=== PATIENT | female | born 1930 | race Caucasian/White ===

== ENCOUNTER → 2017-03-15 | Outpatient (CLI) | payer OTHER ==
[~2017-03-15] MED LIST: ACET-1311 PO; AMX500 PO; CHOL200010 PO; DOCU-94 PO; EFF75 PO; HYDR-5688 PO; NAPR375T3 PO; RANI150T3 PO; SENN-61 PO; TRAZ50TA35 PO
[2017-03-15 13:46] LABS: AST/SGOT 12 U/L (15-37); BLOOD UREA NITROGEN 17 mg/dl (7-18); CARBON DIOXIDE 28 mmol/L (21-32); CHLORIDE 108 mmol/L (98-107); GLUCOSE 125 mg/dl (70-99); POTASSIUM 3.6 mmol/L (3.5-5.1); SODIUM 143 mmol/L (136-145)
[2017-03-15 13:48] LABS: ALKALINE PHOSPHATASE 34 U/L (45-117); ALT/SGPT 11 U/L (12-78)
== END | disposition home or self-care (01) ==
LOC: C.LABBFT 10:22
PROVIDERS: ATTEND Family Medicine
DX: I10 Essential (primary) hypertension (principal); R26.9 Unspecified abnormalities of gait and mobility; F41.9 Anxiety disorder, unspecified

== ENCOUNTER 2017-04-23 09:23 | Emergency (ER) | payer OTHER ==
[~2017-04-23] VITALS: Ht 165.1 cm; Wt 63.0 kg
[~2017-04-23 09:23] MED LIST changes: +NAPR-1221 PO; -NAPR375T3 PO
[2017-04-23 09:45] VITALS: TEMP 36.6; Ht 165.1 cm; Wt 63.0 kg
[2017-04-23 10:01] LABS: BASO % 0.6 %; BASO ABS # 0.04 K/uL (0-0.2); COMPLETE YES; EOS % 4.2 %; HEMATOCRIT 37.6 % (37-47); IG% 0.1 %; LYMPH % 15.7 %; LYMPH ABS # 1.05 K/uL (1.2-3.4); MEAN CORPUSCULAR HEMOGLOBIN 28.9 pg (25-34); MEAN CORPUSCULAR HGB CONC 32.2 g/dl (32-36); MEAN PLATELET VOLUME 9.3 fL (7.4-10.4); MONO % 13.8 %; NEUT % 65.6 %; PLATELET COUNT 294 K/uL (130-400); RED BLOOD COUNT 4.18 M/uL (4.2-5.4); WHITE BLOOD COUNT 6.67 K/uL (4.8-10.8)
--- NOTE | 2017-04-23 10:20 | DIAGNOSTIC IMAGING REPORT ---
CHEST ONE VIEW PORTABLE CLINICAL HISTORY: 87 years-old Female presenting with AMS. TECHNIQUE: Portable upright AP view of the chest was obtained. COMPARISON: 06/02/2016. FINDINGS: Partially visualized ventriculoperitoneal shunt, which appears loosely looped in the right upper quadrant of the abdomen. Prominent aortic contour with atherosclerosis. Cardiac silhouette top normal in size. Prominent reticular lung markings unchanged from prior exam. No new focal infiltrate. No large effusion or pneumothorax. Osteopenia suggested. Partially visualized cervical fusion hardware. Upper abdomen normal. IMPRESSION: 1. Expected appearance of the ventriculoperitoneal shunt along the visualized course. 2. Chronic reticular lung markings could indicate underlying chronic lung disease. No new focal infiltrate. Electronically signed by: Antonio Winston M.D. 04/23/2017 10:17 AM Dictated Date/Time: 04/23/2017 10:15 AM
[2017-04-23] MEDS ORDERED: ZOLP6.2529 PO (10:24)
[2017-04-23] MEDS ORDERED: MULT60CA PO (10:24)
--- NOTE | 2017-04-23 10:27 | DIAGNOSTIC IMAGING REPORT ---
CT HEAD WITHOUT CONTRAST (CT) CLINICAL HISTORY: R mental status. Confusion. COMPARISON STUDY: 04/26/2014 TECHNIQUE: Axial CT of the brain is performed from the vertex to the skull base. IV contrast was not administered for this examination. A dose lowering technique was utilized adhering to the principles of ALARA. CT DOSE: 614.27 mGy.cm FINDINGS: No intra or extra-axial mass lesions are visualized. There is no CT evidence of acute cortical infarction. There is no evidence of midline shift. There is no acute hemorrhage. No calvarial fractures are visualized. There are patchy white matter hypodensities likely on a small vessel basis. There is mild ventricular dilatation, slightly less pronounced than on the preceding study. There has been interval placement of a right frontal shunt catheter. Tip terminates within the anterior horn the right lateral ventricle. There is minor mucosal thickening within the left posterior sphenoid. IMPRESSION: 1. Interval placement of a right frontal ventriculostomy catheter 2. No acute intracranial findings. Electronically signed by: Emir Barrios M.D. 04/23/2017 10:26 AM Dictated Date/Time: 04/23/2017 10:23 AM
[2017-04-23] MEDS ORDERED: ZOLP5TAB6 PO (10:28)
[2017-04-23 10:36] LABS: ALT/SGPT 17 U/L (12-78); AST/SGOT 12 U/L (15-37); BLOOD UREA NITROGEN 18 mg/dl (7-18); BUN/CREATININE RATIO 32.9 (10-20); CALCIUM 8.4 mg/dl (8.5-10.1); CARBON DIOXIDE 27 mmol/L (21-32); CHLORIDE 105 mmol/L (98-107); CREATININE 0.56 mg/dl (0.60-1.20); GLUCOSE 91 mg/dl (70-99); POTASSIUM 4.4 mmol/L (3.5-5.1); SODIUM 143 mmol/L (136-145)
[2017-04-23 10:39] LABS: ALKALINE PHOSPHATASE 31 U/L (45-117)
[2017-04-23 11:03] LABS: URINE APPEARANCE TURBID (CLEAR); URINE BILIRUBIN NEG (NEG); URINE COLOR YELLOW; URINE NITRITE POS (NEG); URINE SPECIFIC GRAVITY 1.025 (1.000-1.030); UROBILINOGEN NEG (NEG); ZZURINE CULT IF INDIC CATH YES
[2017-04-23 11:07] LABS: MANUAL MICROSCOPIC REQUIRED? NO; REVIEW REQ? YES
[2017-04-23] MEDS ORDERED: CEFTRIAXONE SOD INJ 1 GM ADDVIAL IV STA (11:18)
[2017-04-23] MEDS ORDERED: CEPH500C PO (11:22)
--- NOTE | 2017-04-23 11:22 | EMERGENCY ROOM VISIT NOTE ---
History Report prepared by Shahida: Glen Quiñones Under the Supervision of: Dr. Qamar Sadler M.D. First contact with patient: 09:42 Stated Complaint: CONFUSION History of Present Illness The patient is a 87 year old female who presents to the Emergency Room by EMS with complaints of a constant altered mental status beginning shortly prior to arrival. She believes her caregiver called EMS. Nursing staff states that the patient was reported to have been slightly confused upon waking up today. They state that the patient was reported to have been complaining of "not feeling well". They note that the patient has been taking Ambien to sleep recently. The patient denies taking an increased dose of Ambien. She also complains of mild burning with urination. The patient denies any SOB, neck pain, abdominal pain, chest pain, or headache. Source of History: patient, nursing staff Onset: Shortly prior to arrival Quality: other (altered mental status) Timing: constant Associated Symptoms: + urinary symptoms (mild burning ), No headache, No neck pain, No chest pain, No SOB, No abdominal pain, No back pain Review of Systems See HPI for pertinent positives & negatives. A total of 10 systems reviewed and were otherwise negative. Past Medical & Surgical Medical Problems: (1) Displaced fracture of right femoral neck (2) Infection of prosthetic hip joint Surgical Problems: (1) Spinal stenosis Family History No significant family history Social History Smoking Status: Never Smoker Alcohol Use: none Drug Use: none Marital Status: Housing Status: lives with significant other Occupation Status: retired Current/Historical Medications Scheduled Amoxicillin (Amoxicillin), 2,000 MG PO UD Cephalexin Monohydrate (Keflex), 500 MG PO TID Cholecalciferol (Vitamin D), 4,000 UNIT PO DAILY Multiple Vitamins W/ Minerals (Preservision Areds 2), 1 TAB PO BID Ranitidine Hcl (Zantac), 150 MG PO BID Venlafaxine Hcl (Effexor), 75 MG PO QPM Zolpidem Tartrate (Zolpidem Tartrate Er), 6.25 MG PO HS Scheduled PRN Acetaminophen (Tylenol), 650 MG PO Q4 PRN for Pain Hydrocodone/Acetaminophen 5MG/325MG (Onward 5MG/325MG), 1-2 TABLET PO Q4 PRN for Pain Zolpidem Tartrate (Zolpidem Tartrate), 5 MG PO HS PRN for Sleep Allergies Coded Allergies: No Known Allergies (Unverified , 04/23/17) Physical Exam Vital Signs Date Time Temp Pulse Resp B/P (MAP) Pulse Ox O2 Delivery O2 Flow Rate FiO2 04/23/17 12:26 69 18 177/79 99 Room Air 04/23/17 11:06 67 16 181/86 93 Room Air 04/23/17 09:46 65 04/23/17 09:45 36.6 63 18 168/87 91 Room Air Physical Exam GENERAL: Patient is elderly appearing and in no acute distress. HEENT: No acute trauma, normocephalic atraumatic, mucous membranes moist, no nasal congestion, no scleral icterus. NECK: No stridor, no adenopathy, no meningismus, trachea is midline. LUNGS: No dyspnea. Clear to auscultation and equal bilaterally. No wheeze, no rhonchi. HEART: Regular rate and rhythm. No murmurs, rubs, gallops appreciated. ABDOMEN: Soft, nontender, bowel sounds positive, no masses appreciated, no peritonitis. BACK: No midline tenderness, no CVA tenderness EXTREMITIES: Normal motion all extremities, no cyanosis, no edema. NEUROLOGIC: Alert and oriented, no acute motor or sensory deficits, no focal weakness, cranial nerves grossly intact. SKIN: No rash, no jaundice, no diaphoresis. Medical Decision & Procedures ER Provider Diagnostic Interpretation: Radiology results and stated below per my review and radiologist interpretation: CT HEAD WITHOUT CONTRAST (CT) FINDINGS: No intra or extra-axial mass lesions are visualized. There is no CT evidence of acute cortical infarction. There is no evidence of midline shift. There is no acute hemorrhage. No calvarial fractures are visualized. There are patchy white matter hypodensities likely on a small vessel basis. There is mild ventricular dilatation, slightly less pronounced than on the preceding study. There has been interval placement of a right frontal shunt catheter. Tip terminates within the anterior horn the right lateral ventricle. There is minor mucosal thickening within the left posterior sphenoid. IMPRESSION: 1. Interval placement of a right frontal ventriculostomy catheter 2. No acute intracranial findings. Electronically signed by: Emir Barrios M.D. 04/23/2017 10:26 AM CHEST ONE VIEW PORTABLE FINDINGS: Partially visualized ventriculoperitoneal shunt, which appears loosely looped in the right upper quadrant of the abdomen. Prominent aortic contour with atherosclerosis. Cardiac silhouette top normal in size. Prominent reticular lung markings unchanged from prior exam. No new focal infiltrate. No large effusion or pneumothorax. Osteopenia suggested. Partially visualized cervical fusion hardware. Upper abdomen normal. IMPRESSION: 1. Expected appearance of the ventriculoperitoneal shunt along the visualized course. 2. Chronic reticular lung markings could indicate underlying chronic lung disease. No new focal infiltrate. Electronically signed by: Antonio Winston M.D. 04/23/2017 10:17 AM RIGHT THUMB 3 VIEWS DISCUSSION: The bones are osteopenic. There is a comminuted intra-articular fracture of the distal phalanx. 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 IMPRESSION: Comminuted intra-articular fracture of the distal phalanx Electronically signed by: Emir Barrios M.D. 04/23/2017 1:46 PM Laboratory Results 04/23/17 09:50 Red Blood Count 4.18, Mean Corpuscular Volume 90.0, Mean Corpuscular Hemoglobin 28.9, Mean Corpuscular Hemoglobin Concent 32.2, Mean Platelet Volume 9.3, Neutrophils (%) (Auto) 65.6, Lymphocytes (%) (Auto) 15.7, Monocytes (%) (Auto) 13.8, Eosinophils (%) (Auto) 4.2, Basophils (%) (Auto) 0.6, Neutrophils # (Auto ) 4.37, Lymphocytes # (Auto) 1.05, Monocytes # (Auto) 0.92, Eosinophils # (Auto ) 0.28, Basophils # (Auto) 0.04 04/23/17 09:50 Test 04/23/17 09:50 04/23/17 10:40 White Blood Count 6.67 K/uL (4.8-10.8) Red Blood Count 4.18 M/uL (4.2-5.4) Hemoglobin 12.1 g/dL (12.0-16.0) Hematocrit 37.6 % (37-47) Mean Corpuscular Volume 90.0 fL (80-100) Mean Corpuscular Hemoglobin 28.9 pg (25-34) Mean Corpuscular Hemoglobin Concent 32.2 g/dl (32-36) Platelet Count 294 K/uL (130-400) Mean Platelet Volume 9.3 fL (7.4-10.4) Neutrophils (%) (Auto) 65.6 % Lymphocytes (%) (Auto) 15.7 % Monocytes (%) (Auto) 13.8 % Eosinophils (%) (Auto) 4.2 % Basophils (%) (Auto) 0.6 % Neutrophils # (Auto) 4.37 K/uL (1.4-6.5) Lymphocytes # (Auto) 1.05 K/uL (1.2-3.4) Monocytes # (Auto) 0.92 K/uL (0.11-0.59) Eosinophils # (Auto) 0.28 K/uL (0-0.5) Basophils # (Auto) 0.04 K/uL (0-0.2) RDW Standard Deviation 48.5 fL (36.4-46.3) RDW Coefficient of Variation 14.8 % (11.5-14.5) Immature Granulocyte % (Auto) 0.1 % Immature Granulocyte # (Auto) 0.01 K/uL (0.00-0.02) Anion Gap 11.0 mmol/L (3-11) Est Creatinine Clear Calc Drug Dose 63.7 ml/min Estimated GFR () 97.2 Estimated GFR (Non- 83.8 BUN/Creatinine Ratio 32.9 (10-20) Calcium Level 8.4 mg/dl (8.5-10.1) Total Bilirubin 0.3 mg/dl (0.2-1) Direct Bilirubin 0.1 mg/dl (0-0.2) Aspartate Amino Transf (AST/SGOT) 12 U/L (15-37) Alanine Aminotransferase (ALT/SGPT) 17 U/L (12-78) Alkaline Phosphatase 31 U/L (45-117) Troponin I < 0.015 ng/ml (0-0.045) Total Protein 6.6 gm/dl (6.4-8.2) Albumin 3.6 gm/dl (3.4-5.0) Urine Color YELLOW Urine Appearance TURBID (CLEAR) Urine pH 6.0 (4.5-7.5) Urine Specific [place] 1.025 (1.000-1.030) Urine Protein 2+ (NEG) Urine Glucose (UA) NEG (NEG) Urine Ketones TRACE (NEG) Urine Occult Blood 2+ (NEG) Urine Nitrite POS (NEG) Urine Bilirubin NEG (NEG) Urine Urobilinogen NEG (NEG) Urine Leukocyte Esterase LARGE (NEG) Urine WBC (Auto) >30 /hpf (0-5) Urine RBC (Auto) 10-30 /hpf (0-4) Urine Hyaline Casts (Auto) 1-5 /lpf (0-5) Urine Epithelial Cells (Auto) 10-20 /lpf (0-5) Urine Bacteria (Auto) 4+ (NEG) Urine Yeast (Auto) (NONE PRSENT) Laboratory results as reviewed by me. Medications Administered Medications (Trade) Dose Ordered Sig/Kaitlin Route Start Time Stop Time Status Last Admin Dose Admin Ceftriaxone Sodium (Rocephin Inj) 1 gm NOW STAT IV 04/23/17 11:18 04/23/17 11:19 DC 04/23/17 11:39 1 GM ECG Indication: altered mental status Rate (beats per minute): 58 Rhythm: sinus bradycardia Findings: no acute ischemic change, no ectopy ED Course 0944: The patient was evaluated in room A11B. A complete history and physical exam was performed. 1118: Ordered Rocephin Inj 1 gm IV. 1120: Reevaluated the patient. She was sleeping during her time here. She is now awake, answering all questions and feels fine. She notes that she injured her finger recently. 1340: Reevaluated the patient. Her caregiver is at bedside. She requests an ambulatory trial. Discussed results and discharge instructions: she verbalized understanding and agreement. The patient is ready for discharge. Medical Decision Differential: Toxicological, Infectious, Stroke, SAH, Trauma, Electrolyte Abnormality, Hypoglycemia, Alcohol Intoxication, Drug Intoxication, Cardiac Abnormality, Sepsis, Meningitis/Encephalitis, Trauma, Excited Delirium, Serotonin Syndrome, Psychiatric, amongst other pathologies entertained. 87 yr female arrives for evaluation following altered mental status. Confused on arrival without acute findings on exam. CT head, cxr, labs unremarkable and patient is found to have UTI. We gave her IV Rocephin and she slept for 2 hours. We woke her up and she is feeling much better and interactive. Notes right thumb pain s/p hitting it this morning which revealed distal thumb fracture on xray and placed in splint. Ambulated and feeling well thus discharged to home with plan to do PO Keflex x 1 week. Reviewed symptoms requiring RTED. Medication Reconcilliation Current Medication List: was personally reviewed by me Blood Pressure Screening Patient's blood pressure: Elevated blood pressure Blood pressure disposition: Referred to PCP Impression Primary Impression: UTI (urinary tract infection) Additional Impressions: Confusion Thumb fracture Scribe Attestation The scribe's documentation has been prepared under my direction and personally reviewed by me in its entirety. I confirm that the note above accurately reflects all work, treatment, procedures, and medical decision making performed by me. Departure Information Dispostion Home / Self-Care Prescriptions Cephalexin Monohydrate (Keflex) 500 Mg Cap 500 MG PO TID for 7 Days, #21 CAP Prov: Qamar Sadler M.D. 04/23/17 Referrals Antonio Barrera M.D. (PCP) Patient Instructions My [facility], UTI Additional Instructions Return if fever, vomiting, worsening confusion, falls, or other concerns. Wear splint on finger for next 2 weeks. Have thumb rechecked by primary provider. Return if worsening pain, swelling or other concerns. Problem Qualifiers
[2017-04-23 12:26] VITALS: BP 177/79; PULSE 69; O2SAT 99
--- NOTE | 2017-04-23 13:47 | DIAGNOSTIC IMAGING REPORT ---
RIGHT THUMB 3 VIEWS CLINICAL HISTORY: right thumb injury, bruising PAIN COMPARISON: None. DISCUSSION: The bones are osteopenic. There is a comminuted intra-articular fracture of the distal phalanx. 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 IMPRESSION: Comminuted intra-articular fracture of the distal phalanx Electronically signed by: Emir Barrios M.D. 04/23/2017 1:46 PM Dictated Date/Time: 04/23/2017 1:38 PM
== END 2017-04-23 12:47 | disposition home or self-care (01) ==
LOC: EDBD 09:23 → C.EDA 09:24
DX: N39.0 Urinary tract infection, site not specified (principal); S62.521A Displaced fracture of distal phalanx of right thumb, initial encounter for closed fracture; W22.8XXA Striking against or struck by other objects, initial encounter

== ENCOUNTER 2017-04-23 21:29 | Emergency (ER) | payer OTHER ==
[~2017-04-23] VITALS: Ht 162.6 cm; Wt 61.4 kg
[~2017-04-23 21:29] MED LIST changes: +CEPH500C PO; +MULT60CA PO; +ZOLP5TAB6 PO; +ZOLP6.2529 PO
[2017-04-23] MEDS ORDERED: SODIUM CHLORIDE 0.9% 1000ML 1,000 ML IV SCH (21:30)
--- NOTE | 2017-04-23 21:47 | DIAGNOSTIC IMAGING REPORT ---
CT OF THE HEAD WITHOUT CONTRAST CLINICAL HISTORY: Stroke. COMPARISON STUDY: Head CT April 26, 2014 and April 23, 2017 at 10:[address] DOSE: 655.73 mGy.cm TECHNIQUE: Helical axial images of the head were obtained without IV contrast. Automated exposure control was utilized for the study. A dose lowering technique was utilized adhering to the principles of ALARA. FINDINGS: There has been interval development of a 3.6 x 2.2 intraparenchymal hematoma within the posterior right frontal lobe since head CT performed earlier today. There is mild associated vasogenic edema. Ventricular system is stable. A right frontal ventriculostomy catheter is unchanged in position. Basilar cisterns are patent. There are no extra-axial collections. White matter hypodensities suggest moderate disease. No calvarial fracture is identified. Mild secretions are noted within the left sphenoid sinus. IMPRESSION: Interval development of a 3.6 x 2.2 cm intraparenchymal hematoma within the posterior right frontal lobe since head CT performed earlier today. Mild associated vasogenic edema. Findings discussed with Dr. Tucker at time of dictation. Otherwise, unchanged appearance of the head. Electronically signed by: Rl Lee M.D. 04/23/2017 9:46 PM Dictated Date/Time: 04/23/2017 9:40 PM
[2017-04-23 21:49] VITALS: TEMP 36.7; Ht 162.6 cm; Wt 61.4 kg
[2017-04-23] MEDS ORDERED: ACETAMINOPHEN IV 100 ML IV STA (21:51)
[2017-04-23] MEDS ORDERED: METOPROLOL TARTRATE 1 MG/ML VIAL IV STA (21:56)
[2017-04-23 21:57] LABS: BASO % 0.5 %; BASO ABS # 0.04 K/uL (0-0.2); COMPLETE YES; EOS % 2.3 %; HEMATOCRIT 40.9 % (37-47); IG% 0.2 %; LYMPH ABS # 1.33 K/uL (1.2-3.4); MEAN CELL VOLUME 89.3 fL (80-100); MEAN CORPUSCULAR HEMOGLOBIN 29.7 pg (25-34); MEAN CORPUSCULAR HGB CONC 33.3 g/dl (32-36); MEAN PLATELET VOLUME 9.6 fL (7.4-10.4); MONO % 12.9 %; NEUT % 68.1 %; PLATELET COUNT 340 K/uL (130-400); RED BLOOD COUNT 4.58 M/uL (4.2-5.4)
[2017-04-23] MEDS ORDERED: LEVETIRACETAM IV 1,000 MG in DEXTROSE 5% 100ML 100 ML IV STA (21:57)
[2017-04-23 22:06] LABS: INR 1.1 (0.9-1.1); PARTIAL THROMBOPLASTIN RATIO 1.2; PROTHROMBIN TIME (PATIENT) 11.5 SECONDS (9.0-12.0)
[2017-04-23 22:06] LABS: ISTAT CREATININE 0.6 mg/dl (0.6-1.3); ISTAT HEMOGLOBIN 14.3 g/dl (12.0-16.0); ISTAT IONIZED CALCIUM 1.2 mmol/l (1.12-1.32)
--- NOTE | 2017-04-23 22:13 | EMERGENCY ROOM VISIT NOTE ---
History Report prepared by Shahida: Josue Manuel Under the Supervision of: Dr. Bogdan Reyes M.D. First contact with patient: 21:35 Chief Complaint: STROKE SYMPTOMS Stated Complaint: STROKE ALERT Nursing Triage Summary: Pt presents als for evaluation of sudden onset headache and left arm weakness starting at 2044 tonight. Pt was seen in ER earlier today for fall. Pt unable to lift arm off bed. History of Present Illness The patient is an 87 year old female who presents to the Emergency Room with complaints of sudden onset headache and left sided weakness occurring around 1999 tonight. The patient currently rates her discomfort as a 10/10 in severity , and this is the worst headache of her life. The patient is not currently on any blood thinners. She also had a fall this morning, and she was complaining of left thumb pain, and she was not complaining of these symptoms this morning. The patient has a history of a [employer] shunt on the right side which was placed in April of 2016. Source of History: patient, family, EMS Onset: 1999 Position: head, other (left side) Symptom Intensity: 10/10 Quality: other (weakness) Timing: other (sudden onset) Associated Symptoms: + headache, + weakness Review of Systems See HPI for pertinent positives & negatives. A total of 10 systems reviewed and were otherwise negative. Past Medical & Surgical Medical Problems: (1) Displaced fracture of right femoral neck (2) Infection of prosthetic hip joint Surgical Problems: (1) Spinal stenosis Family History No significant family history Social History Smoking Status: Never Smoker Alcohol Use: none Drug Use: none Marital Status: Housing Status: lives with significant other Occupation Status: retired Current/Historical Medications Scheduled Amoxicillin (Amoxicillin), 2,000 MG PO UD Cephalexin Monohydrate (Keflex), 500 MG PO TID Cholecalciferol (Vitamin D), 4,000 UNIT PO DAILY Multiple Vitamins W/ Minerals (Preservision Areds 2), 1 TAB PO BID Ranitidine Hcl (Zantac), 150 MG PO BID Venlafaxine Hcl (Effexor), 75 MG PO QPM Zolpidem Tartrate (Zolpidem Tartrate Er), 6.25 MG PO HS Scheduled PRN Acetaminophen (Tylenol), 650 MG PO Q4 PRN for Pain Hydrocodone/Acetaminophen 5MG/325MG ([place] 5MG/325MG), 1-2 TABLET PO Q4 PRN for Pain Zolpidem Tartrate (Zolpidem Tartrate), 5 MG PO HS PRN for Sleep Allergies Coded Allergies: No Known Allergies (Unverified , 04/23/17) Physical Exam Vital Signs Date Time Temp Pulse Resp B/P (MAP) Pulse Ox O2 Delivery O2 Flow Rate FiO2 04/23/17 23:41 70 122/69 95 04/23/17 23:36 71 21 111/59 95 04/23/17 23:31 70 24 128/67 94 04/23/17 23:26 72 21 119/58 95 04/23/17 23:21 70 19 129/65 95 04/23/17 23:16 73 17 124/64 96 04/23/17 23:11 72 19 126/63 96 04/23/17 23:07 126/68 04/23/17 23:06 74 18 95 04/23/17 23:01 132/63 04/23/17 22:59 73 21 95 04/23/17 22:57 136/68 04/23/17 22:51 139/65 04/23/17 22:49 72 17 95 04/23/17 22:46 130/66 04/23/17 22:41 128/70 04/23/17 22:39 68 20 94 04/23/17 22:36 145/73 04/23/17 22:31 152/74 04/23/17 22:29 61 19 94 04/23/17 22:26 170/75 04/23/17 22:21 157/76 04/23/17 22:19 61 18 94 04/23/17 22:14 65 17 93 04/23/17 22:13 165/81 04/23/17 22:09 63 15 176/79 92 04/23/17 22:05 172/86 04/23/17 22:04 78 17 95 04/23/17 21:59 85 21 94 04/23/17 21:56 Room Air 04/23/17 21:56 72 175/91 04/23/17 21:54 78 26 94 04/23/17 21:49 81 30 94 04/23/17 21:49 36.7 78 18 168/91 94 Room Air 04/23/17 21:46 82 04/23/17 21:44 82 21 95 04/23/17 21:43 168/91 Physical Exam GENERAL: Patient is a healthy-appearing well-nourished female HEAD: Normocephalic atraumatic EYES: Ocular movements intact pupils equal and react to light OROPHARYNX mucous membranes are moist no exudates present no erythema or edema present NECK: Supple no nuchal rigidity CHEST: Good equal expansion LUNGS: Clear and equal to auscultation CARDIAC: Normal S1 and S2 ABDOMEN: Soft nontender no guarding BACK: No CVA tenderness EXTREMITIES: 3/5 strength in the left arm and left leg. No pain upon palpation no clubbing cyanosis or edema NEURO: Patient is following commands and answering questions appropriately. Alert and oriented x3 Cranial Nerves 2-12 grossly intact Medical Decision & Procedures ER Provider Diagnostic Interpretation: Radiology results as stated below per my review and radiologist interpretation: CT OF THE HEAD WITHOUT CONTRAST CLINICAL HISTORY: Stroke. COMPARISON STUDY: Head CT April 26, 2014 and April 23, 2017 at 10:[address] DOSE: 655.73 mGy.cm TECHNIQUE: Helical axial images of the head were obtained without IV contrast. Automated exposure control was utilized for the study. A dose lowering technique was utilized adhering to the principles of ALARA. FINDINGS: There has been interval development of a 3.6 x 2.2 intraparenchymal hematoma within the posterior right frontal lobe since head CT performed earlier today. There is mild associated vasogenic edema. Ventricular system is stable. A right frontal ventriculostomy catheter is unchanged in position. Basilar cisterns are patent. There are no extra-axial collections. White matter hypodensities suggest moderate disease. No calvarial fracture is identified. Mild secretions are noted within the left sphenoid sinus. IMPRESSION: Interval development of a 3.6 x 2.2 cm intraparenchymal hematoma within the posterior right frontal lobe since head CT performed earlier today. Mild associated vasogenic edema. Findings discussed with Dr. Tucker at time of dictation. Otherwise, unchanged appearance of the head. Electronically signed by: Rl Lee M.D. 04/23/2017 9:46 PM Dictated Date/Time: 04/23/2017 9:40 PM CHEST ONE VIEW PORTABLE CLINICAL HISTORY: Stroke. COMPARISON STUDY: Chest radiograph performed earlier today. FINDINGS: Patient is rotated. Ventriculoperitoneal shunt catheter is partially imaged. A 1 level vertebral augmentation within the upper lumbar spine is incidentally noted. Patient is rotated. Interstitial thickening is likely chronic. There is no evidence of pulmonary edema. There is no lobar consolidation. Apparent right suprahilar opacity is unchanged and likely due to summation artifact. Cardiomediastinal silhouette is stable. Cervical spine fusion is incidentally noted. IMPRESSION: No acute cardiopulmonary findings. No change in appearance of the chest. Chronic interstitial thickening consistent with interstitial lung disease. Rotated study. Electronically signed by: Rl Lee M.D. 04/23/2017 10:09 PM Dictated Date/Time: 04/23/2017 10:07 PM Laboratory Results 04/23/17 21:47 Red Blood Count 4.58, Mean Corpuscular Volume 89.3, Mean Corpuscular Hemoglobin 29.7, Mean Corpuscular Hemoglobin Concent 33.3, Mean Platelet Volume 9.6, Neutrophils (%) (Auto) 68.1, Lymphocytes (%) (Auto) 16.0, Monocytes (%) (Auto) 12.9, Eosinophils (%) (Auto) 2.3, Basophils (%) (Auto) 0.5, Neutrophils # (Auto ) 5.65, Lymphocytes # (Auto) 1.33, Monocytes # (Auto) 1.07, Eosinophils # (Auto ) 0.19, Basophils # (Auto) 0.04 04/23/17 21:47 Test 04/23/17 21:47 04/23/17 21:52 04/23/17 21:54 White Blood Count 8.30 K/uL (4.8-10.8) Red Blood Count 4.58 M/uL (4.2-5.4) Hemoglobin 13.6 g/dL (12.0-16.0) Hematocrit 40.9 % (37-47) Mean Corpuscular Volume 89.3 fL (80-100) Mean Corpuscular Hemoglobin 29.7 pg (25-34) Mean Corpuscular Hemoglobin Concent 33.3 g/dl (32-36) Platelet Count 340 K/uL (130-400) Mean Platelet Volume 9.6 fL (7.4-10.4) Neutrophils (%) (Auto) 68.1 % Lymphocytes (%) (Auto) 16.0 % Monocytes (%) (Auto) 12.9 % Eosinophils (%) (Auto) 2.3 % Basophils (%) (Auto) 0.5 % Neutrophils # (Auto) 5.65 K/uL (1.4-6.5) Lymphocytes # (Auto) 1.33 K/uL (1.2-3.4) Monocytes # (Auto) 1.07 K/uL (0.11-0.59) Eosinophils # (Auto) 0.19 K/uL (0-0.5) Basophils # (Auto) 0.04 K/uL (0-0.2) RDW Standard Deviation 47.7 fL (36.4-46.3) RDW Coefficient of Variation 14.6 % (11.5-14.5) Immature Granulocyte % (Auto) 0.2 % Immature Granulocyte # (Auto) 0.02 K/uL (0.00-0.02) Prothrombin Time 11.5 SECONDS (9.0-12.0) Prothromb Time International Ratio 1.1 (0.9-1.1) Activated Partial Thromboplast Time 30.2 SECONDS (21.0-31.0) Partial Thromboplastin Ratio 1.2 Est Creatinine Clear Calc Drug Dose 55.2 ml/min Estimated GFR () 94.0 Estimated GFR (Non- 81.1 BUN/Creatinine Ratio 28.2 (10-20) Calcium Level 9.7 mg/dl (8.5-10.1) Magnesium Level 2.1 mg/dl (1.8-2.4) Total Creatine Kinase 39 U/L (26-192) Creatine Kinase MB 1.3 ng/ml (0.5-3.6) Creatine Kinase MB Ratio 3.3 (0-3.0) Troponin I < 0.015 ng/ml (0-0.045) Bedside Glucose 88 mg/dl (70-90) Bedside Hemoglobin 14.3 g/dl (12.0-16.0) Bedside Hematocrit 42 % (37-47) Bedside Sodium 139 mEq/L (135-144) Bedside Potassium 4.4 mEq/L (3.3-5.0) Bedside Chloride 104 mEq/L (101-112) Bedside Total CO2 29 mEq/l (24-31) Anion Gap 12.0 mmol/L (16-25) Bedside Blood Urea Nitrogen 19 mg/dl (7-18) Bedside Creatinine 0.6 mg/dl (0.6-1.3) Bedside Glucose (other) 89 mg/dl (70-99) Bedside Ionized Calcium (Jhonatan) 1.20 mmol/l (1.12-1.32) Labs reviewed by ED physician. Medications Administered Medications (Trade) Dose Ordered Sig/Kaitlin Route Start Time Stop Time Status Last Admin Dose Admin Sodium Chloride 1,000 ml @ 50 mls/hr Q20H IV 04/23/17 21:30 04/24/17 00:55 DC 04/23/17 21:30 50 MLS/HR Acetaminophen 100 ml @ 400 mls/hr NOW STAT IV 04/23/17 21:51 04/23/17 22:05 DC 04/23/17 21:51 400 MLS/HR Metoprolol Tartrate (Lopressor Iv) 10 mg NOW STAT IV 04/23/17 21:56 04/23/17 21:57 DC 04/23/17 21:56 10 MG Hydralazine HCl (HydrALAZINE INJ) 10 mg NOW STAT IV. 04/23/17 22:27 04/23/17 22:29 DC 04/23/17 22:27 10 MG ECG Indication: weakness Rate (beats per minute): 82 Rhythm: normal sinus Findings: no acute ischemic change, no ectopy, other (Old inferior infarct) ED Course 0: Sodium Chloride 1000 ml @ 50 mls/hr IV 2134: Past medical records reviewed. The patient was evaluated in room B1. A complete history and physical examination was performed. 2150: Acetaminophen 100ml @ 400mls/hr IV 2151: I discussed the patient's case with Dr. Bowles, [facility], and he wants the patient's blood pressure to come down before transfer. 2155: Lopressor IV 10mg IV 2156: Levetiracetam 1000mg/ Dextrose 110ml @ 400mls/hr IV 2214: I discussed the patient's case with Dr. Nam, [facility] ICU, and he will accept the patient as a transfer. 2227: Hydralazine HCl 10mg IV Medical Decision Differential diagnosis: Etiologies such as metabolic, infection, hypo/hyperglycemia, electrolyte abnormalities, cardiac sources, intracerebral event, toxicologic, neurologic, as well as others were entertained. This is an 87-year-old female who presents emergency department with sudden onset of being unable to lift her left arm or left leg. Based on the patient's complaint she was immediately sent for CAT scan of the head which was concerning for intracranial hemorrhage. Upon return from CAT scan to a , I discussed the patient's prognosis with both patient and son. Due to the fact that we do not have a neurosurgeon here at [facility] I asked where they would like to be transferred to. They would both like to go to [facility]. I did discuss the case with the neurosurgeon educational sign language interpreter at [facility] who asked that the patient's blood pressure be controlled area for this reason the patient was given labetalol as well as hydralazine in the emergency department. Repeat examination revealed improvement patient's symptoms. Patient was given Tylenol for her pain. She was transferred via [facility]. Patient and son were in agreement with the treatment plan. Medication Reconcilliation Current Medication List: was personally reviewed by me Blood Pressure Screening Patient's blood pressure: Elevated blood pressure Will be managed by the skilled nursing facilities professional and surgeon Consults Time Called: 2142 [facility] Returned Call: [phone] I discussed the patient's case with Dr. Bowles, [facility], and he wants the patient's blood pressure to come down before transfer. Additional Consults: Time Called: 2142 Consulted Physician: [facility] ICU Returned Call: [phone] Additional Comments: I discussed the patient's case with Dr. Nam, [facility], and he will accept the patient as a transfer. Impression Primary Impression: Intracranial hemorrhage Critical Care I have personally spent greater than 90 minutes of critical care time in the direct management of this patient. This includes bedside care, interpretation of diagnostic studies, and testing, discussion with consultants, patient, and family members, and other required patient management activities. This 90 minutes is in excess of all separately billable procedures. Scribe Attestation The scribe's documentation has been prepared under my direction and personally reviewed by me in its entirety. I confirm that the note above accurately reflects all work, treatment, procedures, and medical decision making performed by me. Departure Information Dispostion Transfer Acute Care Facility Referrals Antonio Barrera M.D. (PCP)
[2017-04-23 22:21] LABS: BLOOD UREA NITROGEN 17 mg/dl (7-18); BUN/CREATININE RATIO 28.2 (10-20); CALCIUM 9.7 mg/dl (8.5-10.1); CARBON DIOXIDE 27 mmol/L (21-32); CHLORIDE 103 mmol/L (98-107); CKMB/CK RATIO 3.3 (0-3.0); CREATININE 0.62 mg/dl (0.60-1.20); GLUCOSE 89 mg/dl (70-99); MAGNESIUM 2.1 mg/dl (1.8-2.4); POTASSIUM 4.3 mmol/L (3.5-5.1); SODIUM 139 mmol/L (136-145)
[2017-04-23] MEDS ORDERED: HydrALAZINE HCL 20 MG/ML VIAL IV. STA (22:27)
[2017-04-23 23:41] VITALS: BP 122/69; PULSE 70; O2SAT 95
== END 2017-04-24 00:04 | disposition short-term general hospital (02) ==
LOC: EDBD 21:29 → C.EDB 21:31
DX: S06.309A Unspecified focal traumatic brain injury with loss of consciousness of unspecified duration, initial encounter (principal); W19.XXXA Unspecified fall, initial encounter; R51 Headache; Z87.81 Personal history of (healed) traumatic fracture; Z79.899 Other long term (current) drug therapy

== ENCOUNTER → 2017-06-20 | Outpatient (CLI) | payer OTHER ==
[~2017-06-20] MED LIST changes: -CEPH500C PO; -DOCU-94 PO; -NAPR-1221 PO; -SENN-61 PO; -TRAZ50TA35 PO
[2017-06-20 17:54] LABS: BLOOD UREA NITROGEN 25 mg/dl (7-18); CREATININE 0.69 mg/dl (0.60-1.20)
== END | disposition home or self-care (01) ==
LOC: C.LABBFT 14:58
PROVIDERS: ATTEND Physician Assistant
DX: Z00.00 Encounter for general adult medical examination without abnormal findings (principal)

== ENCOUNTER → 2017-06-28 | Outpatient (CLI) | payer OTHER ==
[~2017-06-28] MED LIST changes: +CEPH500C2 PO; +CYM30 PO; +LEVE500T PO; +OMEP40CA41 PO; +VENL75CA73 PO
--- NOTE | 2017-06-28 17:08 | EEG Procedure Note ---
EEG Procedure Note Date of Service Jun 28, 2017. Start / End Times Start Time: 2:36 PM End Time: 2:56 PM Referring Physician PETR Marina History This is a 87-year-old female who presents with episodes of twitching. EEG for further evaluation of possible seizure etiology. Home Medication List Scheduled Amoxicillin (Amoxicillin), 2,000 MG PO UD Cholecalciferol (Vitamin D), 4,000 UNIT PO DAILY Multiple Vitamins W/ Minerals (Preservision Areds 2), 1 TAB PO BID Ranitidine Hcl (Zantac), 150 MG PO BID Venlafaxine Hcl (Effexor), 75 MG PO QPM Zolpidem Tartrate (Zolpidem Tartrate Er), 6.25 MG PO HS Scheduled PRN Acetaminophen (Tylenol), 650 MG PO Q4 PRN for Pain Hydrocodone/Acetaminophen 5MG/325MG ([place] 5MG/325MG), 1-2 TABLET PO Q4 PRN for Pain Zolpidem Tartrate (Zolpidem Tartrate), 5 MG PO HS PRN for Sleep Description This is a 21 electrode EEG with a single channel dedicated to limited EKG. The electrodes were placed in accordance with the International 10-20 system. Intermittent movement and electrode artifact noted. Mild head movements noted by fiberglass technician At the start of the recording the patient was in an awake state. Background was well organized and composed of symmetric mixed alpha and beta frequencies. There was a symmetric well-formed moderate amplitude 8-9 Hz posterior dominant rhythm that was reactive to eye opening and closure. Hyperventilation and Intermittent photic stimulation at various frequencies produced no abnormalities. There was no state changes or sleep transients Interpretation This is a normal awake only routine EEG. There was no electrographic seizures or epileptiform discharges. Clinical Correlation A normal EEG does not rule out epilepsy if there is a strong clinical suspicion.
== END | disposition home or self-care (01) ==
LOC: C.NEUR 14:20
PROVIDERS: ATTEND Physician Assistant
DX: R25.3 Fasciculation (principal)

== ENCOUNTER → 2017-06-28 | Outpatient (CLI) | payer OTHER ==
[~2017-06-28] MED LIST changes: +GADAVIST IV PRN
--- NOTE | 2017-06-28 14:54 | DIAGNOSTIC IMAGING REPORT ---
Brain MRI WITH AND WITHOUT CONTRAST HISTORY: INTRAPARENCHYMAL HEMATOMA OF BRAIN TECHNIQUE: Multiplanar multisequence MRI of the brain was performed both before and after the intravenous administration of contrast. COMPARISON STUDY: Head CT 04/23/2017. Outside hospital brain MRI 04/25/2017. FINDINGS: There is a punctate focus of restricted diffusion seen within the left high convexity consistent with an acute infarct. There is again noted a right frontal approach ventriculostomy catheter was terminates in the frontal horn of the right lateral ventricle. This remains unchanged. The ventricles are stable in size. There is diffuse dural/pachymeningeal enhancement and thickening which has progressed. Decrease in size in the 2.0 x 1.2 cm T1 and T2 hyperintense ill-defined focus within the right posterior frontal lobe. There is mild surrounding vasogenic edema. This favors a resolving hematoma. The major vascular flow-voids at the skull base are well-maintained. Multiple scattered foci of T2 hyperintensity seen within the periventricular and subcortical white matter. These are nonspecific but suggestive of advanced microvascular ischemic change. Interval development of left-sided intra-axial fluid collections. These measure up to 1.3 cm in thickness within the left frontal region and up to 1 cm in thickness at the left parietal region. These result in mass effect along the adjacent brain parenchyma. There is approximately 2 mm of right midline shift. These fluid collections or T1 hypointense and T2 hyper to intermediate intensity. Therefore, these favor old subdural hematomas. Empyema is considered less likely. There is no associated restricted diffusion with these fluid collections. IMPRESSION: 1. Decrease in size in the 2.0 x 1.2 cm suspected intracranial hematoma within the right posterior frontal lobe. Mild surrounding vasogenic edema persists. 2. Interval development of left extra-axial fluid collection as described above which favors an old subdural hematoma. However, this was not present on the prior studies. Follow-up head CT in 12 to 24 hours recommended to ensure stability. This results in 2 mm of right midline shift. 3. Progressive diffuse dural/pachymeningeal enhancement and thickening. This may be due to chronic subdural hematomas or postoperative change. An infectious or neoplastic process could also have a similar appearance but is considered less likely. 4. Acute punctate infarct within the left high convexity. 5. Additional findings as described above Electronically signed by: Hill Last M.D. 06/28/2017 2:53 PM Dictated Date/Time: 06/28/2017 2:33 PM
== END | disposition home or self-care (01) ==
LOC: C.MRIBC 12:30
PROVIDERS: ATTEND Physician Assistant
DX: S06.360A Traumatic hemorrhage of cerebrum, unspecified, without loss of consciousness, initial encounter (principal); X58.XXXA Exposure to other specified factors, initial encounter; G93.9 Disorder of brain, unspecified

== ENCOUNTER → 2017-06-29 | Outpatient (CLI) | payer OTHER ==
[~2017-06-29] MED LIST changes: -GADAVIST IV PRN
--- NOTE | 2017-06-29 11:56 | DIAGNOSTIC IMAGING REPORT ---
CT HEAD WITHOUT CONTRAST (CT) CLINICAL HISTORY: S06.360A intraparenchymal hematoma. Follow-up study. COMPARISON STUDY: Head CT dated 04/23/2017, MRI the brain dated 06/28/2017 TECHNIQUE: Axial CT of the brain is performed from the vertex to the skull base. IV contrast was not administered for this examination. A dose lowering technique was utilized adhering to the principles of ALARA. CT DOSE: 687.98 mGy.cm FINDINGS: There is a right frontal ventriculostomy catheter, unchanged in appearance and position. There is a mixed attenuation 11 mm left convexity subdural hematoma which was not present on the April 23, 2017 CT scan. This extra-axial collection remains unchanged in size from the MRI performed 06/28/2017. There is no CT evidence of acute cortical infarction. The previously identified right parietal convexity hemorrhage has resorbed. There is an area of encephalomalacia at this location. There is very minor [id number] midline shift, similar to the prior MRI study. There are patchy white matter hypodensities likely on a small vessel basis. There is no evidence of hydrocephalus. The ventricular system appears slightly smaller than on the prior April 2017 study There is no evidence of acute sinusitis IMPRESSION: 1. Interval resorption of the right parietal convexity intraparenchymal hemorrhage 2. Mixed attenuation 11 mm left convexity extra-axial fluid collection, likely representing a subdural hematoma. This remains unchanged in size from the MRI study performed 06/28/2017 Electronically signed by: Emir Barrios M.D. 06/29/2017 11:55 AM Dictated Date/Time: 06/29/2017 11:50 AM
== END | disposition home or self-care (01) ==
LOC: C.CTS 11:38
PROVIDERS: ATTEND Physician Assistant
DX: S06.360A Traumatic hemorrhage of cerebrum, unspecified, without loss of consciousness, initial encounter (principal); X58.XXXA Exposure to other specified factors, initial encounter

== ENCOUNTER 2017-06-30 11:52 | Emergency (ER) | payer OTHER ==
[~2017-06-30] VITALS: Ht 162.6 cm; Wt 59.0 kg
[~2017-06-30 11:52] MED LIST changes: -CEPH500C2 PO; -CYM30 PO; -LEVE500T PO; -OMEP40CA41 PO; -VENL75CA73 PO
[2017-06-30] MEDS ORDERED: CEPH500C2 PO (11:58)
[2017-06-30] MEDS ORDERED: VENL75CA73 PO (11:58)
[2017-06-30] MEDS ORDERED: CYM30 PO (11:58)
[2017-06-30] MEDS ORDERED: OMEP40CA41 PO (11:58)
[2017-06-30] MEDS ORDERED: LEVE500T PO (11:58)
[2017-06-30] MEDS ORDERED: ONDANSETRON INJ 2 MG/ML 2 ML VIAL ONE (12:05)
--- NOTE | 2017-06-30 12:09 | EMERGENCY ROOM VISIT NOTE ---
History Report prepared by Shahida: Camille Kolb Under the Supervision of: Dr. Von Abernathy M.D. First contact with patient: 11:58 Stated Complaint: STROKE SYMPTOMS History of Present Illness The patient is a 87 year old female who presents to the Emergency Room with complaints of possible stroke symptoms that started this morning. She was brought to the ED via EMS and is accompanied her son. Her son reports this morning she got up to use the bathroom at home with the assistance of her caregiver, but was weak when trying to stand up. She complained of feeling dizzy , so she laid back down. A little while later, she tried to use the bathroom again, and again became very dizzy, so EMS was called. The patient complains of nausea in the ED and has been vomiting.She also states "my stomach hurts". The patient has a history of a shunt for NPH and in April 2017 was transferred to [facility] for an ICH. Yesterday, on June 29, she was seen here in the ED and had a CT scan of the head that showed an 11 mm mixed subdural hematoma, which remains unchanged from an MRI performed on June 28. She denies any difficulty speaking or swallowing, headache, vision changes, recent fevers, chest pain, shortness of breath, diarrhea or urinary symptoms. She also complains of bilateral weakness in her legs, which is unchanged from her history of ICH in April. Source of History: patient, family (son) Onset: this morning Position: other (global) Timing: constant Associated Symptoms: + nausea, + vomiting, + abdominal pain, + weakness ( bilateral legs), No fevers, No headache, No chest pain, No SOB, No diarrhea, No urinary symptoms Review of Systems See HPI for pertinent positives & negatives. A total of 10 systems reviewed and were otherwise negative. Past Medical & Surgical Medical Problems: (1) Displaced fracture of right femoral neck (2) Infection of prosthetic hip joint Surgical Problems: (1) Spinal stenosis Old medical records were reviewed. Nurse's notes were reviewed and I agree with. Family History No significant family history Social History Smoking Status: Never Smoker Alcohol Use: none Drug Use: none Marital Status: Housing Status: lives with significant other Occupation Status: retired Current/Historical Medications Scheduled Amoxicillin (Amoxicillin), 2,000 MG PO UD Cephalexin Monohydrate (Keflex), 500 MG PO BID Cholecalciferol (Vitamin D), 4,000 UNIT PO DAILY Levetiractam (Levetiracetam), 500 MG PO BID Multiple Vitamins W/ Minerals (Preservision Areds 2), 1 TAB PO BID Omeprazole (Prilosec), 40 MG PO DAILY Zolpidem Tartrate (Zolpidem Tartrate Er), 6.25 MG PO HS Scheduled PRN Acetaminophen (Tylenol), 650 MG PO Q4 PRN for Pain Hydrocodone/Acetaminophen 5MG/325MG ([place] 5MG/325MG), 1-2 TABLET PO Q4 PRN for Pain Zolpidem Tartrate (Zolpidem Tartrate), 5 MG PO HS PRN for Sleep Allergies Coded Allergies: No Known Allergies (Unverified , 06/30/17) Physical Exam Vital Signs Date Time Temp Pulse Resp B/P (MAP) Pulse Ox O2 Delivery O2 Flow Rate FiO2 06/30/17 12:43 63 20 150/85 93 Room Air 06/30/17 12:23 65 06/30/17 12:14 36.7 70 20 162/79 93 Room Air Physical Exam General: Well developed, well nourished older female who is holding an emesis bag, but otherwise in no acute distress, breathing comfortably on room air. Normal speech HEENT: Normal cephalic atraumatic. Pupils are equal round and reactive to light. Extraocular movements are intact. Oropharynx is pink with moist mucous membranes. No swelling of the mouth lips or tongue. Neck: Supple with a midline trachea. No meningeal signs or stiffness, no JVD or bruits. No Stridor. Chest: Clear to auscultation bilaterally. No wheezes or rhonchi. No increased work of breathing. Heart: regular rate and rhythm. Abdomen: Soft nontender, nondistended without rebound guarding or rigidity. Extremities: No cyanosis clubbing or edema. No calf tenderness or assymetry Spine/Back. Non tender to palpation. No CVA tenderness Skin: Good turgor without rashes. Neurologic exam: Patient is awake, alert and oriented x 3. Mild bilateral weakness of legs. Cranial nerves two through 12 are intact. Motor and sensation are intact and symmetrical throughout. Medical Decision & Procedures ER Provider Diagnostic Interpretation: Radiology results as stated below per my review and radiologist interpretation: CT SCAN OF THE BRAIN WITHOUT IV CONTRAST CLINICAL HISTORY: Dizziness. COMPARISON STUDY: CT of the brain dated 06/29/2017. TECHNIQUE: Unenhanced axial CT scan of the brain is performed from the vertex to the skull base. A dose lowering technique was utilized adhering to the principles of ALARA. The patient was scanned twice due to motion artifact. CT DOSE: 1228.53 mGy.cm FINDINGS: Brain parenchyma: A right frontal approach ventriculostomy catheter is unchanged in position. The tip terminates in the frontal horn of the right lateral ventricle. There are age-related involutional changes noting moderate to advanced subcortical and periventricular microangiopathic change. 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 There is no parenchymal hemorrhage, mass effect, or evidence of acute territorial ischemia by CT criteria. Talavera-white matter is preserved. A mixed attenuation but predominantly low density subdural hematoma along the left convexity is unchanged from yesterday and measures up to 13 mm in maximum diameter. There is no significant associated mass effect. Ventricles, sulci, cisterns: Prominent secondary to involutional change. Intracranial vasculature: There is atherosclerotic calcification of the cavernous carotid and vertebral arteries. Calvarium: There is a right frontal june hole. Calvarium is otherwise normal as imaged. Sinuses and mastoids: The visualized paranasal sinuses are clear. The mastoid air cells are well pneumatized. Orbits: The bony orbits are grossly intact. There are bilateral ocular lens implants. IMPRESSION: 1. There is unchanged appearance of a mixed attenuation subdural hematoma along the left convexity as compared to yesterday. There is no significant associated mass effect. 2. There is no parenchymal hematoma, midline shift, or evidence of acute territorial ischemia by CT criteria noting a motion compromised examination. 3. A right frontal approach ventriculostomy catheter is unchanged in position. Ventricular caliber is stable. Electronically signed by: Mao Radford M.D. 06/30/2017 12:10 PM SINGLE VIEW CHEST CLINICAL HISTORY: Atypical chest pain. FINDINGS: An AP, portable, upright chest radiograph is compared to study dated 04/23/2017 and correlated with chest CT dated 11/05/2014. The examination is significantly degraded by portable technique and patient rotation. The heart is enlarged and there is atherosclerotic calcification with uncoiling of the thoracic aorta. Changes of chronic interstitial lung disease are similar to previous extensive subpleural reticulation as well as interstitial thickening and nodularity. There is no evidence of superimposed airspace consolidation. No large pleural effusion or pneumothorax is seen. The skeletal structures are osteopenic. The bony thorax is grossly intact. A ventriculostomy catheter traverses the right chest wall. IMPRESSION: Cardiomegaly with changes of chronic lung disease as above. No acute cardiopulmonary abnormality is seen. Electronically signed by: Mao Radford M.D. 06/30/2017 12:27 PM Laboratory Results 06/30/17 11:32 Red Blood Count 4.28, Mean Corpuscular Volume 90.7, Mean Corpuscular Hemoglobin 29.2, Mean Corpuscular Hemoglobin Concent 32.2, Mean Platelet Volume 9.7, Neutrophils (%) (Auto) 77.3, Lymphocytes (%) (Auto) 11.4, Monocytes (%) (Auto) 8.5, Eosinophils (%) (Auto) 2.4, Basophils (%) (Auto) 0.3, Neutrophils # (Auto) 6.71, Lymphocytes # (Auto) 0.99, Monocytes # (Auto) 0.74, Eosinophils # (Auto) 0.21, Basophils # (Auto) 0.03 06/30/17 11:32 Test 06/30/17 11:32 White Blood Count 8.69 K/uL (4.8-10.8) Red Blood Count 4.28 M/uL (4.2-5.4) Hemoglobin 12.5 g/dL (12.0-16.0) Hematocrit 38.8 % (37-47) Mean Corpuscular Volume 90.7 fL (80-100) Mean Corpuscular Hemoglobin 29.2 pg (25-34) Mean Corpuscular Hemoglobin Concent 32.2 g/dl (32-36) Platelet Count 357 K/uL (130-400) Mean Platelet Volume 9.7 fL (7.4-10.4) Neutrophils (%) (Auto) 77.3 % Lymphocytes (%) (Auto) 11.4 % Monocytes (%) (Auto) 8.5 % Eosinophils (%) (Auto) 2.4 % Basophils (%) (Auto) 0.3 % Neutrophils # (Auto) 6.71 K/uL (1.4-6.5) Lymphocytes # (Auto) 0.99 K/uL (1.2-3.4) Monocytes # (Auto) 0.74 K/uL (0.11-0.59) Eosinophils # (Auto) 0.21 K/uL (0-0.5) Basophils # (Auto) 0.03 K/uL (0-0.2) RDW Standard Deviation 49.3 fL (36.4-46.3) RDW Coefficient of Variation 14.9 % (11.5-14.5) Immature Granulocyte % (Auto) 0.1 % Immature Granulocyte # (Auto) 0.01 K/uL (0.00-0.02) Prothrombin Time 11.6 SECONDS (9.0-12.0) Prothromb Time International Ratio 1.1 (0.9-1.1) Activated Partial Thromboplast Time 27.3 SECONDS (21.0-31.0) Partial Thromboplastin Ratio 1.1 Anion Gap 8.0 mmol/L (3-11) Est Creatinine Clear Calc Drug Dose 60.1 ml/min Estimated GFR () 96.6 Estimated GFR (Non- 83.4 BUN/Creatinine Ratio 35.1 (10-20) Calcium Level 9.4 mg/dl (8.5-10.1) Total Bilirubin 0.4 mg/dl (0.2-1) Direct Bilirubin < 0.1 mg/dl (0-0.2) Aspartate Amino Transf (AST/SGOT) 15 U/L (15-37) Alanine Aminotransferase (ALT/SGPT) 17 U/L (12-78) Alkaline Phosphatase 29 U/L (45-117) Total Protein 7.1 gm/dl (6.4-8.2) Albumin 3.5 gm/dl (3.4-5.0) Lipase 81 U/L (73-393) Laboratory studies as stated above per my review. Medications Administered Medications (Trade) Dose Ordered Sig/Kaitlin Route Start Time Stop Time Status Last Admin Dose Admin Ondansetron HCl (Zofran Inj) 4 mg STK-MED ONCE .ROUTE 06/30/17 12:05 06/30/17 12:06 DC 06/30/17 12:27 4 MG Sodium Chloride 250 ml @ 999 mls/hr Q16M STAT IV 06/30/17 12:11 06/30/17 12:26 DC 06/30/17 12:27 999 MLS/HR ECG Indication: weakness Rate (beats per minute): 68 Rhythm: normal sinus Findings: no acute ischemic change, other (old inferior infarct) Change: no significant change (No change from EKG on 04/23/2017) Change: EKG was interpreted by me. ED Course 1204: Past medical records reviewed. The patient was evaluated in room B1, and a complete history and physical examination were performed. 1205: Zofran 4 mg IV. 1211: NSS 250 ml @ 999 mls/hr IV. 1216: I spoke with the patients family and updated them on her results so far. I discussed my recommendation she be further evaluated at an acute care facility and they are agreeable with transferring the patient to [facility] in [place]. 1231: I discussed the patients case with Dr. Schwartz, [facility] Neurosurgery. He has accepted the patient as a transfer to the ED of [facility]. 1240: I discussed the patients case with Dr. Morse, [facility] Emergency Department. The patient has been accepted as a transfer to the [facility] ED. 1243: I reevaluated the patient. She is resting comfortably. I discussed my conversations with Dr. Schwartz and Dr. Morse at [facility] and the patient and her family verbalized complete understanding and agreement. Both the son and the patient informed me the patient is a DNR. 1301: I reevaluated the patient. She is resting comfortably. Her is now in the room and I updated him on the patients condition. Our charge nurse states they are waiting on an ambulance for transfer. Medical Decision The differential diagnoses considered include subdural hematoma, ICH, CVA, vertigo, infection, electrolyte or metabolic abnormality. This patient comes in as described above. She was placed in room B1. She wants rates a CAT scan after having strokelike symptoms from the ambulance. I have reviewed her records. She has a subdural with mixed components. She's been dizzy today. She has a history of injury or ankle hemorrhage. she is not on any blood thinners. Her main symptoms or dizziness. she has some chronic weakness in her legs. She's had no recent fall. She is not a TPA candidate and I do not think is likely acute thrombotic event. Her CAT scan is unchanged compared to yesterday however given the mixed components of likely acute and chronic blood, I do think she needs neurosurgical evaluation. The rest of her workup was unremarkable she was nauseated and dizzy initially was given gentle IV hydration as well as Zofran 4 mg IV and felt better. I talked to the patient as well as her and son at length they agree. I have called and talked to the [facility] and talked to Dr. Benitez, the neurosurgeon there, and he has recommended we send her to the ER in [place]. I talked to the ER physician as well. She'll be sent by [facility] ambulance for neurosurgical evaluation and [place]. At this point there is no midline shift. She will be transported by ambulance. Medication Reconcilliation Current Medication List: was personally reviewed by me Blood Pressure Screening Patient's blood pressure: Elevated blood pressure Blood pressure disposition: Elevated BP felt to be situational Consults Time Called: 1225 Consulting Physician: Dr. Schwartz, [facility] Neurosurgery Returned Call: 1231 I discussed the patients case with Dr. Schwartz, [facility] Neurosurgery. He has accepted the patient as a transfer to the ED of [facility]. Additional Consults: Time Called: 1235 Consulted Physician: Dr. Morse, [facility] ED Returned Call: 1240 Additional Comments: I discussed the patients case with Dr. Morse, [facility] Emergency Department. The patient has been accepted as a transfer to the [facility] ED. Impression Primary Impression: Subdural hematoma Scribe Attestation The scribe's documentation has been prepared under my direction and personally reviewed by me in its entirety. I confirm that the note above accurately reflects all work, treatment, procedures, and medical decision making performed by me. Departure Information Dispostion Transfer Acute Care Facility (The patient has been accepted as a transfer to [facility] in [place]) Referrals Sera Figueredo C.R.N.P. (PCP)
[2017-06-30] MEDS ORDERED: SODIUM CHLORIDE 0.9% 1000ML 250 ML IV STA (12:11)
--- NOTE | 2017-06-30 12:12 | DIAGNOSTIC IMAGING REPORT ---
CT SCAN OF THE BRAIN WITHOUT IV CONTRAST CLINICAL HISTORY: Dizziness. COMPARISON STUDY: CT of the brain dated 06/29/2017. TECHNIQUE: Unenhanced axial CT scan of the brain is performed from the vertex to the skull base. A dose lowering technique was utilized adhering to the principles of ALARA. The patient was scanned twice due to motion artifact. CT DOSE: 1228.53 mGy.cm FINDINGS: Brain parenchyma: A right frontal approach ventriculostomy catheter is unchanged in position. The tip terminates in the frontal horn of the right lateral ventricle. There are age-related involutional changes noting moderate to advanced subcortical and periventricular microangiopathic change. 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 There is no parenchymal hemorrhage, mass effect, or evidence of acute territorial ischemia by CT criteria. Talavera-white matter is preserved. A mixed attenuation but predominantly low density subdural hematoma along the left convexity is unchanged from yesterday and measures up to 13 mm in maximum diameter. There is no significant associated mass effect. Ventricles, sulci, cisterns: Prominent secondary to involutional change. Intracranial vasculature: There is atherosclerotic calcification of the cavernous carotid and vertebral arteries. Calvarium: There is a right frontal ujne hole. Calvarium is otherwise normal as imaged. Sinuses and mastoids: The visualized paranasal sinuses are clear. The mastoid air cells are well pneumatized. Orbits: The bony orbits are grossly intact. There are bilateral ocular lens implants. IMPRESSION: 1. There is unchanged appearance of a mixed attenuation subdural hematoma along the left convexity as compared to yesterday. There is no significant associated mass effect. 2. There is no parenchymal hematoma, midline shift, or evidence of acute territorial ischemia by CT criteria noting a motion compromised examination. 3. A right frontal approach ventriculostomy catheter is unchanged in position. Ventricular caliber is stable. Electronically signed by: Mao Radford M.D. 06/30/2017 12:10 PM Dictated Date/Time: 06/30/2017 12:05 PM
[2017-06-30 12:14] VITALS: TEMP 36.7; Ht 162.6 cm; Wt 59.0 kg
--- NOTE | 2017-06-30 12:28 | DIAGNOSTIC IMAGING REPORT ---
SINGLE VIEW CHEST CLINICAL HISTORY: Atypical chest pain. FINDINGS: An AP, portable, upright chest radiograph is compared to study dated 04/23/2017 and correlated with chest CT dated 11/05/2014. The examination is significantly degraded by portable technique and patient rotation. The heart is enlarged and there is atherosclerotic calcification with uncoiling of the thoracic aorta. Changes of chronic interstitial lung disease are similar to previous extensive subpleural reticulation as well as interstitial thickening and nodularity. There is no evidence of superimposed airspace consolidation. No large pleural effusion or pneumothorax is seen. The skeletal structures are osteopenic. The bony thorax is grossly intact. A ventriculostomy catheter traverses the right chest wall. IMPRESSION: Cardiomegaly with changes of chronic lung disease as above. No acute cardiopulmonary abnormality is seen. Electronically signed by: Mao Radford M.D. 06/30/2017 12:27 PM Dictated Date/Time: 06/30/2017 12:25 PM
[2017-06-30 12:48] LABS: BASO % 0.3 %; BASO ABS # 0.03 K/uL (0-0.2); EOS % 2.4 %; EOS ABS # 0.21 K/uL (0-0.5); HEMATOCRIT 38.8 % (37-47); HEMOGLOBIN 12.5 g/dL (12.0-16.0); IG# 0.01 K/uL (0.00-0.02); LYMPH % 11.4 %; LYMPH ABS # 0.99 K/uL (1.2-3.4); MEAN CELL VOLUME 90.7 fL (80-100); MEAN CORPUSCULAR HEMOGLOBIN 29.2 pg (25-34); MEAN CORPUSCULAR HGB CONC 32.2 g/dl (32-36); MEAN PLATELET VOLUME 9.7 fL (7.4-10.4); MONO % 8.5 %; MONO ABS # 0.74 K/uL (0.11-0.59); NEUT % 77.3 %; NEUT ABS # 6.71 K/uL (1.4-6.5); PLATELET COUNT 357 K/uL (130-400); RED CELL DISTRIBUTION WIDTH CV 14.9 % (11.5-14.5); RED CELL DISTRIBUTION WIDTH SD 49.3 fL (36.4-46.3); WHITE BLOOD COUNT 8.69 K/uL (4.8-10.8)
[2017-06-30 13:01] LABS: INR 1.1 (0.9-1.1); PTT PATIENT 27.3 SECONDS (21.0-31.0)
[2017-06-30 13:07] LABS: ALBUMIN 3.5 gm/dl (3.4-5.0); ALT/SGPT 17 U/L (12-78); BLOOD UREA NITROGEN 20 mg/dl (7-18); CALCIUM 9.4 mg/dl (8.5-10.1); CARBON DIOXIDE 29 mmol/L (21-32); CREATININE 0.57 mg/dl (0.60-1.20); GLUCOSE 92 mg/dl (70-99); LIPASE 81 U/L (73-393); POTASSIUM 4.4 mmol/L (3.5-5.1); SODIUM 140 mmol/L (136-145)
[2017-06-30 13:10] LABS: ALKALINE PHOSPHATASE 29 U/L (45-117); AST/SGOT 15 U/L (15-37); TOTAL PROTEIN 7.1 gm/dl (6.4-8.2)
[2017-06-30 13:55] VITALS: BP 139/75; PULSE 66; O2SAT 95
== END 2017-06-30 13:57 | disposition short-term general hospital (02) ==
LOC: EDBD 11:52 → C.EDB 11:55
DX: S06.5X0A Traumatic subdural hemorrhage without loss of consciousness, initial encounter (principal); X58.XXXA Exposure to other specified factors, initial encounter

== ENCOUNTER 2017-09-15 10:45 | Emergency (ER) | payer OTHER ==
[~2017-09-15] VITALS: Ht 172.7 cm; Wt 56.8 kg
[~2017-09-15 10:45] MED LIST changes: +CEPH500C2 PO; -EFF75 PO; +LEVE500T PO; +OMEP40CA41 PO; -RANI150T3 PO
[2017-09-15 10:51] VITALS: TEMP 36.4; Ht 172.7 cm; Wt 56.8 kg
[2017-09-15] MEDS ORDERED: SODIUM CHLORIDE 0.9% 1000ML 1,000 ML IV STA (10:57)
[2017-09-15] MEDS ORDERED: SODIUM CHLORIDE 0.9% 500ML 500 ML IV STA (11:13)
[2017-09-15 11:16] LABS: BASO % 0.2 %; BASO ABS # 0.01 K/uL (0-0.2); EOS % 1.4 %; EOS ABS # 0.09 K/uL (0-0.5); HEMOGLOBIN 13.4 g/dL (12.0-16.0); IG# 0.01 K/uL (0.00-0.02); LYMPH % 20.4 %; LYMPH ABS # 1.27 K/uL (1.2-3.4); MEAN CELL VOLUME 88.7 fL (80-100); MEAN CORPUSCULAR HGB CONC 32.7 g/dl (32-36); MEAN PLATELET VOLUME 9.7 fL (7.4-10.4); NEUT % 69.8 %; NEUT ABS # 4.34 K/uL (1.4-6.5); PLATELET COUNT 348 K/uL (130-400); RED CELL DISTRIBUTION WIDTH CV 13.5 % (11.5-14.5); RED CELL DISTRIBUTION WIDTH SD 43.9 fL (36.4-46.3); WHITE BLOOD COUNT 6.22 K/uL (4.8-10.8)
[2017-09-15 11:32] LABS: ALBUMIN 3.4 gm/dl (3.4-5.0); ALT/SGPT 14 U/L (12-78); BLOOD UREA NITROGEN 11 mg/dl (7-18); CALCIUM 8.9 mg/dl (8.5-10.1); CARBON DIOXIDE 29 mmol/L (21-32); CREATININE 0.55 mg/dl (0.60-1.20); GLUCOSE 86 mg/dl (70-99); LIPASE 60 U/L (73-393); POTASSIUM 3.6 mmol/L (3.5-5.1); SODIUM 140 mmol/L (136-145)
[2017-09-15 11:35] LABS: ALKALINE PHOSPHATASE 35 U/L (45-117); AST/SGOT 13 U/L (15-37); TOTAL PROTEIN 7.2 gm/dl (6.4-8.2)
[2017-09-15] MEDS ORDERED: CYM30 PO (11:36)
--- NOTE | 2017-09-15 12:02 | DIAGNOSTIC IMAGING REPORT ---
ABD/PELVIS NO IV OR ORAL CONT CLINICAL HISTORY: 87 years-old Female presenting with diarrhea, abdominal pain. TECHNIQUE: Multidetector CT of the abdomen and pelvis was performed without the use of intravenous contrast. IV contrast: None. A dose lowering technique was used consistent with the principles of ALARA (as low as reasonably achievable). COMPARISON: CT pelvis from 11/23/2015. CT DOSE (mGy.cm): The estimated cumulative dose is 522.06 mGy.cm. FINDINGS: It Analyst topogram: Kyphoplasty changes. Total hip prothesis. Lung bases: Extensive peripheral reticulation and nodularity in both lungs affecting both dependent and nondependent portions of the lung. Bronchiectasis and subsegmental bronchial debris also evident. Interlobular septal thickening, which may be nodular (series 3 image 40). Minimal aortic valve and mitral annular calcification. Normal heart size. The heart is deformed secondary to the pectus excavatum deformity. No pericardial or pleural effusion. Liver: Normal morphology. Normal density. Biliary: No gross biliary ductal dilatation allowing for noncontrast technique. Normal gallbladder. Pancreas: Mild parenchymal atrophy. Spleen: Normal noncontrast appearance. Adrenal glands: Normal noncontrast appearance. Kidneys and ureters: Normal noncontrast appearance. No nephrolithiasis. Bilateral extrarenal pelvises. Mild prominence of the proximal ureters. No convincing evidence of hydronephrosis. Ureters poorly visualized. Bladder: Poorly evaluated secondary to extensive streak artifact. Pelvic organs: Poorly evaluated secondary to extensive streak artifact. Bowel: Fluid in the colon suggests a diarrheal state. Pelvic bowel is poorly evaluated secondary to extensive streak artifact. No bowel obstruction. Peritoneal cavity: No free fluid or intraperitoneal gas. 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 Lymph nodes: No gross lymphadenopathy allowing for noncontrast technique. Vasculature: Atherosclerosis of the normal caliber abdominal aorta. Abdominal wall: Normal. Musculoskeletal: Degenerative changes of the spine. Postprocedural changes of kyphoplasty. Osteopenia. Compression deformities of L1, L2, and L4. Total right hip prosthesis with resulting extensive streak artifact in the pelvis. IMPRESSION: 1. Limited evaluation secondary to noncontrast technique and extensive streak artifact in the pelvis arising from the total right hip arthroplasty. 2. Fluid in the colon suggests a diarrheal state. No bowel obstruction. No free air. 3. 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 The pattern is nonspecific. 4. Osteopenia with old multilevel compression deformities. Electronically signed by: Antonio Winston M.D. 09/15/2017 12:01 PM Dictated Date/Time: 09/15/2017 11:49 AM
[2017-09-15] MEDS ORDERED: DIPH-416 PO (13:04)
[2017-09-15 14:08] VITALS: BP 164/85; PULSE 69; O2SAT 95
--- NOTE | 2017-09-15 15:39 | EMERGENCY ROOM VISIT NOTE ---
History Report prepared by Shahida: Camille Kolb Under the Supervision of: Dr. John Carmona M.D. First contact with patient: 10:57 Chief Complaint: DIARRHEA Stated Complaint: DIARRHEA Nursing Triage Summary: pt arrived bls from home reports diarehea for three weeks has been drinking gatoraid denies antibiotic use or pain at this time History of Present Illness The patient is a 87 year old female who presents to the Emergency Room with complaints of persistent diarrhea for the past 3 weeks. She is accompanied by her son. She was brought to the ED via EMS. She thinks she has been going 2 to 3 times a day. She states she has been drinking Gatorade and taking Pepto Bismol and Imodium with little relief. She experiences intermittent abdominal cramping during the bowel movements. There has been no blood in her stool. Her is currently experiencing similar symptoms as well. She admits she did take an antibiotic for UTI symptoms last month. The patient states she called her nurse practitioner, Leena Figueredo, who recommended she come to the ED for evaluation. She has previously had stool studies done which have shown no parasites and no sign of C-Diff. Pt denies LOC, headache, fevers, chills, diaphoresis, visual changes, neck pain, chest pain, breathing difficulties, nausea, vomiting, back pain, melena, hematochezia, urinary symptoms, numbness, weakness, lymphadenopathy, rash, or other complaints. 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 A total of ten systems were reviewed and were otherwise negative. Past Medical & Surgical Medical Problems: (1) Displaced fracture of right femoral neck (2) Infection of prosthetic hip joint Surgical Problems: (1) Spinal stenosis Family History No significant family history Social History Smoking Status: Never Smoker Alcohol Use: none Drug Use: none Marital Status: Housing Status: lives with significant other Occupation Status: retired Current/Historical Medications Scheduled Amoxicillin (Amoxicillin), 2,000 MG PO UD Duloxetine HCl (Duloxetine HCl), 30 MG PO HS Multiple Vitamins W/ Minerals (Preservision Areds 2), 1 TAB PO BID Omeprazole (Prilosec), 40 MG PO QAM Scheduled PRN Diphenoxylate/Atropine (Lomotil), 1 TAB PO QID PRN for Diarrhea Hydrocodone/Acetaminophen 5MG/325MG ([place] 5MG/325MG), 1-2 TABLET PO Q4 PRN for Pain Zolpidem Tartrate (Zolpidem Tartrate), 5 MG PO HS PRN for Sleep Allergies Coded Allergies: No Known Allergies (Unverified , 09/15/17) Physical Exam Vital Signs Date Time Temp Pulse Resp B/P (MAP) Pulse Ox O2 Delivery O2 Flow Rate FiO2 09/15/17 14:08 69 18 164/85 95 09/15/17 13:25 64 20 198/87 97 Room Air 09/15/17 10:51 36.4 64 16 167/88 96 Room Air Physical Exam GENERAL: Awake, alert, well-appearing, in no distress HENT: Normocephalic, atraumatic. Oropharynx unremarkable. EYES: Normal conjunctiva. Sclera non-icteric. NECK: Supple. No nuchal rigidity. FROM. No masses. RESPIRATORY: Clear to auscultation. No wheezes. No rales. Normal respiratory effort. CARDIAC: Normal rate. Normal rhythm. No murmurs. No rubs. Extremities warm and well perfused. Pulses equal. No JVD. GI: Soft, non-distended. No tenderness to palpation. No rebound or guarding. No masses. RECTAL: Deferred. MUSCULOSKELETAL: Atraumatic. Chest examination reveals no tenderness. The back is symmetrical on inspection without obvious abnormality. There is no CVA tenderness to palpation. No joint edema. LOWER EXTREMITIES: Calves are equal size bilaterally and non-tender. No edema. No discoloration. NEURO: Normal sensorium. No sensory or motor deficits noted. SKIN: No rash or jaundice noted. Medical Decision & Procedures ER Provider Diagnostic Interpretation: Radiology results as stated below per my review and radiologist interpretation: ABD/PELVIS NO IV OR ORAL CONT CLINICAL HISTORY: 87 years-old Female presenting with diarrhea, abdominal pain. TECHNIQUE: Multidetector CT of the abdomen and pelvis was performed without the use of intravenous contrast. IV contrast: None. A dose lowering technique was used consistent with the principles of ALARA (as low as reasonably achievable). COMPARISON: CT pelvis from 11/23/2015. CT DOSE (mGy.cm): The estimated cumulative dose is 522.06 mGy.cm. FINDINGS: Senior Systems Analyst topogram: Kyphoplasty changes. Total hip prothesis. Lung bases: Extensive peripheral reticulation and nodularity in both lungs affecting both dependent and nondependent portions of the lung. Bronchiectasis and subsegmental bronchial debris also evident. Interlobular septal thickening, which may be nodular (series 3 image 40). Minimal aortic valve and mitral annular calcification. Normal heart size. The heart is deformed secondary to the pectus excavatum deformity. No pericardial or pleural effusion. Liver: Normal morphology. Normal density. Biliary: No gross biliary ductal dilatation allowing for noncontrast technique. Normal gallbladder. Pancreas: Mild parenchymal atrophy. Spleen: Normal noncontrast appearance. Adrenal glands: Normal noncontrast appearance. Kidneys and ureters: Normal noncontrast appearance. No nephrolithiasis. Bilateral extrarenal pelvises. Mild prominence of the proximal ureters. No convincing evidence of hydronephrosis. Ureters poorly visualized. Bladder: Poorly evaluated secondary to extensive streak artifact. Pelvic organs: Poorly evaluated secondary to extensive streak artifact. Bowel: Fluid in the colon suggests a diarrheal state. Pelvic bowel is poorly evaluated secondary to extensive streak artifact. No bowel obstruction. Peritoneal cavity: No free fluid or intraperitoneal gas. 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 Lymph nodes: No gross lymphadenopathy allowing for noncontrast technique. Vasculature: Atherosclerosis of the normal caliber abdominal aorta. Abdominal wall: Normal. Musculoskeletal: Degenerative changes of the spine. Postprocedural changes of kyphoplasty. Osteopenia. Compression deformities of L1, L2, and L4. Total right hip prosthesis with resulting extensive streak artifact in the pelvis. IMPRESSION: 1. Limited evaluation secondary to noncontrast technique and extensive streak artifact in the pelvis arising from the total right hip arthroplasty. 2. Fluid in the colon suggests a diarrheal state. No bowel obstruction. No free air. 3. 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 The pattern is nonspecific. 4. Osteopenia with old multilevel compression deformities. Electronically signed by: Antonio Winston M.D. 09/15/2017 12:01 PM Laboratory Results 09/15/17 11:03 Red Blood Count 4.62, Mean Corpuscular Volume 88.7, Mean Corpuscular Hemoglobin 29.0, Mean Corpuscular Hemoglobin Concent 32.7, Mean Platelet Volume 9.7, Neutrophils (%) (Auto) 69.8, Lymphocytes (%) (Auto) 20.4, Monocytes (%) (Auto) 8.0, Eosinophils (%) (Auto) 1.4, Basophils (%) (Auto) 0.2, Neutrophils # (Auto) 4.34, Lymphocytes # (Auto) 1.27, Monocytes # (Auto) 0.50, Eosinophils # (Auto) 0.09, Basophils # (Auto) 0.01 09/15/17 11:03 Test 09/15/17 11:03 09/15/17 13:20 White Blood Count 6.22 K/uL (4.8-10.8) Red Blood Count 4.62 M/uL (4.2-5.4) Hemoglobin 13.4 g/dL (12.0-16.0) Hematocrit 41.0 % (37-47) Mean Corpuscular Volume 88.7 fL (80-100) Mean Corpuscular Hemoglobin 29.0 pg (25-34) Mean Corpuscular Hemoglobin Concent 32.7 g/dl (32-36) Platelet Count 348 K/uL (130-400) Mean Platelet Volume 9.7 fL (7.4-10.4) Neutrophils (%) (Auto) 69.8 % Lymphocytes (%) (Auto) 20.4 % Monocytes (%) (Auto) 8.0 % Eosinophils (%) (Auto) 1.4 % Basophils (%) (Auto) 0.2 % Neutrophils # (Auto) 4.34 K/uL (1.4-6.5) Lymphocytes # (Auto) 1.27 K/uL (1.2-3.4) Monocytes # (Auto) 0.50 K/uL (0.11-0.59) Eosinophils # (Auto) 0.09 K/uL (0-0.5) Basophils # (Auto) 0.01 K/uL (0-0.2) RDW Standard Deviation 43.9 fL (36.4-46.3) RDW Coefficient of Variation 13.5 % (11.5-14.5) Immature Granulocyte % (Auto) 0.2 % Immature Granulocyte # (Auto) 0.01 K/uL (0.00-0.02) Anion Gap 6.0 mmol/L (3-11) Est Creatinine Clear Calc Drug Dose 64.6 ml/min Estimated GFR () 97.7 Estimated GFR (Non- 84.3 BUN/Creatinine Ratio 19.7 (10-20) Calcium Level 8.9 mg/dl (8.5-10.1) Total Bilirubin 0.4 mg/dl (0.2-1) Direct Bilirubin < 0.1 mg/dl (0-0.2) Aspartate Amino Transf (AST/SGOT) 13 U/L (15-37) Alanine Aminotransferase (ALT/SGPT) 14 U/L (12-78) Alkaline Phosphatase 35 U/L (45-117) Total Protein 7.2 gm/dl (6.4-8.2) Albumin 3.4 gm/dl (3.4-5.0) Lipase 60 U/L (73-393) Urine Color YELLOW Urine Appearance CLOUDY (CLEAR) Urine pH 7.5 (4.5-7.5) Urine Specific Dickens 1.014 (1.000-1.030) Urine Protein NEG (NEG) Urine Glucose (UA) NEG (NEG) Urine Ketones NEG (NEG) Urine Occult Blood NEG (NEG) Urine Nitrite NEG (NEG) Urine Bilirubin NEG (NEG) Urine Urobilinogen NEG (NEG) Urine Leukocyte Esterase NEG (NEG) Urine WBC (Auto) 1-5 /hpf (0-5) Urine RBC (Auto) 0-4 /hpf (0-4) Urine Hyaline Casts (Auto) 1-5 /lpf (0-5) Urine Epithelial Cells (Auto) >30 /lpf (0-5) Urine Bacteria (Auto) NEG (NEG) Laboratory results reviewed by me Medications Administered Medications (Trade) Dose Ordered Sig/Kaitlin Route Start Time Stop Time Status Last Admin Dose Admin Sodium Chloride 1,000 ml @ 125 mls/hr Q8H STAT IV 09/15/17 10:57 09/15/17 14:33 DC 09/15/17 11:06 125 MLS/HR Sodium Chloride 500 ml @ 999 mls/hr Q31M STAT IV 09/15/17 11:13 09/15/17 11:43 DC 09/15/17 11:23 999 MLS/HR ED Course 1057: NSS 1000 ml @ 125 mls/hr IV. 1111: The patient was evaluated in room C8. A complete history and physical exam was performed. 1113: NSS 500 ml @ 999 mls/hr IV. 1245: I have asked case management to obtain outpatient records on the patient. 1300: Upon review, previous stool studies are negative for parasites and stool studies. 1305: I reevaluated the patient. She is feeling better and is ready to go home. I discussed her results and discharge instructions and she verbalized complete understanding and agreement. Medical Decision Prior records/ancillary studies reviewed. Outpatient stool studies were negative for bacterial infection. Family states that over and parasite screen was negative. This is not immediately available. C. difficile testing was negative. stool testing was also performed and was negative per family. Triage Nursing notes reviewed and agree them. Additional history obtained from the family. The patient's history was concerning for diarrhea. Differential diagnosis: Etiologies such as infectious, inflammatory, parasitic, gastroenteritis, food borne illness, infections, appendicitis, diverticulitis, inflammatory bowel disease, GI bleed, biliary pathology, as well as others were entertained. Physical examination findings: As above. Benign abdomen. Clinically looks well. ER treatment provided: IV hydration with normal saline On reassessment the patient felt well. Diagnostics interpretation by me: The labs revealed an unremarkable CBC and chemistry panel. Urinalysis negative. No signs of significant dehydration or electrolyte abnormality. Repeat stool studies not performed. Imaging studies: CT scan as above. The patient does not have any evidence of emergent pathology currently. She has had 3 weeks of diarrhea. I did discuss a trial of a small amount of Lomotil. GI referral may be necessary and this was discussed with patient and her caregiver. They will contact her primary provider on Sunday for assistance and further management. If she worsens in any way she will be back to the emergency department. By the evaluation outlined above emergent etiologies such as appendicitis, diverticulitis, mesenteric ischemia, aortic pathology, inflammatory bowel disease, renal colic, PUD, biliary pathology, UTI, as well as others were deemed relatively unlikely. The patient was informed about the findings as listed above. All questions were answered and she will pleased with the treatment. Return instructions were outlined and the patient was discharged in stable condition. Outpatient prescription management: Lomotil Referral: The patient was referred to her primary care physician for follow-up in 2 days for a recheck of the current condition. Medication Reconcilliation Current Medication List: was personally reviewed by me Blood Pressure Screening Patient's blood pressure: Elevated blood pressure Blood pressure disposition: Referred to PCP Impression Primary Impression: Diarrhea Scribe Attestation The scribe's documentation has been prepared under my direction and personally reviewed by me in its entirety. I confirm that the note above accurately reflects all work, treatment, procedures, and medical decision making performed by me. Departure Information Dispostion Home / Self-Care Prescriptions Diphenoxylate/Atropine (Lomotil) Tab 1 TAB PO QID Y for Diarrhea, #10 TAB Prov: John Carmona MD 09/15/17 Referrals Sera Figueredo, C.R.N.P. (PCP) Patient Instructions [facility] Additional Instructions Lomotil: 1 dose 4 times daily only as needed for diarrhea. Follow-up with your primary clinic Sunday. Rest and drink plenty of fluids. Avoid dairy products until diarrhea resolves. Return to the ER for worsening abdominal pain, vomiting, fevers, bloody stools, or as needed.
== END 2017-09-15 14:10 | disposition home or self-care (01) ==
LOC: EDBD 10:45 → C.EDC 10:45
DX: R19.7 Diarrhea, unspecified (principal); Z96.649 Presence of unspecified artificial hip joint

== ENCOUNTER 2017-09-25 12:51 | Emergency (ER) | payer OTHER ==
[~2017-09-25] VITALS: Ht 162.6 cm; Wt 66.2 kg
[~2017-09-25 12:51] MED LIST changes: -ACET-1311 PO; -CEPH500C2 PO; -CHOL200010 PO; +CYM30 PO; +DIPH-416 PO; -LEVE500T PO; -ZOLP6.2529 PO
[2017-09-25] MEDS ORDERED: SODIUM CHLORIDE 0.9% 1000ML 1,000 ML IV STA (13:00)
[2017-09-25] MEDS ORDERED: LORAZEPAM 2 MG/ML 1 ML VIAL IV STA ×2 (13:08→13:47)
--- NOTE | 2017-09-25 13:13 | DIAGNOSTIC IMAGING REPORT ---
HEAD WITHOUT CONTRAST (CT) CT DOSE: 1377.16 mGycm HISTORY: Mental status change. Seizure. AMS TECHNIQUE: Multiaxial CT images of the head were performed without the use of intravenous contrast. A dose lowering technique was utilized adhering to the principles of ALARA. Comparison: 06/30/2017 Findings: The paranasal sinuses and mastoid air cells are clear. Right frontal ventricular ventriculostomy catheter is again noted. It is unchanged in location with tip in the right lateral ventricle. There are findings of moderate chronic small vessel change throughout both cerebral hemispheres. The left-sided subdural hematoma prior study has resolved. There are findings of mild increase in ventricular prominence. Maximum transaxial dimension is 5.1 cm increased from 3.97 cm. The findings of mild cortical effacement as well as a component of atrophy appears similar. Impression: 1. Mild increase in ventricular distention with maximum transaxial ventricular dimensions currently 5.1 cm increased from the prior study of 3.97 cm 2. Stable findings of atrophy, chronic small vessel change, 3. Right ventriculostomy catheter unchanged in position. 4. Interval resolution of the left apical subdural hematoma on the prior exam. The above report was generated using voice recognition software. It may contain grammatical, syntax or spelling errors. Electronically signed by: Christian Bonilla M.D. 09/25/2017 1:11 PM Dictated Date/Time: 09/25/2017 1:06 PM
[2017-09-25] MEDS ORDERED: LEVETIRACETAM IV 1,000 MG in DEXTROSE 5% 100ML 100 ML IV ONE (13:15)
--- NOTE | 2017-09-25 13:19 | EMERGENCY ROOM VISIT NOTE ---
History Report prepared by Shahida: Ottoniel De Santiago Under the Supervision of: Dr. Svitlana Cardoso M.D. First contact with patient: 12:54 Stated Complaint: SEIZURE History of Present Illness The patient is an 87 year old female who presents to the Emergency Room via EMS for continuing stroke-like symptoms and seizure activity that began at 12:10 today, 48 minutes ago. The patient resides at home with the help of a Home Health Nurse who states that she was at her baseline just before 1210 when her symptoms began. The turret lathe machinist states that she started having spasms in her left arm which then went to her left eyelid. She then developed a left-sided facial droop. These symptoms are very similar to what she experienced before when she was found to have a subarachnoid hemorrhage. The patient received 1 mg of Ativan IV via EMS, which they state resolved the focal motor seizures. Upon arrival to the ED the patient is complaining of left shoulder and back pain, as well as shortness of breath. She denies any headache. The patient has a history of a CORRECTION OFFICER REFORMATORY shunt and normal pressure hydrocephalus. Source of History: patient, caregiver (home health nurse), EMS Onset: 48 minutes ago Position: other (Upper extremity focal motor seizure activity) Quality: other (Stroke-like symptoms, focal motor seizure activity) Timing: other (continuing) Associated Symptoms: + SOB, + back pain, No headache Review of Systems See HPI for pertinent positives & negatives. A total of 10 systems reviewed and were otherwise negative. Past Medical & Surgical Medical Problems: (1) Displaced fracture of right femoral neck (2) Infection of prosthetic hip joint Surgical Problems: (1) Spinal stenosis Family History No significant family history Social History Smoking Status: Never Smoker Alcohol Use: none Drug Use: none Marital Status: Housing Status: lives with significant other Occupation Status: retired Current/Historical Medications Scheduled Amoxicillin (Amoxicillin), 2,000 MG PO UD Duloxetine HCl (Duloxetine HCl), 30 MG PO HS Multiple Vitamins W/ Minerals (Preservision Areds 2), 1 TAB PO BID Omeprazole (Prilosec), 40 MG PO QAM Ropinirole HCl (Ropinirole HCl), 0.25 MG PO DAILY Scheduled PRN Diphenoxylate/Atropine (Lomotil), 1 TAB PO QID PRN for Diarrhea Hydrocodone/Acetaminophen 5MG/325MG ([place] 5MG/325MG), 1-2 TABLET PO Q4 PRN for Pain Zolpidem Tartrate (Zolpidem Tartrate), 5 MG PO HS PRN for Sleep Allergies Coded Allergies: No Known Allergies (Unverified , 09/15/17) Physical Exam Vital Signs Date Time Temp Pulse Resp B/P (MAP) Pulse Ox O2 Delivery O2 Flow Rate FiO2 09/25/17 17:13 59 18 132/54 100 Nasal Cannula 2.0 09/25/17 16:52 57 18 132/55 100 Nasal Cannula 2.0 09/25/17 16:24 75 18 127/57 100 Nasal Cannula 2.0 09/25/17 15:47 58 18 114/53 100 Nasal Cannula 2.0 09/25/17 15:23 61 18 122/59 100 Nasal Cannula 2.0 09/25/17 14:59 87 20 137/65 99 Nasal Cannula 2.0 09/25/17 14:06 69 31 99 Nasal Cannula 09/25/17 14:02 70 09/25/17 14:01 133/82 09/25/17 13:53 136/93 09/25/17 13:51 96 25 95 Nasal Cannula 09/25/17 13:46 119/85 09/25/17 13:40 152/73 09/25/17 13:38 93 Nasal Cannula 2.0 09/25/17 13:37 90 Room Air 09/25/17 13:36 109 42 89 09/25/17 13:31 118 39 152/73 97 Nasal Cannula 2.0 09/25/17 13:24 36.5 100 34 134/72 90 Room Air 09/25/17 13:21 153 36 93 Nasal Cannula 2.0 09/25/17 13:19 149/82 09/25/17 13:11 139 27 Nasal Cannula 2.0 09/25/17 13:09 134/73 90 Physical Exam Vital signs reviewed. General: Well-appearing older female, in no significant distress. HEENT: No scleral icterus, PERRLA, neck supple. Atraumatic. Cardiovascular: Regular rate and rhythm, no extra sounds. Pulmonary: Clear to auscultation bilaterally, normal work of breathing. Abdomen: Soft, nontender, nondistended, positive bowel sounds. Musculoskeletal: Atraumatic, no peripheral edema. There is twitching of the LUE and LLE. Neurologic: She is able to follow commands and speak clearly. She is aware of the year and the month. She is unable to squeeze the left hand or purposively move the LLE. Skin: Warm, dry, no rash Medical Decision & Procedures ER Provider Diagnostic Interpretation: Radiology results as stated below per my review and radiologist interpretation: HEAD WITHOUT CONTRAST (CT) CT DOSE: 1377.16 mGycm HISTORY: Mental status change. Seizure. AMS TECHNIQUE: Multiaxial CT images of the head were performed without the use of intravenous contrast. A dose lowering technique was utilized adhering to the principles of ALARA. Comparison: 06/30/2017 Findings: The paranasal sinuses and mastoid air cells are clear. Right frontal ventricular ventriculostomy catheter is again noted. It is unchanged in location with tip in the right lateral ventricle. There are findings of moderate chronic small vessel change throughout both cerebral hemispheres. The left-sided subdural hematoma prior study has resolved. There are findings of mild increase in ventricular prominence. Maximum transaxial dimension is 5.1 cm increased from 3.97 cm. The findings of mild cortical effacement as well as a component of atrophy appears similar. Impression: 1. Mild increase in ventricular distention with maximum transaxial ventricular dimensions currently 5.1 cm increased from the prior study of 3.97 cm 2. Stable findings of atrophy, chronic small vessel change, 3. Right ventriculostomy catheter unchanged in position. 4. Interval resolution of the left apical subdural hematoma on the prior exam. The above report was generated using voice recognition software. It may contain grammatical, syntax or spelling errors. CHEST ONE VIEW PORTABLE CLINICAL HISTORY: seizure, AMS dyspnea COMPARISON STUDY: 06/30/2017 FINDINGS: Findings of diffuse parenchymal fibrosis. Mild stable cardia megaly. No evidence for superimposed infiltrative process. Postoperative changes low cervical spine. IMPRESSION: Diffuse chronic parenchymal fibrosis. No acute or interval process. The above report was generated using voice recognition software. It may contain grammatical, syntax or spelling errors. Electronically signed by: Christian Bonilla M.D. 09/25/2017 2:12 PM Dictated Date/Time: 09/25/2017 2:08 PM Laboratory Results 09/25/17 13:15 Red Blood Count 4.40, Mean Corpuscular Volume 89.1, Mean Corpuscular Hemoglobin 29.5, Mean Corpuscular Hemoglobin Concent 33.2, Mean Platelet Volume 9.8, Neutrophils (%) (Auto) 69.3, Lymphocytes (%) (Auto) 20.9, Monocytes (%) (Auto) 8.2, Eosinophils (%) (Auto) 1.1, Basophils (%) (Auto) 0.3, Neutrophils # (Auto) 6.15, Lymphocytes # (Auto) 1.86, Monocytes # (Auto) 0.73, Eosinophils # (Auto) 0.10, Basophils # (Auto) 0.03 09/25/17 13:15 Test 09/25/17 13:15 09/25/17 13:28 White Blood Count 8.89 K/uL (4.8-10.8) Red Blood Count 4.40 M/uL (4.2-5.4) Hemoglobin 13.0 g/dL (12.0-16.0) Hematocrit 39.2 % (37-47) Mean Corpuscular Volume 89.1 fL (80-100) Mean Corpuscular Hemoglobin 29.5 pg (25-34) Mean Corpuscular Hemoglobin Concent 33.2 g/dl (32-36) Platelet Count 337 K/uL (130-400) Mean Platelet Volume 9.8 fL (7.4-10.4) Neutrophils (%) (Auto) 69.3 % Lymphocytes (%) (Auto) 20.9 % Monocytes (%) (Auto) 8.2 % Eosinophils (%) (Auto) 1.1 % Basophils (%) (Auto) 0.3 % Neutrophils # (Auto) 6.15 K/uL (1.4-6.5) Lymphocytes # (Auto) 1.86 K/uL (1.2-3.4) Monocytes # (Auto) 0.73 K/uL (0.11-0.59) Eosinophils # (Auto) 0.10 K/uL (0-0.5) Basophils # (Auto) 0.03 K/uL (0-0.2) RDW Standard Deviation 44.7 fL (36.4-46.3) RDW Coefficient of Variation 13.6 % (11.5-14.5) Immature Granulocyte % (Auto) 0.2 % Immature Granulocyte # (Auto) 0.02 K/uL (0.00-0.02) Prothrombin Time 11.4 SECONDS (9.0-12.0) Prothromb Time International Ratio 1.1 (0.9-1.1) Activated Partial Thromboplast Time 26.6 SECONDS (21.0-31.0) Partial Thromboplastin Ratio 1.0 Anion Gap 6.0 mmol/L (3-11) Est Creatinine Clear Calc Drug Dose 62.9 ml/min Estimated GFR () 95.5 Estimated GFR (Non- 82.4 BUN/Creatinine Ratio 30.7 (10-20) Calcium Level 9.1 mg/dl (8.5-10.1) Magnesium Level 2.1 mg/dl (1.8-2.4) Total Bilirubin 0.4 mg/dl (0.2-1) Direct Bilirubin < 0.1 mg/dl (0-0.2) Aspartate Amino Transf (AST/SGOT) 14 U/L (15-37) Alanine Aminotransferase (ALT/SGPT) 15 U/L (12-78) Alkaline Phosphatase 32 U/L (45-117) Troponin I < 0.015 ng/ml (0-0.045) Total Protein 7.1 gm/dl (6.4-8.2) Albumin 3.5 gm/dl (3.4-5.0) Urine Color YELLOW Urine Appearance CLEAR (CLEAR) Urine pH 5.5 (4.5-7.5) Urine Specific [place] 1.023 (1.000-1.030) Urine Protein NEG (NEG) Urine Glucose (UA) NEG (NEG) Urine Ketones NEG (NEG) Urine Occult Blood NEG (NEG) Urine Nitrite NEG (NEG) Urine Bilirubin NEG (NEG) Urine Urobilinogen NEG (NEG) Urine Leukocyte Esterase TRACE (NEG) Urine WBC (Auto) 5-10 /hpf (0-5) Urine RBC (Auto) 0-4 /hpf (0-4) Urine Hyaline Casts (Auto) 1-5 /lpf (0-5) Urine Epithelial Cells (Auto) 20-30 /lpf (0-5) Urine Bacteria (Auto) NEG (NEG) Laboratory results per my review. Medications Administered Medications (Trade) Dose Ordered Sig/Kaitlin Route Start Time Stop Time Status Last Admin Dose Admin Sodium Chloride 1,000 ml @ 125 mls/hr Q8H STAT IV 09/25/17 13:00 09/25/17 17:58 DC 09/25/17 13:20 125 MLS/HR Lorazepam (Ativan Inj) 1 mg NOW STAT IV 09/25/17 13:08 09/25/17 13:11 DC 09/25/17 13:19 1 MG Levetiracetam 1000 mg/Dextrose 110 ml @ 440 mls/hr ONE ONCE IV 09/25/17 13:15 09/25/17 13:29 DC 09/25/17 13:21 440 MLS/HR Lorazepam (Ativan Inj) 1 mg NOW STAT IV 09/25/17 13:47 09/25/17 13:48 DC 09/25/17 13:53 1 MG Phenytoin Sodium 1000 mg/Sodium Chloride 120 ml @ 360 mls/hr TODAY@1433 IV 09/25/17 14:33 09/25/17 16:00 DC 09/25/17 14:53 360 MLS/HR ECG Per My Interpretation Indication: weakness (stroke-like Sx) Rate (beats per minute): 77 Findings: other (EKG IS UNINTERPRETABLE SECONDARY TO POOR BASELINE) ED Course 1258: Past medical records reviewed. The patient was evaluated in room A1. A complete history and physical examination was performed. 1300: Ordered Sodium Chloride 1000 mL @ 125 mL/hr IV. 1308: Ordered Ativan 1 mg IV. 1315: Ordered Levetiracetam 110 mL @ 440 mL/hr IV. 1347: Ordered Lorazepam 1 mg IV. 1401: I discussed the case with Dr. Araujo's SOCIAL INSURANCE ANALYST. She states that she will call back after she discusses with Dr. Araujo. 1433: Ordered Phenytoin Sodium 1000 mg/Sodium Chloride 120 mL @ 360 mL/hr IV. 1437: I discussed the case with Dr. Araujo - Neurosurgeon [facility]. He wants to take the patient to the ED, but they said they have no medicine beds and the weather will be a huge constraint as no flights are flying currently. 1451: I discussed the case with Dr. Jorge - [facility]. The patient will be accepted for transfer to [facility]. Medical Decision Differential diagnosis: Etiologies such as intracranial hemorrhage, stroke, hydrocephalus, meningitis, intracranial mass, electrolyte abnormality, as well as others were entertained. This patient was evaluated and appeared to be in no significant distress. Patient is able to speak although continues to have seizure-like activity of the left upper and left lower extremity. She is not able to follow commands or purposefully use the left arm or left leg. CT scan of the head was performed and reveals the CORRECTION OFFICER REFORMATORY shunt in good position with slightly larger ventricles than previous. According to her son, her neurosurgeon at [facility] recently decreased the flow of her CORRECTION OFFICER REFORMATORY shunt for increased pressure, consistent with CT findings. The patient received IV Ativan, IV Keppra without significant improvement of the seizure activity. I did speak with Dr. Cheney of neurology who has recommended IV Dilantin. The patient was given a dose of 1 g of IV Dilantin with improvement in the seizure activity although the patient had significant depression of her mental status. She does have a DNR according to her son. Intubation was discussed however he would like to hold off as long as possible. I did discuss transfer with the patient's neurosurgeon, Dr. Araujo at [facility]. Due to inclement weather and travel difficulties, it was felt that it is safer for the patient to be transferred to a more local facility. [facility] had seen the patient with previous intracranial hemorrhages. Dr. Jorge of the ICU at [facility] has accepted the patient in transfer. As her mental status seems to be improving and her seizure activity has decreased/stopped, she will be sent by ground ALS. Case has been signed out to Dr. Tucker pending transport. Patient and son are aware of the plan and agree. Medication Reconcilliation Current Medication List: was personally reviewed by me Blood Pressure Screening Patient's blood pressure: Normal blood pressure Consults Time Called: 1356 Consulting Physician: Dr. Araujo's RUSS - Neurosurgeon Returned Call: 1401 I discussed the case with Dr. Araujo's RUSS. She states that she will call back after she discusses with Dr. Araujo. Additional Consults: Time Called: 1425 Consulted Physician: Dr. Katelyn Feliciano - Neurology Returned Call: 1428 Additional Comments: I discussed the case with Dr. Katelyn Feliciano - Neurology. She suggests transferring the patient to [place]. Time Called: 1435 Consulted Physician: Dr. Araujo - Neurosurgeon Returned Call: 1438 Additional Comments: I discussed the case with Dr. Araujo - Neurosurgeon [facility]. He wants to take the patient to the ED, but they said they have no medicine beds and the weather will be a huge constraint as no flights are flying currently. Impression Primary Impression: Status epilepticus Additional Impressions: Normal pressure hydrocephalus CORRECTION OFFICER REFORMATORY (ventriculoperitoneal) shunt status Critical Care I have personally spent greater than 90 minutes of critical care time in the direct management of this patient. This includes bedside care, interpretation of diagnostic studies, and testing, discussion with consultants, patient, and family members, and other required patient management activities. This 90 minutes is in excess of all separately billable procedures. Scribe Attestation The scribe's documentation has been prepared under my direction and personally reviewed by me in its entirety. I confirm that the note above accurately reflects all work, treatment, procedures, and medical decision making performed by me. Departure Information Dispostion Transfer Acute Care Facility ([facility]) Referrals Sera Figueredo C.R.NShadP. (PCP) Problem Qualifiers
[2017-09-25 13:24] VITALS: TEMP 36.5; Ht 162.6 cm; Wt 66.2 kg
[2017-09-25 13:25] LABS: BASO % 0.3 %; BASO ABS # 0.03 K/uL (0-0.2); EOS % 1.1 %; HEMATOCRIT 39.2 % (37-47); IG# 0.02 K/uL (0.00-0.02); LYMPH % 20.9 %; LYMPH ABS # 1.86 K/uL (1.2-3.4); MEAN CELL VOLUME 89.1 fL (80-100); MEAN CORPUSCULAR HEMOGLOBIN 29.5 pg (25-34); MEAN CORPUSCULAR HGB CONC 33.2 g/dl (32-36); MEAN PLATELET VOLUME 9.8 fL (7.4-10.4); MONO % 8.2 %; MONO ABS # 0.73 K/uL (0.11-0.59); NEUT % 69.3 %; NEUT ABS # 6.15 K/uL (1.4-6.5); PLATELET COUNT 337 K/uL (130-400); RED CELL DISTRIBUTION WIDTH CV 13.6 % (11.5-14.5); RED CELL DISTRIBUTION WIDTH SD 44.7 fL (36.4-46.3); WHITE BLOOD COUNT 8.89 K/uL (4.8-10.8)
[2017-09-25 13:37] LABS: INR 1.1 (0.9-1.1); PTT PATIENT 26.6 SECONDS (21.0-31.0)
[2017-09-25 13:38] VITALS: O2SAT 93
[2017-09-25 13:41] LABS: ALBUMIN 3.5 gm/dl (3.4-5.0); ALT/SGPT 15 U/L (12-78); BLOOD UREA NITROGEN 18 mg/dl (7-18); CALCIUM 9.1 mg/dl (8.5-10.1); CARBON DIOXIDE 28 mmol/L (21-32); CREATININE 0.59 mg/dl (0.60-1.20); GLUCOSE 91 mg/dl (70-99); POTASSIUM 4.4 mmol/L (3.5-5.1); SODIUM 140 mmol/L (136-145)
[2017-09-25] MEDS ORDERED: RQP25 PO (13:45)
[2017-09-25 13:46] LABS: ALKALINE PHOSPHATASE 32 U/L (45-117); AST/SGOT 14 U/L (15-37); TOTAL PROTEIN 7.1 gm/dl (6.4-8.2)
--- NOTE | 2017-09-25 14:13 | DIAGNOSTIC IMAGING REPORT ---
CHEST ONE VIEW PORTABLE CLINICAL HISTORY: seizure, AMS dyspnea COMPARISON STUDY: 06/30/2017 FINDINGS: Findings of diffuse parenchymal fibrosis. Mild stable cardia megaly. No evidence for superimposed infiltrative process. Postoperative changes low cervical spine. IMPRESSION: Diffuse chronic parenchymal fibrosis. No acute or interval process. The above report was generated using voice recognition software. It may contain grammatical, syntax or spelling errors. Electronically signed by: Christian Bonilla M.D. 09/25/2017 2:12 PM Dictated Date/Time: 09/25/2017 2:08 PM
[2017-09-25] MEDS ORDERED: PHENYTOIN IV INFUSION 1,000 MG in SODIUM CHLORIDE 0.9% 100ML 100 ML IV SCH (14:33)
--- NOTE | 2017-09-25 16:54 | EMERGENCY ROOM VISIT NOTE ---
ED Visit Note First contact with patient: 16:34 I received this patient at change of shift signout from Dr. Cardoso. Please see her note for complete history and physical. The patient is an 87-year-old female who presented to the emergency department with difficult to manage seizures however there is been no seizure activity for the last few hours. The patient was managed with IV Keppra, IV Ativan, and IV Dilantin. Currently the patient is seizure-free. She is currently scheduled to be transferred to [facility] as soon as possible. I received a phone call from the coal briquette machine operator with concerns that there was inclement weather so the transfer is to be delayed a few hours. I discussed this with the accepting team at [facility] and I also discussed this with the patient's family everybody is agreeable to this plan at this time as the patient remained stable.
[2017-09-25 17:13] VITALS: BP 132/54; PULSE 59; O2SAT 100
== END 2017-09-25 17:27 | disposition short-term general hospital (02) ==
LOC: EDBD 12:51 → C.EDA 12:52
DX: G40.901 Epilepsy, unspecified, not intractable, with status epilepticus (principal); G91.2 (Idiopathic) normal pressure hydrocephalus; Z98.2 Presence of cerebrospinal fluid drainage device

== ENCOUNTER → 2017-10-17 | Outpatient (CLI) | payer OTHER ==
[~2017-10-17] MED LIST changes: +RQP25 PO
--- NOTE | 2017-10-17 13:12 | DIAGNOSTIC IMAGING REPORT ---
R FINGER(S) MIN 2 VIEWS ROUTINE CLINICAL HISTORY: W19.XXXA pain COMPARISON: 04/23/2017 DISCUSSION: Small avulsion of a dorsal osteophyte projecting from the base of the distal phalanx. This is seen at the fourth finger level. Considerable degenerative changes noted throughout. Considerable degenerative change fifth finger. No well-defined acute abnormality of the fifth finger. Moderate generalized soft tissue edema IMPRESSION: 1. Generalized degenerative change of the fourth and fifth fingers. 2. Fracture of a dorsal osteophyte projecting from the dorsal base of the distal phalanx fourth finger. 3. Moderate soft tissue edematous change. The above report was generated using voice recognition software. It may contain grammatical, syntax or spelling errors. Electronically signed by: Christian Bonilla M.D. 10/17/2017 1:11 PM Dictated Date/Time: 10/17/2017 1:09 PM
--- NOTE | 2017-10-17 13:14 | DIAGNOSTIC IMAGING REPORT ---
R HAND MIN 3 VIEWS ROUTINE CLINICAL HISTORY: W19.XXXA pain. Trauma. COMPARISON: None. DISCUSSION: Fracture of a osteophyte of the base of the distal phalanx right fourth finger. Severe degenerative change of the interphalangeal joints throughout all remaining fingers. No well-defined additional acute abnormality. Chondrocalcinosis and calcification of the triangular fibrocartilage of the wrist. Bony mineralization throughout is diminished. IMPRESSION: Fracture of a dorsal posterior osteophyte base distal phalanx fourth finger. Severe degenerative change of all remaining osseous structures. The above report was generated using voice recognition software. It may contain grammatical, syntax or spelling errors. Electronically signed by: Christian Bonilla M.D. 10/17/2017 1:12 PM Dictated Date/Time: 10/17/2017 1:11 PM
== END | disposition home or self-care (01) ==
LOC: C.RAD 12:46
PROVIDERS: ATTEND Nurse Practitioner
DX: S69.91XA Unspecified injury of right wrist, hand and finger(s), initial encounter (principal); W19.XXXA Unspecified fall, initial encounter; M19.041 Primary osteoarthritis, right hand; M25.741 Osteophyte, right hand; M79.9 Soft tissue disorder, unspecified

== ENCOUNTER → 2017-10-25 | Outpatient (CLI) | payer OTHER | END | disposition home or self-care (01) | LOC: C.RDSM 10:10 | PROVIDERS: ATTEND Physical Medicine & Rehabilitation | DX: M79.651 Pain in right thigh (principal) ==

== ENCOUNTER 2017-11-03 10:06 | Emergency (ER) | payer OTHER ==
[2017-11-03 10:11] VITALS: TEMP 36.7
[2017-11-03] MEDS ORDERED: SODIUM CHLORIDE 0.9% 1000ML 1,000 ML IV STA (10:19)
--- NOTE | 2017-11-03 10:23 | EMERGENCY ROOM VISIT NOTE ---
History Report prepared by Shahida: Madina Ovalle Under the Supervision of: Dr. Franco Fields M.D. First contact with patient: 10:14 Chief Complaint: CONFUSION Stated Complaint: INCREASED CONFUSION, WEAKNESS, STRONG URINE SMELL History of Present Illness The patient is a 87 year old female who presents to the Emergency Room with complaints of confusion beginning 3 to 4 days ago. As per her caregiver, the patient has been very confused but it worsened last night. She reports the patient had a urine collected to be tested for a UTI but it was never sent for urinalysis. The patient denies any nausea, vomiting or hematochezia. When asked , the patient knows the year, president, and where she is. Her caregiver also states the patient had a stroke 5 weeks ago and takes Keppra. No fevers. 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 A total of ten systems were reviewed and were otherwise negative. Past Medical & Surgical Medical Problems: (1) Displaced fracture of right femoral neck (2) Infection of prosthetic hip joint Surgical Problems: (1) Spinal stenosis Family History No significant family history Social History Smoking Status: Never Smoker Alcohol Use: none Drug Use: none Marital Status: Housing Status: other (caregiver) Occupation Status: retired Current/Historical Medications Scheduled Ciprofloxacin Hcl (Cipro), 500 MG PO BID Duloxetine HCl (Duloxetine HCl), 30 MG PO HS Levetiracetam (Levetiracetam), 1,000 MG PO BID Multiple Vitamins W/ Minerals (Preservision Areds 2), 1 TAB PO BID Omeprazole (Prilosec), 20 MG PO DAILY Ropinirole HCl (Ropinirole HCl), 0.25 MG PO DAILY Scheduled PRN Hydrocodone/Acetaminophen 5MG/325MG ([place] 5MG/325MG), 1-2 TABLET PO Q4 PRN for Pain Polyethylene Glycol 3350 (Miralax), 17 GM PO DAILY PRN for Constipation Zolpidem Tartrate (Zolpidem Tartrate), 5 MG PO HS PRN for Sleep Allergies Coded Allergies: No Known Allergies (Unverified , 11/03/17) Physical Exam Vital Signs Date Time Temp Pulse Resp B/P (MAP) Pulse Ox O2 Delivery O2 Flow Rate FiO2 11/03/17 13:38 58 16 108/81 98 11/03/17 12:27 61 18 143/64 96 Room Air 11/03/17 11:02 77 18 115/55 98 Room Air 11/03/17 10:39 65 11/03/17 10:11 36.7 68 20 111/55 95 Room Air Physical Exam Physical Exam GENERAL: She is oriented to person, place, and time. She appears well- developed and well-nourished. She does not appear distressed. ____ HENT: Exam performed. Head: Normocephalic and atraumatic. Right Ear: External ear normal. No mastoid tenderness. Left Ear: External ear normal. No mastoid tenderness. Mouth/Throat: No trismus in the jaw. No dental abscesses or uvula swelling. No oropharyngeal exudate or tonsillar abscesses. Dry mucus membranes. EYES: Conjunctivae and EOM are normal. Pupils are equal, round, and reactive to light. Right eye exhibits no discharge. Left eye exhibits no discharge. No scleral icterus. ____ NECK: Normal range of motion. Neck supple. No JVD present. No spinous process tenderness present. No carotid bruit present. No rigidity. No tracheal deviation and normal range of motion present. No Brudzinski's sign and no Kernig 's sign noted. ____ CV: Normal rate, regular rhythm, normal heart sounds and intact distal pulses. There is no peripheral edema. Palpable radial pulses bue. ____ PULM/CHEST: Effort normal and breath sounds normal. No respiratory distress. No stridor. She has no wheezes. She has no rales. Chest Wall: She exhibits no tenderness. ____ ABD: The abdomen is soft. Bowel sounds are normal. She has no distension. No mass is present. There is no tenderness. There is no rebound, no guarding, no Bolivar's sign and no tenderness at McBurney's point. Rovsig negative MUSC/SKEL: Normal range of motion. There is no peripheral edema, tenderness or deformity. LYMPH: No cervical adenopathy. ____ NEURO: She is alert and oriented to person, place, and time. She has normal strength. No cranial nerve deficit or sensory deficit. Coordination and gait normal. GCS eye subscore is 4. GCS verbal subscore is 5. GCS motor subscore is 6. Cerebellar tests wnl. ____ SKIN: Skin is warm and dry. She is not diaphoretic. ____ PSYCH: She has a normal mood and affect. Her behavior is normal. Judgment and thought content normal. ____ Medical Decision & Procedures ER Provider Diagnostic Interpretation: Radiology results as stated below per my review and radiologist interpretation: HEAD CT NONCONTRAST CT DOSE: 872.26 mGy.cm HISTORY: Altered mental status. TECHNIQUE: Multiaxial CT images of the head were performed without the use of intravenous contrast. Automated exposure control was utilized for this study. A dose lowering technique was utilized adhering to the principles of ALARA. Comparison: Head CT 09/25/2017. Findings: Partial opacification of the left sphenoid sinus, unchanged. The mastoid air cells are clear. The calvarium and skull base are intact. There is again noted a right frontal approach ventriculostomy catheter was terminates in the frontal horn of the right lateral ventricle. This remains unchanged. No calvarial fractures. There is no mass, hematoma, midline shift, acute infarct. The ventricles remain stable in size demonstrating mild to moderate ventricular megaly. Encephalomalacia within the right high convexity is also unchanged. Impression: No significant change compared to the prior study. No acute intracranial abnormality. No change in the mild to moderate ventriculomegaly. The right ventriculostomy catheter is unchanged in position. Electronically signed by: Hill Last M.D. 11/03/2017 11:13 AM CHEST 2 VIEWS ROUTINE HISTORY: Altered mental status. COMPARISON: Chest 11/03/2017. FINDINGS: There are low lung volumes. Chronic interstitial thickening remains unchanged. No pleural effusions. No pneumothorax. Cervical spinal fusion hardware is again noted. The patient is rotated on this study. The heart is stable in size. IMPRESSION: Chronic interstitial thickening, unchanged. This is consistent with fibrosis. No new focal lung consolidations. Electronically signed by: Hill Last M.D. 11/03/2017 11:47 AM SKULL MIN 4 VIEWS, CERVICAL SPINE 2 OR 3 VIEWS, ABDOMEN 2 VIEWS CLINICAL HISTORY: shunt placement COMPARISON STUDY: Chest 11/03/2017. FINDINGS: There is a right frontal approach ventriculostomy catheter. This extends along the right side of the neck, chest, and abdomen. The tubing appears intact. The tip terminates in the left lower quadrant. There is a right hip hemiarthroplasty. L2 vertebroplasty. Cervical spinal fusion hardware. Moderate stool within the colon. IMPRESSION: Right-sided ventriculostomy catheter. The visualized tubing appears intact. Electronically signed by: Hill Last M.D. 11/03/2017 12:39 PM SKULL MIN 4 VIEWS, CERVICAL SPINE 2 OR 3 VIEWS, ABDOMEN 2 VIEWS CLINICAL HISTORY: shunt placement COMPARISON STUDY: Chest 11/03/2017. FINDINGS: There is a right frontal approach ventriculostomy catheter. This extends along the right side of the neck, chest, and abdomen. The tubing appears intact. The tip terminates in the left lower quadrant. There is a right hip hemiarthroplasty. L2 vertebroplasty. Cervical spinal fusion hardware. Moderate stool within the colon. IMPRESSION: Right-sided ventriculostomy catheter. The visualized tubing appears intact. Electronically signed by: Hill Last M.D. 11/03/2017 12:39 PM SKULL MIN 4 VIEWS, CERVICAL SPINE 2 OR 3 VIEWS, ABDOMEN 2 VIEWS CLINICAL HISTORY: shunt placement COMPARISON STUDY: Chest 11/03/2017. FINDINGS: There is a right frontal approach ventriculostomy catheter. This extends along the right side of the neck, chest, and abdomen. The tubing appears intact. The tip terminates in the left lower quadrant. There is a right hip hemiarthroplasty. L2 vertebroplasty. Cervical spinal fusion hardware. Moderate stool within the colon. IMPRESSION: Right-sided ventriculostomy catheter. The visualized tubing appears intact. Electronically signed by: Hill Last M.D. 11/03/2017 12:39 PM Laboratory Results 11/03/17 10:28 Red Blood Count 4.21, Mean Corpuscular Volume 87.6, Mean Corpuscular Hemoglobin 28.3, Mean Corpuscular Hemoglobin Concent 32.2, Mean Platelet Volume 9.4, Neutrophils (%) (Auto) 67.7, Lymphocytes (%) (Auto) 17.6, Monocytes (%) (Auto) 11.3, Eosinophils (%) (Auto) 2.9, Basophils (%) (Auto) 0.4, Neutrophils # (Auto ) 4.72, Lymphocytes # (Auto) 1.23, Monocytes # (Auto) 0.79, Eosinophils # (Auto ) 0.20, Basophils # (Auto) 0.03 11/03/17 10:28 Test 11/03/17 10:28 11/03/17 10:39 White Blood Count 6.98 K/uL (4.8-10.8) Red Blood Count 4.21 M/uL (4.2-5.4) Hemoglobin 11.9 g/dL (12.0-16.0) Hematocrit 36.9 % (37-47) Mean Corpuscular Volume 87.6 fL (80-100) Mean Corpuscular Hemoglobin 28.3 pg (25-34) Mean Corpuscular Hemoglobin Concent 32.2 g/dl (32-36) Platelet Count 309 K/uL (130-400) Mean Platelet Volume 9.4 fL (7.4-10.4) Neutrophils (%) (Auto) 67.7 % Lymphocytes (%) (Auto) 17.6 % Monocytes (%) (Auto) 11.3 % Eosinophils (%) (Auto) 2.9 % Basophils (%) (Auto) 0.4 % Neutrophils # (Auto) 4.72 K/uL (1.4-6.5) Lymphocytes # (Auto) 1.23 K/uL (1.2-3.4) Monocytes # (Auto) 0.79 K/uL (0.11-0.59) Eosinophils # (Auto) 0.20 K/uL (0-0.5) Basophils # (Auto) 0.03 K/uL (0-0.2) RDW Standard Deviation 46.7 fL (36.4-46.3) RDW Coefficient of Variation 14.5 % (11.5-14.5) Immature Granulocyte % (Auto) 0.1 % Immature Granulocyte # (Auto) 0.01 K/uL (0.00-0.02) Prothrombin Time 11.2 SECONDS (9.0-12.0) Prothromb Time International Ratio 1.1 (0.9-1.1) Activated Partial Thromboplast Time 28.9 SECONDS (21.0-31.0) Partial Thromboplastin Ratio 1.1 Anion Gap 5.0 mmol/L (3-11) Estimated GFR () 93.0 Estimated GFR (Non- 80.2 BUN/Creatinine Ratio 27.7 (10-20) Lactic Acid Level 2.1 mmol/L (0.4-2.0) Calcium Level 8.1 mg/dl (8.5-10.1) Total Bilirubin 0.3 mg/dl (0.2-1) Direct Bilirubin < 0.1 mg/dl (0-0.2) Aspartate Amino Transf (AST/SGOT) 15 U/L (15-37) Alanine Aminotransferase (ALT/SGPT) 19 U/L (12-78) Alkaline Phosphatase 40 U/L (45-117) Troponin I < 0.015 ng/ml (0-0.045) Total Protein 7.0 gm/dl (6.4-8.2) Albumin 2.9 gm/dl (3.4-5.0) Lipase 69 U/L (73-393) Urine Color YELLOW Urine Appearance TURBID (CLEAR) Urine pH 7.5 (4.5-7.5) Urine Specific [place] 1.020 (1.000-1.030) Urine Protein 2+ (NEG) Urine Glucose (UA) NEG (NEG) Urine Ketones NEG (NEG) Urine Occult Blood 2+ (NEG) Urine Nitrite NEG (NEG) Urine Bilirubin NEG (NEG) Urine Urobilinogen NEG (NEG) Urine Leukocyte Esterase LARGE (NEG) Urine WBC (Auto) >30 /hpf (0-5) Urine RBC (Auto) 10-30 /hpf (0-4) Urine Hyaline Casts (Auto) 0 /lpf (0-5) Urine Epithelial Cells (Auto) 0-5 /lpf (0-5) Urine Bacteria (Auto) 2+ (NEG) Urine Pathogenic Casts /lpf (0) Laboratory results reviewed by me Medications Administered Medications (Trade) Dose Ordered Sig/Kaitlin Route Start Time Stop Time Status Last Admin Dose Admin Sodium Chloride 1,000 ml @ 125 mls/hr Q8H STAT IV 11/03/17 10:19 11/03/17 14:09 DC 11/03/17 10:42 125 MLS/HR Ceftriaxone Sodium (Rocephin Inj) 1 gm NOW STAT IV 11/03/17 11:39 11/03/17 11:40 DC 11/03/17 11:53 1 GM ED Course 1015: The patient was evaluated in room B9. A complete history and physical exam was performed. 1019: Ordered Sodium Chloride 1000 ml @ 125 mls/hr IV 1139: Ordered Rocephin Inj 1 gm IV 1236: Vital are stable. She is alert. Her caregiver states she is more normal to her baseline .her labs show a UTI and Rocephin is being infused. If her x- ray is negative she will be discharged with prescription antibiotics. Family is at bedside. 1338: Vital signs stable. Imaging within normal limits. Labs within normal limits with the exception of UTI, mildly elevated lactic acid of 2.1, thought to be due to diabetic dehydration. Patient was hydrated in the ER. Patient will be discharged to follow-up with PCP. DISCHARGE - Plan of care discussed with family and questions answered. The family was given both verbal and printed discharge instructions. The family verbalized understanding and ability to comply. The family is to seek outpatient follow up as noted in the discharge instructions. The family verbalized understanding and ability to comply. The family is discharged in stable condition. The family was instructed to return for worsening symptoms. Medical Decision Vital signs stable. Imaging within normal limits. Labs within normal limits with the exception of UTI, mildly elevated lactic acid of 2.1, thought to be due to diabetic dehydration. Patient was hydrated in the ER. Patient will be discharged to follow-up with PCP. DISCHARGE - Plan of care discussed with family and questions answered. The family was given both verbal and printed discharge instructions. The family verbalized understanding and ability to comply. The family is to seek outpatient follow up as noted in the discharge instructions. The family verbalized understanding and ability to comply. The family is discharged in stable condition. The family was instructed to return for worsening symptoms. Medication Reconcilliation Current Medication List: was personally reviewed by me Blood Pressure Screening Patient's blood pressure: Normal blood pressure Blood pressure disposition: Did not require urgent referral Impression Primary Impression: UTI (urinary tract infection) Scribe Attestation The scribe's documentation has been prepared under my direction and personally reviewed by me in its entirety. I confirm that the note above accurately reflects all work, treatment, procedures, and medical decision making performed by me. The chart was completed utilizing [employer] voice recognition software. Grammatical errors, random word insertions, pronoun errors, and incomplete sentences are an occasional consequence of this system due to software limitations, ambient noise, and hardware issues. Any formal questions or concerns about the content, text, or information contained within the body of this dictation should be directly addressed to the physician for clarification. Departure Information Dispostion Home / Self-Care Prescriptions Ciprofloxacin Hcl (CIPRO) 500 Mg Tab 500 MG PO BID for 7 Days, #14 TAB Prov: Franco Fields M.D. 11/03/17 Referrals Antonio Barrera M.D. (PCP) Forms HOME CARE DOCUMENTATION FORM, IMPORTANT VISIT INFORMATION, WORK / SCHOOL INSTRUCTIONS Patient Instructions My [facility] Additional Instructions Follow-up with your primary care physician in 1-2 days. Return to the emergency department the patient develops fever greater than 100.4 , vomiting, increased confusion. Problem Qualifiers Primary Impression: UTI (urinary tract infection) Urinary tract infection type: site unspecified Hematuria presence: with hematuria Qualified Codes: N39.0 - Urinary tract infection, site not specified ; R31.9 - Hematuria, unspecified
[2017-11-03 10:41] LABS: BASO % 0.4 %; BASO ABS # 0.03 K/uL (0-0.2); EOS % 2.9 %; HEMATOCRIT 36.9 % (37-47); HEMOGLOBIN 11.9 g/dL (12.0-16.0); IG# 0.01 K/uL (0.00-0.02); LYMPH % 17.6 %; LYMPH ABS # 1.23 K/uL (1.2-3.4); MEAN CELL VOLUME 87.6 fL (80-100); MEAN CORPUSCULAR HEMOGLOBIN 28.3 pg (25-34); MEAN CORPUSCULAR HGB CONC 32.2 g/dl (32-36); MEAN PLATELET VOLUME 9.4 fL (7.4-10.4); MONO % 11.3 %; MONO ABS # 0.79 K/uL (0.11-0.59); NEUT % 67.7 %; NEUT ABS # 4.72 K/uL (1.4-6.5); PLATELET COUNT 309 K/uL (130-400); RED CELL DISTRIBUTION WIDTH CV 14.5 % (11.5-14.5); RED CELL DISTRIBUTION WIDTH SD 46.7 fL (36.4-46.3); WHITE BLOOD COUNT 6.98 K/uL (4.8-10.8)
[2017-11-03] MEDS ORDERED: OMEP20CA9 PO (10:57)
[2017-11-03] MEDS ORDERED: POLY335019 PO (10:57)
[2017-11-03] MEDS ORDERED: LEVE100021 PO (10:57)
[2017-11-03 10:58] LABS: INR 1.1 (0.9-1.1); PTT PATIENT 28.9 SECONDS (21.0-31.0)
[2017-11-03 11:01] LABS: ALBUMIN 2.9 gm/dl (3.4-5.0); ALKALINE PHOSPHATASE 40 U/L (45-117); ALT/SGPT 19 U/L (12-78); AST/SGOT 15 U/L (15-37); BLOOD UREA NITROGEN 18 mg/dl (7-18); CALCIUM 8.1 mg/dl (8.5-10.1); CARBON DIOXIDE 31 mmol/L (21-32); CREATININE 0.64 mg/dl (0.60-1.20); GLUCOSE 91 mg/dl (70-99); LIPASE 69 U/L (73-393); POTASSIUM 3.9 mmol/L (3.5-5.1); SODIUM 143 mmol/L (136-145)
--- NOTE | 2017-11-03 11:14 | DIAGNOSTIC IMAGING REPORT ---
HEAD CT NONCONTRAST CT DOSE: 872.26 mGy.cm HISTORY: Altered mental status. TECHNIQUE: Multiaxial CT images of the head were performed without the use of intravenous contrast. Automated exposure control was utilized for this study. A dose lowering technique was utilized adhering to the principles of ALARA. Comparison: Head CT 09/25/2017. Findings: Partial opacification of the left sphenoid sinus, unchanged. The mastoid air cells are clear. The calvarium and skull base are intact. There is again noted a right frontal approach ventriculostomy catheter was terminates in the frontal horn of the right lateral ventricle. This remains unchanged. No calvarial fractures. There is no mass, hematoma, midline shift, acute infarct. The ventricles remain stable in size demonstrating mild to moderate ventricular megaly. Encephalomalacia within the right high convexity is also unchanged. Impression: No significant change compared to the prior study. No acute intracranial abnormality. No change in the mild to moderate ventriculomegaly. The right ventriculostomy catheter is unchanged in position. Electronically signed by: Hill Last M.D. 11/03/2017 11:13 AM Dictated Date/Time: 11/03/2017 11:06 AM
[2017-11-03] MEDS ORDERED: CEFTRIAXONE SOD INJ 1 GM ADDVIAL IV STA (11:39)
--- NOTE | 2017-11-03 11:48 | DIAGNOSTIC IMAGING REPORT ---
CHEST 2 VIEWS ROUTINE HISTORY: Altered mental status. COMPARISON: Chest 11/03/2017. FINDINGS: There are low lung volumes. Chronic interstitial thickening remains unchanged. No pleural effusions. No pneumothorax. Cervical spinal fusion hardware is again noted. The patient is rotated on this study. The heart is stable in size. IMPRESSION: Chronic interstitial thickening, unchanged. This is consistent with fibrosis. No new focal lung consolidations. Electronically signed by: Hill Last M.D. 11/03/2017 11:47 AM Dictated Date/Time: 11/03/2017 11:45 AM
--- NOTE | 2017-11-03 12:40 | DIAGNOSTIC IMAGING REPORT ---
SKULL MIN 4 VIEWS, CERVICAL SPINE 2 OR 3 VIEWS, ABDOMEN 2 VIEWS CLINICAL HISTORY: shunt placement COMPARISON STUDY: Chest 11/03/2017. FINDINGS: There is a right frontal approach ventriculostomy catheter. This extends along the right side of the neck, chest, and abdomen. The tubing appears intact. The tip terminates in the left lower quadrant. There is a right hip hemiarthroplasty. L2 vertebroplasty. Cervical spinal fusion hardware. Moderate stool within the colon. IMPRESSION: Right-sided ventriculostomy catheter. The visualized tubing appears intact. Electronically signed by: Hill Last M.D. 11/03/2017 12:39 PM Dictated Date/Time: 11/03/2017 12:36 PM
[2017-11-03] MEDS ORDERED: CIPR-255 PO (13:30)
[2017-11-03 13:38] VITALS: BP 108/81; PULSE 58; O2SAT 98
== END 2017-11-03 13:38 | disposition home or self-care (01) ==
LOC: C.EDB 10:07
DX: N39.0 Urinary tract infection, site not specified (principal); R31.9 Hematuria, unspecified; Z86.73 Personal history of transient ischemic attack (TIA), and cerebral infarction without residual deficits; Z79.899 Other long term (current) drug therapy

== ENCOUNTER 2018-08-09 20:46 | Inpatient (IN) ==
[2018-08-09] MEDS ORDERED: LORazepam 2 MG/4 ML VIAL ONE (20:57)
[2018-08-09] MEDS ORDERED: LORazepam 1 MG/2 ML VIAL IV STA (21:05)
[2018-08-09 21:15] LABS: Basophils # (auto) 0.03 K/uL (0-0.2); Basophils % (auto) 0.3 %; Eosinophils # (auto) 0.84 K/uL (0-0.5); Eosinophils % (auto) 9.4 %; Hematocrit (blood only) 41.1 % (37-47); Hemoglobin 13.3 g/dL (12.0-16.0); Immature Granulocytes # (auto) 0.02 K/uL (0.00-0.02); Immature Granulocytes % (auto) 0.2 %; Lymphocytes % (auto) 30.2 %; Mean Corpuscular Hgb Conc 32.4 g/dL (32-36); Mean Corpuscular Volume 89.3 fL (80-100); Mean Platelet Volume 10.2 fL (7.4-10.4); Monocytes # (auto) 1.01 K/uL (0.11-0.59); Monocytes % (auto) 11.3 %; Neutrophils # (auto) 4.35 K/uL (1.4-6.5); Neutrophils % (auto) 48.6 %; Platelet Count 353 K/uL (130-400); RDW Coefficient of Variation 14.6 % (11.5-14.5); RDW Standard Deviation 47.9 fL (36.4-46.3); White Blood Count 8.95 K/uL (4.8-10.8)
--- NOTE | 2018-08-09 21:24 | Emergency Department Note ---
Entered by Francesca George acting as a scribe for Bogdan Zafar DO History of Present Illness General Chief complaint: Seizure Time Seen by Provider: 08/09/18 20:53 Source: patient and EMS Mode of arrival: EMS History of Present Illness Onset (ago): hour(s) 1 Location: head Severity: similar to prior episodes Pain Consistency: + constant Quality: + other (Seizure) Relieved By: not by medication (Keppra, Ativan) Associated symptoms: + other (Neck pain, left arm weakness) Treatments prior to arrival: other (1 mg Ativan) The patient is an 88 year old female who presents to the Emergency Room with complaints of constant seizure starting 1 hour ago. EMS reports that they were called at 1999 by [facility] staff where the patient resides with a report triston t the patient was having a focal seizure. They state that the patients last known baseline was at 1930. They note that they gave the patient 1 mg Ativan MANAGER ENROLLMENT that moderately helped her symptoms but did not completely resolve them. They add that the patient has been taking Keppra. EMS states that the staff at [facility] report that the patient has been taking her medications regularly and that she has not been ill recently. The patient reports that her neck hurts and that her left arm feels week. She states that she has had these symptoms happen before. Home Medications Home Medications Medication Instructions Recorded Confirmed Type acetaminophen [Tylenol] 325 - 650 mg PO Q4 PRN MDD 3 04/13/18 08/09/18 History GRAMS/24 HOURS amoxicillin 2,000 mg PO DIRECTED PRN 04/13/18 08/09/18 History bismuth subsalicylate [Kaopectate 30 ml PO UD PRN MDD 8x/day 04/13/18 08/09/18 History (bismuth subsalicy)] calcium carbonate-vitamin D3 1 tab PO BID 04/13/18 08/09/18 History [Calcium 600 + D(3)] cholecalciferol (vitamin D3) 2,000 unit PO DAILY 04/13/18 08/09/18 History [Vitamin D3] cyanocobalamin (vitamin B-12) 1,000 mcg IM MONTHLY 04/13/18 08/09/18 History duloxetine 30 mg PO DAILY 04/13/18 08/09/18 History hydrocodone-acetaminophen 0.5 tab PO Q6H PRN 04/13/18 08/09/18 History hydrocortisone 1 applic TOPICAL TID PRN 04/13/18 08/09/18 History loperamide 2 mg PO DIRECTED PRN 04/13/18 08/09/18 History omeprazole 20 mg PO DAILY 04/13/18 08/09/18 History polyethylene glycol 3350 [Miralax] 17 g PO DAILY PRN 04/13/18 08/09/18 History psyllium husk [Metamucil] 1 tbsp PO DAILY PRN 04/13/18 08/09/18 History zolpidem [Ambien] 5 mg PO HS PRN 04/13/18 08/09/18 History cranberry extract [Cranberry 1,500 mg PO DAILY 07/09/18 08/09/18 History Concentrate] levetiracetam 1,000 mg PO BID 07/09/18 08/09/18 History vit C,Y-Ur-htvhr-lutein-zeaxan 1 tab PO BID 07/09/18 08/09/18 History [PreserVision AREDS-2] diphenhydramine-acetaminophen 1 - 2 tab PO HS PRN 07/18/18 08/09/18 History [Pain Reliever PM] Allergies Allergy/AdvReac Type Severity Reaction Status Date / Time atropine Allergy Unknown ON [place] Verified 08/09/18 22:57 [place] LIST citalopram Allergy Unknown ON [place] Verified 08/09/18 22:57 [place] LIST fluoxetine Allergy Unknown ON [place] Verified 08/09/18 22:57 VAL[place] LIST paroxetine Allergy Unknown ON [place] Verified 08/09/18 22:57 VALLEY LIST sertraline Allergy Unknown ON [place] Verified 08/09/18 22:57 VAL[place] LIST diphenoxylate [From Lomotil] Allergy Unknown Unverified 08/09/18 22:57 Past Med/Surg History Medical History Ambulatory dysfunction (Acute) Back pain (Acute) Back pain of thoracolumbar region (Acute 04/25/14) Compression fracture of L1 lumbar vertebra (Acute) Compression fracture of L2 (Acute) Diarrhea (Acute) Displaced fracture of right femoral neck Fall (Acute) Gait instability (Acute 04/28/14) Hip pain, right (Acute) Infection of prosthetic hip joint Intractable back pain (Acute 04/28/14) Lumbar vertebral fracture (Acute) Spinal stenosis (Acute) UTI (urinary tract infection) (Acute) Weakness (Acute) Surgical History Hx of brain surgery Family History Other Family history non-contributory Social History Preferred Language: Khmer Current Living Situation: [facility] Feels Safe at Home: Yes Smoking Status: Never smoker Review of Systems See HPI for pertinent positives & negatives. and A total of 10 systems reviewed and were otherwise negative Physical Exam Vital Signs Vital Signs - 24 hr 08/09/18 20:55 08/09/18 20:58 08/09/18 21:00 Temperature Sepsis Recent Fever Within 48 Hours Sepsis Action Taken by Nursing Pulse Rate 121 H 120 H 117 H Pulse Rate from SpO2 Sensor 125 H 120 H Respiratory Rate 26 H 26 H 34 H Blood Pressure 179/98 H Blood Pressure Mean 125 Pulse Oximetry 92 Oxygen Delivery Method Oxygen Flow Rate 08/09/18 21:06 08/09/18 21:15 08/09/18 21:30 Temperature 36.5 C Sepsis Recent Fever Within 48 Hours No Sepsis Action Taken by Nursing No Action Required Pulse Rate 130 H 140 H Pulse Rate from SpO2 Sensor 113 H Respiratory Rate 34 H 33 H Blood Pressure Blood Pressure Mean Pulse Oximetry 96 97 Oxygen Delivery Method Nasal Cannula Nasal Cannula Oxygen Flow Rate 0 08/09/18 21:45 08/09/18 21:49 08/09/18 22:00 Temperature Sepsis Recent Fever Within 48 Hours Sepsis Action Taken by Nursing Pulse Rate 129 H 134 H 110 H Pulse Rate from SpO2 Sensor 112 H 112 H 112 H Respiratory Rate 34 H 27 H 31 H Blood Pressure 133/100 Blood Pressure Mean 111 Pulse Oximetry 96 95 97 Oxygen Delivery Method Oxygen Flow Rate 08/09/18 22:15 08/09/18 22:30 08/09/18 22:55 Temperature Sepsis Recent Fever Within 48 Hours Sepsis Action Taken by Nursing Pulse Rate 121 H Pulse Rate from SpO2 Sensor 113 H 81 77 Respiratory Rate 28 H 28 H Blood Pressure Blood Pressure Mean Pulse Oximetry 97 97 96 Oxygen Delivery Method Nasal Cannula Oxygen Flow Rate 08/09/18 22:57 08/09/18 23:00 Temperature Sepsis Recent Fever Within 48 Hours Sepsis Action Taken by Nursing Pulse Rate 80 80 Pulse Rate from SpO2 Sensor 81 81 Respiratory Rate 24 23 Blood Pressure 118/56 L 120/51 L Blood Pressure Mean 76 74 Pulse Oximetry 94 93 Oxygen Delivery Method Room Air Oxygen Flow Rate 4 CONSTITUTIONAL/VITAL SIGNS: Reviewed / noted above. GENERAL: Non-toxic in appearance. INTEGUMENTARY: Warm, dry, and [place]. HEAD: Normocephalic. EYES: without scleral icterus or trauma. ENT/OROPHARYNX: clear and moist. LYMPHADENOPATHY/NECK: Is supple without lymphadenopathy or meningismus. RESPIRATORY: Lungs clear and equal. CARDIOVASCULAR: Regular rate and rhythm. GI/ABDOMEN: Soft and nontender. No organomegaly or pulsatile mass. No rebound or guarding. Normal bowel sounds. EXTREMITIES: Warm and well perfused. BACK: No CVA tenderness. NEUROLOGICAL: Intact. Focal tonic movements of left leg and head. PSYCHIATRIC: normal affect. MUSCULOSKELETAL: Normally developed with good muscle tone. Course 2102: Past medical records reviewed. The patient was evaluated in room B11B, and a complete history and physical examination were performed. 2107: The nurse reports that the patients brother called and reported that the patient has a CERTIFIED SKI PATROLLER shunt. He stated that the patient seized before and it was due to a bleed in her CERTIFIED SKI PATROLLER shunt. 2223: I reevaluated the patient at this time. 2237: I reevaluated the patient at this time whose seizure has slowed down. 2330: I reviewed the patient's case with Dr. Tommy GOODRICH Neurology who agrees that the patient should be admitted to the hospital. 2333: I reevaluated the patient at this time. 0000: I reviewed the patient's case with Dr. Alexia Peguero [facility]. He will evaluate the patient for further management. Consultations Consultation #1: I reviewed the patient's case with Dr. Tommy GOODRICH Neurology who agrees that the patient should be admitted to the hospital. Time: 23:30 Consultation #2: I reviewed the patient's case with Dr. Alexia Peguero hospitaltrini. He will evaluate the patient for further management. Time: 00:00 Administered Medications Discontinued Medications Lorazepam (Ativan) 1 mg in 2 mls @ 2 mls/min IV NOW STA Stop: 08/09/18 21:06 Last Admin: 08/09/18 21:10 Dose: Not Given Documented by: [id number] Levetiracetam 1,000 mg/ (Dextrose) 110 mls @ 440 mls/hr IV NOW STA Stop: 08/09/18 21:19 Last Infusion: 08/09/18 21:35 Dose: 0 mls/hr Documented by: [id number] Admin: 08/09/18 21:20 Dose: 440 mls/hr Documented by: [id number] Fosphenytoin Sodium 1,000 mgpe (/ Sodium Chloride) 70 mls @ 420 mls/hr IV NOW STA Stop: 08/09/18 21:54 Last Infusion: 08/09/18 22:20 Dose: 0 mls/hr Documented by: [id number] Admin: 08/09/18 22:10 Dose: 420 mls/hr Documented by: [id number] Lorazepam (Ativan) Confirm Administered Dose 2 mg .ROUTE .STNew Leaf Paper-MED ONE Stop: 08/09/18 20:58 Last Admin: 08/09/18 21:01 Dose: 1 mg Documented by: [id number] Medical Decision Making Differential Diagnosis Differential diagnosis: Etiologies such as infection, hypoglycemia, electrolyte abnormalities, cardiac sources, intracerebral event, trauma, toxicologic, neurologic, as well as others were entertained. Medical Records Attestation: I reviewed the patient's medical records. Home Medications Current Medication List: was personally reviewed by me Laboratory Data Attestation: I reviewed the patient's lab results. Result diagrams: 08/09/18 20:27 08/09/18 20:27 Lab Results 08/09/18 08/09/18 08/09/18 Range/Units 20:27 20:27 21:24 WBC 8.95 (4.8-10.8) K/uL RBC 4.60 (4.2-5.4) M/uL Hgb 13.3 (12.0-16.0) g/dL Hct 41.1 (37-47) % MCV 89.3 (80-100) fL MCH 28.9 (25-34) pg MCHC 32.4 (32-36) g/dL RDW Std Deviation 47.9 H (36.4-46.3) fL RDW Coeff of Bladimir 14.6 H (11.5-14.5) % Plt Count 353 (130-400) K/uL MPV 10.2 (7.4-10.4) fL Immature Gran % (Auto) 0.2 % Neut % (Auto) 48.6 % Lymph % (Auto) 30.2 % [place] % (Auto) 11.3 % Eos % (Auto) 9.4 % Baso % (Auto) 0.3 % Immature Gran # (Auto) 0.02 (0.00-0.02) K/uL Neut # (Auto) 4.35 (1.4-6.5) K/uL Lymph # (Auto) 2.70 (1.2-3.4) K/uL [place] # (Auto) 1.01 H (0.11-0.59) K/uL Eos # (Auto) 0.84 H (0-0.5) K/uL Baso # (Auto) 0.03 (0-0.2) K/uL Sodium 139 (136-145) mmol/L Potassium 5.0 (3.5-5.1) mmol/L Chloride 104 (98-107) mmol/L Carbon Dioxide 29 (21-32) mmol/L Anion Gap 6.0 (3-11) BUN 22 H (7-18) mg/dl Creatinine 0.66 (0.6-1.2) mg/dl Est Cr Clr Drug Dosing Not Reportable Est GFR ( Amer) 91.4 Est GFR (Non-Af Amer) 78.9 BUN/Creatinine Ratio 33.2 H (10-20) Glucose 108 H (70-99) mg/dl POC Glucose 138 H (70-99) Calcium 9.6 (8.5-10.1) mg/dl Total Bilirubin 0.4 (0.2-1) mg/dl AST 10 L (15-37) U/L ALT 15 (12-78) U/L Alkaline Phosphatase 31 L (45-117) U/L Total Protein 8.1 (6.4-8.2) gm/dl Albumin 3.8 (3.4-5.0) gm/dl Globulin 4.3 H (2.5-4.0) gm/dl Albumin/Globulin Ratio 0.9 (0.9-2) Imaging Data Radiologist's Impression: Radiology results as stated below per my review and the radiologist's interpretation: CT head/brain wo con CLINICAL HISTORY: 88 years-old Female with sz. Acute seizure TECHNIQUE: Multiple axial CT images of the head were obtained without contrast. A dose lowering technique was utilized adhering to the principles of ALARA. CT DOSE: 614.27 mGy.cm COMPARISON: CT head 11/03/2017. FINDINGS: Age-related involutional changes. Ventriculomegaly redemonstrated, transverse dimension of the lateral ventricles measuring up to 5.4 cm, previously 5.3 cm. Right ventriculostomy catheter appears unchanged. White matter hypodensities suggestive of chronic microvascular ischemic change. Cerebral vascular calcifica tions also noted. No acute intracranial hemorrhage, midline shift, territorial ischemia, abnormal extra-axial collections or intracranial mass identified. Areas of encephalomalacia about the right frontal and parietal lobes, unchanged. The calvarium is intact. Mastoid air cells are clear. Mild mucosal thickening about the nasal turbinates and paranasal sinuses. Soft tissues and orbits appear unremarkable. Prior bilateral cataract repair. IMPRESSION: 1. No acute intracranial abnormality. 2. Chronic findings as above. The above report was generated using voice recognition software. It may contain grammatical, syntax or spelling errors. Electronically signed by: Damon Escoto M.D. 08/09/2018 11:07 PM ECG Data Attestation: I personally reviewed and interpreted this ECG as follows: Indication: other (Seizure) Rate (beats per minute): 78 Rhythm: sinus rhythm Findings: no ST elevation and no ectopy Blood Pressure Blood Pressure Findings: Low blood pressure Blood Pressure Disposition: further management by hospitalist JEANIE Boone This is an 88-year-old female who presents to the ED with a chief complaint of a focal seizure. The patient has history of this in the past. She is on Keppra. She has not missed any doses of her medication. She resides at a local nursing facility. The patient started having the symptoms around 8 PM tonight. She was given 1 mg of IV Ativan by EMS but this did not seem to help. The patient is awake, alert and oriented. She is able to speak. She has tonic movements to her left leg as well as some tonic movements causing her head to move to the left. She denies any chest pains or headaches or fevers or recent illness. No trauma. Her exam was otherwise unremarkable. A CT scan of the brain was negative for acute disease. Blood work including CBC and chemistry panel was unremarkable. The patient received a milligram of IV Ativan in route by EMS as well as 1 mg of IV Ativan here as the seizure continued. She was given 1 g of IV Keppra. The seizure continued. The patient was then given 1 g of IV fosphenytoin. The patient did stop seizing about 20 minutes or so after getting the fosphenytoin. I spoke with Dr. Cheney about the patient. She recommends admission. She recommended the Keppra being increased to 1500 mg twice daily and having a Dilantin level checked tomorrow. The patient will be seen by the hospitalist for further evaluation and care. 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 Prescriptions Prescriptions: No Action acetaminophen [Tylenol] 325 mg Tablet 325 - 650 mg PO Q4 MDD 3 GRAMS/24 HOURS PRN (Reason: Fever Or Pain) RF: 0 loperamide 2 mg Capsule 2 mg PO DIRECTED PRN (Reason: Diarrhea) RF: 0 hydrocodone-acetaminophen 5-325 mg Tablet 0.5 tab PO Q6H PRN (Reason: Pain) RF: 0 amoxicillin 500 mg Tablet 2,000 mg PO DIRECTED PRN (Reason: PRIOR TO DENTAL VISITS) RF: 0 hydrocortisone 1 % Cream 1 applic TOPICAL TID PRN (Reason: Itching) RF: 0 cyanocobalamin (vitamin B-12) 1,000 mcg/mL Solution 1,000 mcg IM MONTHLY RF: 0 bismuth subsalicylate [Kaopectate (bismuth subsalicy)] 262 mg/15 mL Suspension 30 ml PO UD MDD 8x/day PRN (Reason: Diarrhea) RF: 0 omeprazole 20 mg Capsule,Delayed Release(Dr/Ec) 20 mg PO DAILY RF: 0 zolpidem [Ambien] 5 mg Tablet 5 mg PO HS PRN (Reason: Sleep) RF: 0 polyethylene glycol 3350 [Miralax] 17 gram/dose Powder 17 g PO DAILY PRN (Reason: Constipation) RF: 0 duloxetine 30 mg Capsule,Delayed Release(Dr/Ec) 30 mg PO DAILY RF: 0 Calcium 600 + D(3) 600 mg calcium- 200 unit Capsule 1 tab PO BID RF: 0 cholecalciferol (vitamin D3) [Vitamin D3] 2,000 unit Capsule 2,000 unit PO DAILY RF: 0 Metamucil 3.4 gram/5.4 gram Powder 1 tbsp PO DAILY PRN (Reason: Constipation) RF: 0 levetiracetam 1,000 mg Tablet 1,000 mg PO BID RF: 0 PreserVision AREDS-2 [id number] [id number]-mg Capsule 1 tab PO BID RF: 0 cranberry extract [Cranberry Concentrate] 500 mg Capsule 1,500 mg PO DAILY RF: 0 diphenhydramine-acetaminophen [Pain Reliever PM] 25-500 mg Tablet 1 - 2 tab PO HS PRN (Reason: Pain) RF: 0 Referrals Referrals: Jefferson Chaney [Primary Care Provider] - The scribe's documentation has been prepared under my direction and personally reviewed by me in its entirety. I confirm that the note above accurately reflects all work, treatment, procedures, and medical decision making performed by me.
[2018-08-09 21:27] LABS: Alanine Aminotransferase 15 U/L (12-78); Albumin Level 3.8 gm/dl (3.4-5.0); Aspartate Aminotransferase 10 U/L (15-37); BUN Creatinine Ratio 33.2 (10-20); Blood Urea Nitrogen 22 mg/dl (7-18); Calcium 9.6 mg/dl (8.5-10.1); Carbon Dioxide 29 mmol/L (21-32); Chloride 104 mmol/L (98-107); Est GFR (African American) 91.4; Est GFR (Non-African American) 78.9; Glucose 108 mg/dl (70-99); Sodium 139 mmol/L (136-145)
[2018-08-09 21:30] LABS: Albumin Globulin Ratio 0.9 (0.9-2); Alkaline Phosphatase 31 U/L (45-117); Bilirubin,Total 0.4 mg/dl (0.2-1); Globulin 4.3 gm/dl (2.5-4.0); Total Protein 8.1 gm/dl (6.4-8.2)
[2018-08-09] MEDS ORDERED: FOSPHENYTOIN 1,000 MGPE in SODIUM CHLORIDE 0.9% 50 ML IV STA (21:45)
--- NOTE | 2018-08-09 23:08 | CT Scan Report ---
CT head/brain wo con CLINICAL HISTORY: 88 years-old Female with sz. Acute seizure TECHNIQUE: Multiple axial CT images of the head were obtained without contrast. A dose lowering tech nique was utilized adhering to the principles of ALARA. CT DOSE: 614.27 mGy.cm COMPARISON: CT head 11/03/2017. FINDINGS: Age-related involutional changes. Ventriculomegaly redemonstrated, transverse dimension of the latera l ventricles measuring up to 5.4 cm, previously 5.3 cm. Right ventriculostomy catheter appears unchan ged. White matter hypodensities suggestive of chronic microvascular ischemic change. Cerebral vascula r calcifications also noted. No acute intracranial hemorrhage, midline shift, territorial ischemia, a bnormal extra-axial collections or intracranial mass identified. Areas of encephalomalacia about the right frontal and parietal lobes, unchanged. The calvarium is intact. Mastoid air cells are clear. Mild mucosal thickening about the nasal turbin ates and paranasal sinuses. Soft tissues and orbits appear unremarkable. Prior bilateral cataract rep air. IMPRESSION: 1. No acute intracranial abnormality. 2. Chronic findings as above. The above report was generated using voice recognition software. It may contain grammatical, syntax o r spelling errors. Electronically signed by: Damon Escoto M.D. 08/09/2018 11:07 PM
[2018-08-10 01:41] LABS: NT Pro B Type Natriuretic Pept 89 pg/ml (0-1800)
--- NOTE | 2018-08-10 01:47 | History & Physical Report ---
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 Feliciano who recommends increasing maintenance Keppra to 1500 mg p.o. twice daily for now.) Monitor BP, initiate Norvasc if BP continues to be elevated (ACEI contraindicated for now given borderline hyperkalemia) Check hemoglobin A1C DVT prophylaxis. Lovenox subcu DNR as per patient's previous wishes as per son/POA, Mr. Teja Avila. He requests updates from providers thru [phone]. ADDENDUM : UA noted to have WBC esterase Change to full admission for possible complicated UTI. IV Zosyn for now given hx Enterococcus, E. coli on previous urine cultures. History of Present Illness Chief Complaint: Seizures Primary Care Provider: Jefferson Chaney History obtained from patient, family, and records. Limited history from patient secondary to postictal state. Medical history significant for seizure disorder, history traumatic intracranial hemorrhage (2016), NPH status post CANE PUSHER shunt surgery (04/2017 at [facility]), history of PE status post anticoagulation, hyperparathyroidism status post parathyroidectomy. Patient confined at [facility] April 2017 for L sided weakness and seizure- like activity attributed to R intracranial hemorrhage attributed to trauma fo llowing fall from bed. Patient discharged on Keppra for seizure prophylaxis. Keppra discontinued during subsequent rehab stay as per records. Recent confinement [facility] September 2017 for breakthrough seizures. Keppra restarted on discharge. As per records, patient noted to have focal seizure, head shaking to the left, left arm and leg shaking around dinnertime last night. No recent changes with home AED medication as per records. Patient completed prophylactic Tamiflu course after a sick resident tested for positive flu at the personal [facility]. Patient denies chest pain, S OB, cough, dysuria, diarrhea symptoms. Patient still seizing after receiving doses of Ativan en route to the ER. Seizure terminated after IV Keppra and IV Fosphenytoin administered. 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 Allergies Allergy/AdvReac Type Severity Reaction Status Date / Time atropine Allergy Unknown ON SILETZ TRIBE Verified 08/09/18 22:57 VALLEY LIST citalopram Allergy Unknown ON SILETZ TRIBE Verified 08/09/18 22:57 VALLEY LIST fluoxetine Allergy Unknown ON SILETZ TRIBE Verified 08/09/18 22:57 VALLEY LIST paroxetine Allergy Unknown ON SILETZ TRIBE Verified 08/09/18 22:57 VALLEY LIST sertraline Allergy Unknown ON SILETZ TRIBE Verified 08/09/18 22:57 VALLEY LIST diphenoxylate [From Lomotil] Allergy Unknown Unverified 08/09/18 22:57 Home Medications Home Medications Medication Instructions Recorded Confirmed Type acetaminophen [Tylenol] 325 - 650 mg PO Q4 PRN MDD 3 04/13/18 08/09/18 History GRAMS/24 HOURS amoxicillin 2,000 mg PO DIRECTED PRN 04/13/18 08/09/18 History bismuth subsalicylate [Kaopectate 30 ml PO UD PRN MDD 8x/day 04/13/18 08/09/18 History (bismuth subsalicy)] calcium carbonate-vitamin D3 1 tab PO BID 04/13/18 08/09/18 History [Calcium 600 + D(3)] cholecalciferol (vitamin D3) 2,000 unit PO DAILY 04/13/18 08/09/18 History [Vitamin D3] cyanocobalamin (vitamin B-12) 1,000 mcg IM MONTHLY 04/13/18 08/09/18 History duloxetine 30 mg PO DAILY 04/13/18 08/09/18 History hydrocodone-acetaminophen 0.5 tab PO Q6H PRN 04/13/18 08/09/18 History hydrocortisone 1 applic TOPICAL TID PRN 04/13/18 08/09/18 History loperamide 2 mg PO DIRECTED PRN 04/13/18 08/09/18 History omeprazole 20 mg PO DAILY 04/13/18 08/09/18 History polyethylene glycol 3350 [Miralax] 17 g PO DAILY PRN 04/13/18 08/09/18 History psyllium husk [Metamucil] 1 tbsp PO DAILY PRN 04/13/18 08/09/18 History zolpidem [Ambien] 5 mg PO HS PRN 04/13/18 08/09/18 History cranberry extract [Cranberry 1,500 mg PO DAILY 07/09/18 08/09/18 History Concentrate] levetiracetam 1,000 mg PO BID 07/09/18 08/09/18 History vit C,D-Qf-ypctf-lutein-zeaxan 1 tab PO BID 07/09/18 08/09/18 History [PreserVision AREDS-2] diphenhydramine-acetaminophen 1 - 2 tab PO HS PRN 07/18/18 08/09/18 History [Pain Reliever PM] Past Med/Surg History Medical History Ambulatory dysfunction (Acute) Back pain (Acute) Back pain of thoracolumbar region (Acute 04/25/14) Compression fracture of L1 lumbar vertebra (Acute) Compression fracture of L2 (Acute) Diarrhea (Acute) Displaced fracture of right femoral neck Fall (Acute) Gait instability (Acute 04/28/14) Hip pain, right (Acute) Infection of prosthetic hip joint Intractable back pain (Acute 04/28/14) Lumbar vertebral fracture (Acute) Spinal stenosis (Acute) UTI (urinary tract infection) (Acute) Weakness (Acute) Surgical History Hx of brain surgery Family History Other Family history non-contributory Social History Preferred Language: Khmer Communication Ability: Effective Bottling Attendant Required: No Beliefs That Will Affect Care: None Current Living Situation: Personal Care Facility Feels Safe at Home: Yes Safety Concerns: Feels Safe At This Time Smoking Status: Never smoker Hx Alcohol Use: No Hx Substance Use: No Review of Systems Could not be reliably obtained Physical Exam Vital Signs (Past 24 Hours): Last Vital Signs Temp 36.5 C 08/09/18 21:15 Pulse 82 08/10/18 01:00 Resp 23 08/10/18 01:00 BP 158/77 H 08/10/18 01:00 Pulse Ox 92 08/10/18 01:00 Physical Exam: GENERAL: Comfortable, lethargic, no respiratory distress SKIN: Normal color, warm HEENT: [place] palpebral conjunctivae, no ptosis, dry buccal mucosa NECK : Supple, no tenderness CHEST : CTA, no tenderness HEART : RRR, no obvious murmurs ABDOMEN: Some distention, nontender EXTREMITIES : No LE swelling/tenderness, no other conspicuous deformities noted NEUROLOGIC : Lethargic, no facial asymmetry, no other gross focality Results & Data Laboratory Results Laboratory Results WBC 8.95 K/uL (4.8-10.8) 08/09/18 20:27 RBC 4.60 M/uL (4.2-5.4) 08/09/18 20:27 Hgb 13.3 g/dL (12.0-16.0) 08/09/18 20: Hct 41.1 % (37-47) 08/09/18 20: MCV 89.3 fL (80-100) 08/09/18 20: MCH 28.9 pg (25-34) 08/09/18 20: MCHC 32.4 g/dL (32-36) 08/09/18 20:27 RDW Std Deviation 47.9 fL (36.4-46.3) H 08/09/18 20:27 RDW Coeff of Bladimir 14.6 % (11.5-14.5) H 08/09/18 20: Plt Count 353 K/uL (130-400) 08/09/18 20: MPV 10.2 fL (7.4-10.4) 08/09/18 20:27 Immature Gran % (Auto) 0.2 % 08/09/18 20:27 Neut % (Auto) 48.6 % 08/09/18 20:27 Lymph % (Auto) 30.2 % 08/09/18 20:27 Slope % (Auto) 11.3 % 08/09/18 20:27 Eos % (Auto) 9.4 % 08/09/18 20:27 Baso % (Auto) 0.3 % 08/09/18 20:27 Immature Gran # (Auto) 0.02 K/uL (0.00-0.02) 08/09/18 20:27 Neut # (Auto) 4.35 K/uL (1.4-6.5) 08/09/18 20:27 Lymph # (Auto) 2.70 K/uL (1.2-3.4) 08/09/18 20:27 Slope # (Auto) 1.01 K/uL (0.11-0.59) H 08/09/18 20:27 Eos # (Auto) 0.84 K/uL (0-0.5) H 08/09/18 20:27 Baso # (Auto) 0.03 K/uL (0-0.2) 08/09/18 20:27 Sodium 139 mmol/L (136-145) 08/09/18 20:27 Potassium 5.0 mmol/L (3.5-5.1) 08/09/18 20:27 Chloride 104 mmol/L (98-107) 08/09/18 20:27 Carbon Dioxide 29 mmol/L (21-32) 08/09/18 20:27 Anion Gap 6.0 (3-11) 08/09/18 20:27 BUN 22 mg/dl (7-18) H 08/09/18 20:27 Creatinine 0.66 mg/dl (0.6-1.2) 08/09/18 20:27 Est Cr Clr Drug Dosing Not Reportable 08/09/18 20:27 Est GFR ( Amer) 91.4 08/09/18 20:27 Est GFR (Non-Af Amer) 78.9 08/09/18 20:27 BUN/Creatinine Ratio 33.2 (10-20) H 08/09/18 20:27 Glucose 108 mg/dl (70-99) H 08/09/18 20:27 POC Glucose 138 (70-99) H 08/09/18 21:24 Calcium 9.6 mg/dl (8.5-10.1) 08/09/18 20:27 Magnesium 2.0 mg/dl (1.8-2.4) 08/09/18 20:27 Total Bilirubin 0.4 mg/dl (0.2-1) 08/09/18 20:27 AST 10 U/L (15-37) L 08/09/18 20:27 ALT 15 U/L (12-78) 08/09/18 20:27 Alkaline Phosphatase 31 U/L (45-117) L 08/09/18 20:27 NT-Pro-B Natriuret Pep 89 pg/ml (0-1800) 08/09/18 20:27 Total Protein 8.1 gm/dl (6.4-8.2) 08/09/18 20:27 Albumin 3.8 gm/dl (3.4-5.0) 08/09/18 20: Globulin 4.3 gm/dl (2.5-4.0) H 08/09/18 20:27 Albumin/Globulin Ratio 0.9 (0.9-2) 08/09/18 20: TSH 8.410 uIu/ml (0.300-4.500) H 08/09/18 20:[address] head: Age-related involutional changes. Ventriculomegaly redemonstrated, transverse dimension of the lateral ventricles measuring up to 5.4 cm, previously 5.3 cm. Right ventriculostomy catheter appears unchanged. White matter hypodensities suggestive of chronic microvascular ischemic change. Cerebral vascular calcifications also noted. No acute intracranial hemorrhage, midline shift, territorial ischemia, abnormal extra-axial collections or intracranial mass identified. Areas of encephalomalacia about the right frontal and parietal lobes, unchanged. The calvarium is intact. Mastoid air cells are clear. Mild mucosal thickening about the nasal turbinates and paranasal sinuses. Soft tissues and orbits appear unremarkable. Prior bilateral cataract repair. Chest x-ray as per my interpretation: Chronic interstitial changes
[2018-08-10 01:53] LABS: T4 Free Thyroxine 0.84 ng/dl (0.8-1.6)
[2018-08-10] MEDS ORDERED: SODIUM CHLORIDE 0.9% 1000ML 1,000 ML IV STA (02:01)
[2018-08-10 02:36] LABS: HCO3 ABG 27 mmol/L (19-24); Oxygen Saturation ABG 96.1 % (90-95); PCO2 ABG 41 mmHg (35-46); PO2 ABG 82 mm/Hg (80-95); pH ABG 7.44 (7.35-7.45)
[2018-08-10 02:37] LABS: Allen Test Pos (Pos)
[2018-08-10] MEDS ORDERED: PROCHLORPERAZINE 5 MG in SYRINGE 4 ML IV PRN (03:04)
[2018-08-10] MEDS ORDERED: POLYETHYLENE (MIRALAX) 17 GM PACK PO PRN (03:04)
[2018-08-10] MEDS ORDERED: HYDROCODONE/ACETAMOPHEN 5/325MG TAB PO PRN (03:04)
[2018-08-10] MEDS ORDERED: LORazepam 1 MG/2 ML VIAL IV PRN (03:04)
[2018-08-10] MEDS ORDERED: NITROGLYCERIN SL 0.4 MG/TAB TAB SL PRN (03:04)
[2018-08-10 03:38] LABS: Basophils # (auto) 0.03 K/uL (0-0.2); Basophils % (auto) 0.4 %; Eosinophils # (auto) 0.29 K/uL (0-0.5); Eosinophils % (auto) 3.5 %; Hematocrit (blood only) 38.3 % (37-47); Hemoglobin 12.5 g/dL (12.0-16.0); Immature Granulocytes # (auto) 0.01 K/uL (0.00-0.02); Immature Granulocytes % (auto) 0.1 %; Lymphocytes # (auto) 1.51 K/uL (1.2-3.4); Lymphocytes % (auto) 18.1 %; Mean Corpuscular Hgb Conc 32.6 g/dL (32-36); Mean Corpuscular Volume 87.2 fL (80-100); Mean Platelet Volume 9.8 fL (7.4-10.4); Monocytes # (auto) 0.67 K/uL (0.11-0.59); Neutrophils # (auto) 5.85 K/uL (1.4-6.5); Neutrophils % (auto) 69.9 %; Platelet Count 304 K/uL (130-400); RDW Coefficient of Variation 14.4 % (11.5-14.5); RDW Standard Deviation 46.1 fL (36.4-46.3); Red Blood Count 4.39 M/uL (4.2-5.4); White Blood Count 8.36 K/uL (4.8-10.8)
[2018-08-10 04:02] LABS: BUN Creatinine Ratio 27.7 (10-20); Calcium 8.5 mg/dl (8.5-10.1); Creatinine Clr Calc Pharmacy 56.4 ml/min; Est GFR (African American) 91.4; Est GFR (Non-African American) 78.9; Potassium 4.1 mmol/L (3.5-5.1)
[2018-08-10 05:34] LABS: Appearance Urine Cloudy (Clear); Bacteria Urine Automated Negative (Negative); Bilirubin Urine Negative (Negative); Blood Urine Trace (Negative); Color Urine Yellow; Epithelial Cell Urine Auto 0-5 /lpf (0-5); Glucose Urine UA Negative (Negative); Ketones Urine Negative (Negative); Leukocyte Esterase Urine 3+ (Negative); Nitrite Urine Negative (Negative); Protein Urine Negative (Negative); RBC Urine Automated 0-4 /hpf (0-4); Specific Gravity Urine 1.012 (1.000-1.030); Urobilinogen Urine Negative (Negative); WBC Urine Automated >30 /hpf (0-5); pH Urine 7.5 (4.5-7.5)
[2018-08-10] MEDS ORDERED: PIPERACILL/TAZOBAC CONSULT ACTIVE PRN (06:12)
[2018-08-10] MEDS ORDERED: PIPERACILLIN/TAZOBACTAM 3.375 GM in DEXTROSE 5% 100 ML IV STA (06:30)
--- NOTE | 2018-08-10 06:31 | XRay Report ---
XR chest 1V portable CLINICAL HISTORY: low o2 hypoxia COMPARISON STUDY: 07/09/2018 FINDINGS: Poor inspiratory volumes. Chronic interstitial and fibrotic change throughout both hemithor aces. No acute infiltrate. Diaphragms are smooth. IMPRESSION: Chronic change. No acute process. The above report was generated using voice recognition software. It may contain grammatical, syntax or spelling errors. Electronically signed by: Christian Bonilla M.D. 08/10/2018 6:30 AM
[2018-08-10 07:14] LABS: Estimated Average Glucose 117 mg/dl; Hemoglobin A1C 5.7 % (4.5-5.6)
[2018-08-10] MEDS: DULOXETINE HCL 30 MG CAP PO SCH (08:21)
[2018-08-10] MEDS: levETIRAcetam 500 MG TAB PO SCH ×2 (08:22→20:38)
[2018-08-10] MEDS: PANTOprazole 40 MG TAB PO SCH (08:22)
[2018-08-10 08:52] LABS: Partial Thromboplastin Ratio 1.1; Partial Thromboplastin Time 28.5 Seconds (21.0-31.0)
--- NOTE | 2018-08-10 09:12 | Hospitalist Progress Note ---
Date of Service August 10, 2018 Assessment & Plan (1) Breakthrough seizure: hx seizure disorder on Keppra hx traumatic intracranial hemorrhage 2017 CT head no acute changes Neurologist Dr. Cheney consulted Recommend to increase Keppra to 1500 mg twice a day Hold off on Dilantin Monitor response Possible UTI History of enterococcus, E. 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 Teja Avila. Discussed case with patient and his son Mr. Teja Avila they are comfortable and agreeable with plan of care Subjective ff up for breakthrough seizures Patient seen resting, comfortable States she feels tired Oriented x2 answers Most questions appropriately Denies headache, dizziness, chest pain, shortness of breath, abdominal pain Reports urinary incontinence which is chronic Denies dysuria, nausea No other symptoms Physical Exam Vital Signs (Past 24 Hours): Last Vital Signs Temp 36.5 C 08/10/18 07:44 Pulse 55 L 08/10/18 07:44 Resp 16 08/10/18 07:44 BP 144/66 H 08/10/18 07:44 Pulse Ox 92 08/10/18 07:44 Physical Exam: General- oriented x 2, not in distress, speaks in sentences with no effort or accessory muscle use Somewhat weak Eyes- anicteric Neck- no JVD Lungs- clear breath sounds bilaterally, no rales/wheezes Heart- normal rate, regular rhythm; no murmurs Abdomen- normal bowel sounds, nondistended, soft, nontender Extremities- no pretibial edema, no calf tenderness Neuro- alert, oriented x 2; no gross focal neurologic deficits Skin- warm & dry Results & Data Laboratory Results Laboratory Results - last 24 hr 08/09/18 08/09/18 08/09/18 20:27 20:27 21:13 WBC 8.95 RBC 4.60 Hgb 13.3 Hct 41.1 MCV 89.3 MCH 28.9 MCHC 32.4 RDW Std Deviation 47.9 H RDW Coeff of Baldimir 14.6 H Plt Count 353 MPV 10.2 Immature Gran % (Auto) 0.2 Neut % (Auto) 48.6 Lymph % (Auto) 30.2 Pepin % (Auto) 11.3 Eos % (Auto) 9.4 Baso % (Auto) 0.3 Immature Gran # (Auto) 0.02 Neut # (Auto) 4.35 Lymph # (Auto) 2.70 Pepin # (Auto) 1.01 H Eos # (Auto) 0.84 H Baso # (Auto) 0.03 APTT PTT Ratio ABG pH ABG pCO2 ABG pO2 ABG HCO3 ABG O2 Saturation ABG Base Excess Nicolás Test Barometric Pressure Oxygen Given Sodium 139 Potassium 5.0 Chloride 104 Carbon Dioxide 29 Anion Gap 6.0 BUN 22 H Creatinine 0.66 Est Cr Clr Drug Dosing Not Reportable Est GFR ( Amer) 91.4 Est GFR (Non-Af Amer) 78.9 BUN/Creatinine Ratio 33.2 H Glucose 108 H POC Glucose Estimat Average Glucose 117 Hemoglobin A1c 5.7 H Calcium 9.6 Magnesium 2.0 Total Bilirubin 0.4 AST 10 L ALT 15 Alkaline Phosphatase 31 L Total Creatine Kinase NT-Pro-B Natriuret Pep 89 Total Protein 8.1 Albumin 3.8 Globulin 4.3 H Albumin/Globulin Ratio 0.9 TSH 8.410 H Free T4 0.84 Total T3 Urine Color Urine Appearance Urine pH Ur Specific [place] Urine Protein Urine Glucose (UA) Urine Ketones Urine Blood Urine Nitrite Urine Bilirubin Urine Urobilinogen Ur Leukocyte Esterase Urine WBC (Auto) Urine RBC (Auto) U Hyaline Cast (Auto) U Epithel Cells (Auto) Urine Bacteria (Auto) Phenytoin 08/09/18 08/10/18 08/10/18 21:24 02:20 03:25 WBC RBC Hgb Hct MCV MCH MCHC RDW Std Deviation RDW Coeff of Bladimir Plt Count MPV Immature Gran % (Auto) Neut % (Auto) Lymph % (Auto) Pep[place] % (Auto) Eos % (Auto) Baso % (Auto) Immature Gran # (Auto) Neut # (Auto) Lymph # (Auto) Pepin # (Auto) Eos # (Auto) Baso # (Auto) APTT PTT Ratio ABG pH 7.44 ABG pCO2 41 ABG pO2 82 ABG HCO3 27 H ABG O2 Saturation 96.1 H ABG Base Excess 2.6 H Nicolás Test Pos Barometric Pressure 732.6 Oxygen Given Room Air Sodium 139 Potassium 4.1 D Chloride 105 Carbon Dioxide 28 Anion Gap 6.0 BUN 18 Creatinine 0.66 Est Cr Clr Drug Dosing 56.4 Est GFR ( Amer) 91.4 Est GFR (Non-Af Amer) 78.9 BUN/Creatinine Ratio 27.7 H Glucose 108 H POC Glucose 138 H Estimat Average Glucose Hemoglobin A1c Calcium 8.5 Magnesium Total Bilirubin AST ALT Alkaline Phosphatase Total Creatine Kinase 457 H NT-Pro-B Natriuret Pep Total Protein Albumin Globulin Albumin/Globulin Ratio TSH Free T4 Total T3 Urine Color Urine Appearance Urine pH Ur Specific [place] Urine Protein Urine Glucose (UA) Urine Ketones Urine Blood Urine Nitrite Urine Bilirubin Urine Urobilinogen Ur Leukocyte Esterase Urine WBC (Auto) Urine RBC (Auto) U Hyaline Cast (Auto) U Epithel Cells (Auto) Urine Bacteria (Auto) Phenytoin 08/10/18 08/10/18 08/10/18 03:25 03:25 05:15 WBC 8.36 RBC 4.39 Hgb 12.5 Hct 38.3 MCV 87.2 MCH 28.5 MCHC 32.6 RDW Std Deviation 46.1 RDW Coeff of Bladimir 14.4 Plt Count 304 MPV 9.8 Immature Gran % (Auto) 0.1 Neut % (Auto) 69.9 Lymph % (Auto) 18.1 Pepin % (Auto) 8.0 Eos % (Auto) 3.5 Baso % (Auto) 0.4 Immature Gran # (Auto) 0.01 Neut # (Auto) 5.85 Lymph # (Auto) 1.51 Pepin # (Auto) 0.67 H Eos # (Auto) 0.29 Baso # (Auto) 0.03 APTT PTT Ratio ABG pH ABG pCO2 ABG pO2 ABG HCO3 ABG O2 Saturation ABG Base Excess Nicolás Test Barometric Pressure Oxygen Given Sodium Potassium Chloride Carbon Dioxide Anion Gap BUN Creatinine Est Cr Clr Drug Dosing Est GFR ( Amer) Est GFR (Non-Af Amer) BUN/Creatinine Ratio Glucose POC Glucose Estimat Average Glucose Hemoglobin A1c Calcium Magnesium Total Bilirubin AST ALT Alkaline Phosphatase Total Creatine Kinase NT-Pro-B Natriuret Pep Total Protein Albumin Globulin Albumin/Globulin Ratio TSH Free T4 Total T3 Urine Color Yellow Urine Appearance Cloudy H Urine pH 7.5 Ur Specific [place] 1.012 Urine Protein Negative Urine Glucose (UA) Negative Urine Ketones Negative Urine Blood Trace H Urine Nitrite Negative Urine Bilirubin Negative Urine Urobilinogen Negative Ur Leukocyte Esterase 3+ H Urine WBC (Auto) >30 H Urine RBC (Auto) 0-4 U Hyaline Cast (Auto) 1-5 U Epithel Cells (Auto) 0-5 Urine Bacteria (Auto) Negative Phenytoin 21.9 H 08/10/18 08/10/18 05:32 08:22 WBC RBC Hgb Hct MCV MCH MCHC RDW Std Deviation RDW Coeff of Bladimir Plt Count MPV Immature Gran % (Auto) Neut % (Auto) Lymph % (Auto) Pepin % (Auto) Eos % (Auto) Baso % (Auto) Immature Gran # (Auto) Neut # (Auto) Lymph # (Auto) Pepin # (Auto) Eos # (Auto) Baso # (Auto) APTT 28.5 PTT Ratio 1.1 ABG pH ABG pCO2 ABG pO2 ABG HCO3 ABG O2 Saturation ABG Base Excess Nicolás Test Barometric Pressure Oxygen Given Sodium Potassium Chloride Carbon Dioxide Anion Gap BUN Creatinine Est Cr Clr Drug Dosing Est GFR ( Amer) Est GFR (Non-Af Amer) BUN/Creatinine Ratio Glucose POC Glucose Estimat Average Glucose Hemoglobin A1c Calcium Magnesium Total Bilirubin AST ALT Alkaline Phosphatase Total Creatine Kinase NT-Pro-B Natriuret Pep Total Protein Albumin Globulin Albumin/Globulin Ratio TSH Free T4 Total T3 0.68 Urine Color Urine Appearance Urine pH Ur Specific [place] Urine Protein Urine Glucose (UA) Urine Ketones Urine Blood Urine Nitrite Urine Bilirubin Urine Urobilinogen Ur Leukocyte Esterase Urine WBC (Auto) Urine RBC (Auto) U Hyaline Cast (Auto) U Epithel Cells (Auto) Urine Bacteria (Auto) Phenytoin
[2018-08-10] MEDS: ACETAMINOPHEN 325 MG TAB PO PRN (10:01)
[2018-08-10] MEDS: ENOXAPARIN INJ 30 MG/0.3 ML SYR SQ SCH (10:02)
--- NOTE | 2018-08-10 10:36 | Progress Note ---
DATE: 08/10/2018 REASON FOR CONSULTATION: Focal motor status epilepticus. HISTORY OF PRESENT ILLNESS: The patient is an 88-year-old right-handed female with a history of NPH, status post SET UP MACHINIST shunt. There is a report of a traumatic intracranial hemorrhage in 2016. I believe at that time, she had already been shunted. She was prophylactically placed on Keppra, which was discontinued I believe approximately 04/2017. In the spring, she presented in focal motor status, having not been on any anticonvulsants. By report, she was transferred to [facility] and this required Keppra loading, Dilantin loading and/or fosphenytoin loading and perhaps some Ativan. She was managed on Keppra 1000 mg b.i.d. with her last level being as an outpatient, I believe being 23, which is therapeutic. She has been in her usual state of health. No medications have been missed. She denies any new medications. She presented with multiple focal motor seizures affecting the left arm and leg. The patient indicates that she was aware that they had begun. It is unclear to me how long these seizures lasted. They did require intravenous Keppra followed by intravenous Dilantin, after which the seizures resolved. The patient says she feels somewhat funny today. She denies a headache. She notes the weakness that we see on exam preceeded the seizure. PAST MEDICAL HISTORY: As above including seizure; intracranial hemorrhage; NPH, status post SET UP MACHINIST shunt, shunt is managed by Dr. Britt; history of PE post anticoagulation; hyperparathyroidism; the patient by report has only recently finished prophylactic course of Tamiflu after one of the residents in the long term tested positive for flu; compression of L1 and L2; history of right femoral neck fracture; infection of prosthetic hip joint; intractable back pain; history of UTI. ALLERGIES: ATROPINE, CELEXA, FLUOXETINE, PAROXETINE, SERTRALINE AND LOMOTIL. CURRENT MEDICATIONS: Tylenol, amoxicillin , calcium, vitamin D, B12, duloxetine, hydrocodone, Tylenol, hydrocortisone cream, loperamide, omeprazole, MiraLax, Metamucil, Ambien, cranberry extract. The patient's home dose of Keppra was 1000 b.i.d., she is currently on 1500 b.i.d. Vitamin C, PreserVision and diphenhydramine/acetaminophen. PAST SURGICAL HISTORY: As above. FAMILY HISTORY: Should be noncontributory. SOCIAL HISTORY: The patient lives in long term. Nonsmoker, nondrinker. LABORATORY DATA: On admission, white count, H and H are normal. PTT 28.5. Blood gas: 7.44, 41 and 82. Chemistry profile notable for glucose of 108, BUN/creatinine ratio of 27.7, calcium of 8.5. CK 457. Urinalysis: 3+ leukocyte esterase, greater than 30 white cells, urine bacteria negative. Her Dilantin level this morning is 21.9, negative for flu. CT of the head, noncontrast: No acute abnormality. Ventriculomegaly redemonstrated diameter of the lateral ventricles measure up to 5.4, previously 5.3 cm. Right ventriculostomy catheter unchanged. White matter hypodensities consistent with chronic microvascular ischemic changes, cerebral vascular calcifications. Areas of encephalomalacia right frontal and parietal lobe, unchanged. PHYSICAL EXAMINATION: VITAL SIGNS: 144/66, 65, 16, 36.5, 92. NEUROLOGIC: The patient is awake and alert, knows she is at [facility]. Knows that it is August, but thinks it is 1998. No right/left confusion. There are no carotid bruits. No heart murmurs. Pupils are equal, grossly the optic nerves were normal. There were normal myers, motility. There is a slight flattening of the left nasolabial fold. There is no evidence of tongue laceration or biting. There is mild increased tone in the left upper. Left upper is probably 3+. Left lower about 4+. Right-sided full. Reflexes are diminished . Left toe is up, right toe is down. Vibration sense is present at the ankles. [id number] is limited on the left. Sensory examination as above. IMPRESSION: Breakthrough seizure, simple partial status query of threshold lowered by urinary tract infection. PLAN: At present, I would continue Keppra 1500 b.i.d. I think it is appropriate given that the seizures stopped to just allow the Dilantin level to drift down. If she were to have recurrent seizures, we could restart the Dilantin. She had some mild itching of her scalp. No rash. Monitor for any more generalized pruritus which could indicate a Dilantin allergy. I do not think the patient needs any additional imaging. We will follow with you. [facility]
[2018-08-10] MEDS: PIPERACILLIN/TAZOBACTAM 3.375 GM in DEXTROSE 5% 100 ML IV SCH ×2 (13:07→20:37)
[2018-08-11] MEDS: PIPERACILLIN/TAZOBACTAM 3.375 GM in DEXTROSE 5% 100 ML IV SCH ×3 (04:08→20:12)
[2018-08-11 07:41] LABS: Creatinine Clr Calc Pharmacy 53.1 ml/min; Est GFR (African American) 91.4; Est GFR (Non-African American) 78.9
[2018-08-11] MEDS: levETIRAcetam 500 MG TAB PO SCH ×2 (08:19→20:12)
[2018-08-11] MEDS: PANTOprazole 40 MG TAB PO SCH (08:20)
[2018-08-11] MEDS: DULOXETINE HCL 30 MG CAP PO SCH (08:20)
[2018-08-11] MEDS: ENOXAPARIN INJ 30 MG/0.3 ML SYR SQ SCH (08:21)
--- NOTE | 2018-08-11 12:25 | Progress Note ---
DATE: 08/11/2018 SUBJECTIVE: I am seeing the patient in followup of focal motor status epilepticus. She has not had any recurrent episodes, having received Ativan, additional Keppra and Dilantin. She remains mildly itchy on her scalp, but has no rash and no other itching. Her son indicates that her skin is often dry. OBJECTIVE: She is awake and oriented to place. I do not see any rash on the trunk or arms. There is some mild horizontal nystagmus on the extremes of gaze. There is a mild flattening of the left nasolabial fold. Upper extremities seemed symmetric as do lower, although I cannot exclude a small amount of left-sided weakness. IMPRESSION AND PLAN: This patient has a history of shunting for NPH. After that, she had a fall with an intracranial hemorrhage and then had secondary seizures. She presented with focal motor status, which has done well on a Keppra bolus, dilantin loading as well as a higher dose of Keppra 1500 b.i.d. I would gradually let the Dilantin decline and not continue Dilantin at this point unless the recurrent seizures. I do not see any evidence of the itching on her scalp represents an allergic response. I did discuss that as well with her son. The patient from a neurologic perspective can be discharged.. I would recommend checking a Keppra level in 10 days and having her follow up with Dr. Ryder or Katelyn Berger. [facility]
--- NOTE | 2018-08-11 14:19 | Hospitalist Progress Note ---
Date of Service August 11, 2018 Assessment & Plan (1) Breakthrough seizure: (1) Breakthrough seizure: hx seizure disorder on Keppra hx traumatic intracranial hemorrhage 2016 CT head no acute changes Neurologist Dr. Cheney consulted Recommend to increase Keppra to 1500 mg twice a day Hold off on Dilantin -- no recurrence continue above Enterococcus UTI History of enterococcus, E. 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 Teja Avila. Discussed case with patient and his son Mr. Teja Avila they are comfortable and agreeable with plan of care Disposition resident of [facility] PT/OT ordered Subjective ff up for breakthrough seizures seen sleeping, comfortable states she feels a little better today main symptom is dizziness- room spinning around, when she sits up/moves head, no nausea denies new focal neuro symptom denies abdominal pain, dysuria No other symptoms per patient's son Teja, patient seems more with it and alert today when he visi roberta her this morning Physical Exam Vital Signs (Past 24 Hours): Last Vital Signs Temp 36.3 C L 08/11/18 08:01 Pulse 57 L 08/11/18 09:02 Resp 22 08/11/18 08:01 BP 146/71 H 08/11/18 08:01 Pulse Ox 97 08/11/18 08:01 Physical Exam: General- oriented x 2, not in distress, speaks in sentences with no effort or accessory muscle use Eyes- anicteric Neck- no JVD Lungs- clear breath sounds bilaterally Heart- normal rate, regular rhythm; no murmurs Abdomen- normal bowel sounds, nondistended, soft, nontender Extremities- no pretibial edema, no calf tenderness Neuro- alert, oriented x 2; no gross focal neurologic deficits Skin- warm & dry Results & Data Laboratory Results Laboratory Results - last 24 hr 08/11/18 05:53 Creatinine 0.66 Est Cr Clr Drug Dosing 53.1 Est GFR ( Amer) 91.4 Est GFR (Non-Af Amer) 78.9 Total Creatine Kinase 467 H
[2018-08-11] MEDS ORDERED: MECLIZINE 12.5 MG TAB PO PRN (14:27)
[2018-08-11] MEDS ORDERED: LORazepam 0.5 MG/1 ML VIAL IV STA (18:32)
[2018-08-12] MEDS: PIPERACILLIN/TAZOBACTAM 3.375 GM in DEXTROSE 5% 100 ML IV SCH ×2 (04:08→11:53)
[2018-08-12 07:18] LABS: Creatinine Clr Calc Pharmacy 59.2 ml/min; Est GFR (African American) 94.3; Est GFR (Non-African American) 81.4
[2018-08-12] MEDS: PANTOprazole 40 MG TAB PO SCH (08:06)
[2018-08-12] MEDS: levETIRAcetam 500 MG TAB PO SCH ×2 (08:06→20:57)
[2018-08-12] MEDS: DULOXETINE HCL 30 MG CAP PO SCH (08:07)
[2018-08-12] MEDS: ENOXAPARIN INJ 30 MG/0.3 ML SYR SQ SCH (08:07)
[2018-08-12] MEDS ORDERED: FUROSEMIDE 20 MG in SYRINGE 0 ML IV ONE (11:01)
--- NOTE | 2018-08-12 14:58 | Infectious Disease Consult ---
Date of Consultation August 12, 2018 Assessment & Plan (1) UTI (urinary tract infection): Recurrent urinary tract infection with enterococcus, isolate fully sensitive so will change patient to oral amoxicillin 500 mg 3 times daily for 10-day course. Given multiple recurrences of infection with different organisms, may want to consider trial of rotating antibiotics once acute infection adequately treated. Will follow. 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 Has history of recurrent urinary tract infection, was found on admission to have evidence of infection with pyuria and dysuria, and culture is now grown a sensitive enterococcus. Has had other organisms in the past. Has not been evaluated by urology recently. D enies any flank pain. No fever. White count is normal. Allergies Allergy/AdvReac Type Severity Reaction Status Date / Time atropine Allergy Unknown ON [place] Verified 08/09/18 22:57 [place] LIST citalopram Allergy Unknown ON [place] Verified 08/09/18 22:57 VALLEY LIST fluoxetine Allergy Unknown ON [place] Verified 08/09/18 22:57 VALLEY LIST paroxetine Allergy Unknown ON [place] Verified 08/09/18 22:57 VALLEY LIST sertraline Allergy Unknown ON [place] Verified 08/09/18 22:57 VALLEY LIST diphenoxylate [From Lomotil] Allergy Unknown Unverified 08/09/18 22:57 Home Medications Home Medications Medication Instructions Recorded Confirmed Type acetaminophen [Tylenol] 325 - 650 mg PO Q4 PRN MDD 3 04/13/18 08/09/18 History GRAMS/24 HOURS amoxicillin 2,000 mg PO DIRECTED PRN 04/13/18 08/09/18 History bismuth subsalicylate [Kaopectate 30 ml PO UD PRN MDD 8x/day 04/13/18 08/09/18 History (bismuth subsalicy)] calcium carbonate-vitamin D3 1 tab PO BID 04/13/18 08/09/18 History [Calcium 600 + D(3)] cholecalciferol (vitamin D3) 2,000 unit PO DAILY 04/13/18 08/09/18 History [Vitamin D3] cyanocobalamin (vitamin B-12) 1,000 mcg IM MONTHLY 04/13/18 08/09/18 History duloxetine 30 mg PO DAILY 04/13/18 08/09/18 History hydrocodone-acetaminophen 0.5 tab PO Q6H PRN 04/13/18 08/09/18 History hydrocortisone 1 applic TOPICAL TID PRN 04/13/18 08/09/18 History loperamide 2 mg PO DIRECTED PRN 04/13/18 08/09/18 History omeprazole 20 mg PO DAILY 04/13/18 08/09/18 History polyethylene glycol 3350 [Miralax] 17 g PO DAILY PRN 04/13/18 08/09/18 History psyllium husk [Metamucil] 1 tbsp PO DAILY PRN 04/13/18 08/09/18 History zolpidem [Ambien] 5 mg PO HS PRN 04/13/18 08/09/18 History cranberry extract [Cranberry 1,500 mg PO DAILY 07/09/18 08/09/18 History Concentrate] levetiracetam 1,000 mg PO BID 07/09/18 08/09/18 History vit C,I-Yl-ovqku-lutein-zeaxan 1 tab PO BID 07/09/18 08/09/18 History [PreserVision AREDS-2] diphenhydramine-acetaminophen 1 - 2 tab PO HS PRN 07/18/18 08/09/18 History [Pain Reliever PM] Patient History Medical History Ambulatory dysfunction (Acute) Back pain (Acute) Back pain of thoracolumbar region (Acute 04/25/14) Compression fracture of L1 lumbar vertebra (Acute) Compression fracture of L2 (Acute) Diarrhea (Acute) Displaced fracture of right femoral neck Fall (Acute) Gait instability (Acute 04/28/14) Hip pain, right (Acute) Infection of prosthetic hip joint Intractable back pain (Acute 04/28/14) Lumbar vertebral fracture (Acute) Spinal stenosis (Acute) UTI (urinary tract infection) (Acute) Weakness (Acute) Surgical History Hx of brain surgery Family History Other Family history non-contributory Social History Communication Ability: Impaired Beliefs That Will Affect Care: None Current Living Situation: Personal Care Facility Feels Safe at Home: Yes Safety Concerns: Feels Safe At This Time Smoking Status: Never smoker Hx Alcohol Use: No Hx Substance Use: No Review of Systems All systems were reviewed and are negative except as per HPI Physical Exam Vital Signs (Past 24 Hours): Last Vital Signs Temp 36.6 C 08/12/18 11:55 Pulse 75 08/12/18 11:55 Resp 18 08/12/18 11:55 BP 117/63 08/12/18 11:55 Pulse Ox 93 08/12/18 11:55 Constitutional: WD/WN, vitals as above comfortable; no acute distress Eyes: PERRL, conjunctivae normal, anicteric sclerae ENMT: external ear and nose normal, oropharynx normal Neck: trachea midline, no thyromegaly neck nontender Respiratory: normal respiratory effort, lungs clear to auscultation normal percussion; does not use accessory muscles Cardiovascular: Rate/Rhythm: regular rate and regular rhythm Heart Sounds: normal S1 and normal S2; no gallop, no murmur and no cardiac rub Vessels: normal peripheral pulses; no JVD Gastrointestinal (Abdomen): normal bowel sounds, soft, nontender, no hepatosplenomegaly Musculoskeletal: Head/Neck/Chest: normocephalic, head atraumatic and neck supple Spine: thoracic spine normal to inspection and lumbar spine normal to inspection; no cervical spinal tenderness Skin: no rashes, warm and dry normal turgor; no lesions Neurologic: moves all extremities, + focal motor deficit and awake Motor/Sensory: + tremor Mild left-sided weakness Psychiatric: A+Ox3, euthymic affect Orientation: cooperative Lymphatic: no cervical or axillary lymphadenopathy no inguinal lymphadenopathy Results & Data Laboratory Results BMP 08/12/18 06:22 Creatinine 0.60 Laboratory Results - last 48 hr 08/11/18 08/12/18 05:53 06:22 Creatinine 0.66 0.60 Est Cr Clr Drug Dosing 53.1 59.2 Est GFR ( Amer) 91.4 94.3 Est GFR (Non-Af Amer) 78.9 81.4 Total Creatine Kinase 467 H Diagnostic Findings Microbiology 08/10/18 05:15 Urine,Clean Catch Urine Culture - Final Enterococcus faecalis XR chest 1V portable CLINICAL HISTORY: low o2 hypoxia COMPARISON STUDY: 07/09/2018 FINDINGS: Poor inspiratory volumes. Chronic interstitial and fibrotic change throughout both hemithoraces. No acute infiltrate. Diaphragms are smooth. IMPRESSION: Chronic change. No acute process. The above report was generated using voice recognition software. It may contain grammatical, syntax or spelling errors. Electronically signed by: Christian Bonilla M.D. 08/10/2018 6:30 AM
--- NOTE | 2018-08-12 19:13 | Hospitalist Progress Note ---
Date of Service August 12, 2018 Assessment & Plan (1) Breakthrough seizure: (1) Breakthrough seizure: hx seizure disorder on Keppra hx traumatic intracranial hemorrhage 2016 CT head no acute changes Neurologist Dr. Cheney consulted Recommend to increase Keppra to 1500 mg twice a day Hold off on Dilantin -- no recurrence, tolerating well continue above Head Tremors -- from muscle spasms? Ativan ordered, improved continue to monitor reduce Ambien to 2.5mg HS, then taper slowly at [facility] Enterococcus UTI History of enterococcus, E. coli in the past Urine culture (+) Enterococcusyasmin was on Zosyn, transitioned to Amoxicillin Incontinence contributing to recurrent UTIs, may need urology consultation as an outpatient ID consulted, recommend rotating antibiotics as outpatient Dizziness, likely from Vertigo PRN Meclizine Daisy Metz c/o PT ordered -- patient denies dizziness today hx NPH status post COAL WEIGHER shunt surgery Stable Situational hypertension, possibly chronic with cardiomegaly noted on prior x- rays Blood pressure improving Monitor history of PE status post anticoagulation On Lovenox for DVT prophylaxis Hyperglycemia rule out DM A1c 5.7 Subclinical hypothyroidism Clinically euthyroid Repeat thyroid function test as an outpatient hyperparathyroidism as per records DNR as per patient's previous wishes as per son/POA, Mr. Teja Avila. Discussed case with patient and his son Mr. Teja Avila they are comfortable and agreeable with plan of care Disposition resident of [facility] PT/OT ordered Subjective ff up for breakthrough seizure, UTI seen resting in bed, more relaxed, comfortable states she feels improved today has some mild leg cramps, which she gets in the morning no note of seizure recurrence states head and arm tremors is less no abdominal pain, urinary symptoms no other symptoms Physical Exam Vital Signs (Past 24 Hours): Last Vital Signs Temp 36.3 C L 08/12/18 15:00 Pulse 67 08/12/18 15:00 Resp 16 08/12/18 15:00 BP 123/77 08/12/18 15:00 Pulse Ox 96 08/12/18 15:00 Physical Exam: General- oriented x 2, not in distress, speaks in sentences with no effort or accessory muscle use Eyes- anicteric Neck- no JVD Lungs- clear breath sounds bilaterally Heart- normal rate, regular rhythm; no murmurs Abdomen- normal bowel sounds, nondistended, soft, nontender Extremities- no pretibial edema, no calf tenderness Neuro- alert, oriented x 3; (+) mild head tremors when sitting upright no other new gross focal neurologic deficits Skin- warm & dry Results & Data Laboratory Results Laboratory Results - last 24 hr 08/12/18 06:22 Creatinine 0.60 Est Cr Clr Drug Dosing 59.2 Est GFR ( Amer) 94.3 Est GFR (Non-Af Amer) 81.4
--- NOTE | 2018-08-12 19:20 | Hospitalist Progress Note ---
Date of Service August 12, 2018 Assessment & Plan (1) Breakthrough seizure: (1) Breakthrough seizure: hx seizure disorder on Keppra hx traumatic intracranial hemorrhage 2016 CT head no acute changes Neurologist Dr. Cheney consulted Recommend to increase Keppra to 1500 mg twice a day Hold off on Dilantin -- no recurrence, tolerating well continue above Head Tremors -- from muscle spasms? Ativan ordered, improved continue to monitor reduce Ambien to 2.5mg HS, then taper slowly at [facility] Enterococcus UTI History of enterococcus, E. 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 Teja Avila. Discussed case with patient and his son Mr. Teja Avila they are comfortable and agreeable with plan of care Disposition resident of [facility] PT/OT ordered Subjective ff up for breakthrough seizure, UTI seen resting in bed, more relaxed, comfortable states she feels improved today has some mild leg cramps, which she gets in the morning no note of seizure recurrence states head and arm tremors is less no abdominal pain, urinary symptoms no other symptoms Physical Exam Vital Signs (Past 24 Hours): Last Vital Signs Temp 36.3 C L 08/12/18 15:00 Pulse 67 08/12/18 15:00 Resp 16 08/12/18 15:00 BP 123/77 08/12/18 15:00 Pulse Ox 96 08/12/18 15:00 Physical Exam: General- oriented x 2, not in distress, speaks in sentences with no effort or accessory muscle use Eyes- anicteric Neck- no JVD Lungs- clear breath sounds bilaterally Heart- normal rate, regular rhythm; no murmurs Abdomen- normal bowel sounds, nondistended, soft, nontender Extremities- no pretibial edema, no calf tenderness Neuro- alert, oriented x 3; no gross focal neurologic deficits Skin- warm & dry
[2018-08-12] MEDS: AMOXICILLIN 500 MG CAP PO SCH (20:57)
[2018-08-12] MEDS: ZOLPIDEM TARTRATE 5 MG TAB PO SCH (20:57)
--- NOTE | 2018-08-12 21:28 | Progress Note ---
DATE: 08/12/2018 SUBJECTIVE: I am seeing Ms. Avila in followup of focal motor seizures which broke through Keppra 1000 b.i.d. and required Dilantin load in addition to a partial Keppra load. She has not had any recurrent events and we have not continued Dilantin. Last night, Dr. Soto contacted me regarding movement of the head. I was able to FaceTime him and see the patient. The patient appeared to have a fine head tremor which was up and down as well as some hand tremor. No dystonia or seizure activity was noted. He gave her some lorazepam and she indicated that that was helpful. She does tell me that at least on one other occasion, she has been told that she has tremor. She was concerned that this may represent seizure. OBJECTIVE: GENERAL: She is awake and alert. NEUROLOGIC: She has a fine head tremor and minimal tremor with intention. IMPRESSION AND PLAN: 1. The patient appears to have a head tremor. Perhaps the stress of the hospitalization, multiple medications have contributed to that. Thyroid function should be checked if it has not been done so recently. 2. NPH. 3. Focal motor seizures as above. Continue Keppra 1500 twice a day. Follow up post-discharge with Katelyn Berger.
[2018-08-13 06:52] LABS: Creatinine Clr Calc Pharmacy 69.3 ml/min; Est GFR (African American) 99.5; Est GFR (Non-African American) 85.9
[2018-08-13] MEDS: PANTOprazole 40 MG TAB PO SCH (08:44)
[2018-08-13] MEDS: DULOXETINE HCL 30 MG CAP PO SCH (08:44)
[2018-08-13] MEDS: AMOXICILLIN 500 MG CAP PO SCH ×3 (08:44→21:16)
[2018-08-13] MEDS: levETIRAcetam 500 MG TAB PO SCH ×2 (08:44→21:16)
[2018-08-13] MEDS: ENOXAPARIN INJ 30 MG/0.3 ML SYR SQ SCH (08:45)
[2018-08-13] MEDS: ACETAMINOPHEN 325 MG TAB PO PRN (08:45)
--- NOTE | 2018-08-13 09:55 | Hospitalist Progress Note ---
Date of Service August 13, 2018 Assessment & Plan (1) Breakthrough seizure: (1) Breakthrough seizure: hx seizure disorder on Keppra hx traumatic intracranial hemorrhage 2016 CT head no acute changes Neurologist Dr. Cheney consulted Recommend to increase Keppra to 1500 mg twice a day Hold off on Dilantin --No recurrence since admission, tolerating increased dose of Keppra well Head Tremors -- from muscle spasms? Ativan ordered, improved continue to monitor reduce Ambien to 2.5mg HS, then taper slowly at [facility] --Tremors resolved Enterococcus UTI History of enterococcus, E. coli in the past Urine culture (+) Enterococcusyasmin was on Zosyn, transitioned to Amoxicillin times 10 days total Incontinence contributing to recurrent UTIs, may need urology consultation as an outpatient ID consulted, recommend rotating antibiotics as outpatient, will need outpatient follow-up with Dr. 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 Teja Avila. Discussed case with patient and his son Mr. Teja Avila they are comfortable and agreeable with plan of care Disposition resident of [facility] anticipate return to [facility] home tomorrow with continued PT and OT Subjective Follow-up for breakthrough seizures, UTI Seen resting in bed, sitting up, comfortable States she feels better today, thinking more clearly Had a good night's rest Has lower extremity cramping Tremors resolved No recurrence of seizures Denies other symptoms Physical Exam Vital Signs (Past 24 Hours): Last Vital Signs Temp 36.9 C 08/13/18 06:53 Pulse 60 08/13/18 06:53 Resp 20 08/13/18 06:53 BP 121/65 08/13/18 06:53 Pulse Ox 93 08/13/18 06:53 Physical Exam: General- oriented x 2, not in distress, speaks in sentences with no effort or accessory muscle use Eyes- anicteric Neck- no JVD Lungs- clear BS BL Heart- normal rate, regular rhythm; no murmurs Abdomen- normal bowel sounds, nondistended, soft, nontender Extremities- no pretibial edema, no calf tenderness Neuro- alert, oriented x 2; no gross focal neurologic deficits Skin- warm & dry Results & Data Laboratory Results Laboratory Results - last 24 hr 08/13/18 06:09 Creatinine 0.51 L Est Cr Clr Drug Dosing 69.3 Est GFR ( Amer) 99.5 Est GFR (Non-Af Amer) 85.9
[2018-08-13] MEDS: ZOLPIDEM TARTRATE 5 MG TAB PO SCH (21:15)
[2018-08-14] MEDS: PANTOprazole 40 MG TAB PO SCH (08:25)
[2018-08-14] MEDS: DULOXETINE HCL 30 MG CAP PO SCH (08:25)
[2018-08-14] MEDS: levETIRAcetam 500 MG TAB PO SCH (08:26)
[2018-08-14] MEDS: AMOXICILLIN 500 MG CAP PO SCH (08:26)
[2018-08-14] MEDS: ENOXAPARIN INJ 30 MG/0.3 ML SYR SQ SCH (08:27)
--- NOTE | 2018-08-14 09:46 | Hospitalist Progress Note ---
Date of Service August 14, 2018 Assessment & Plan (1) Breakthrough seizure: Breakthrough seizure hx seizure disorder on Keppra hx traumatic intracranial hemorrhage 2016 CT head no acute changes Neurologist Dr. Cheney consulted Recommend to increase Keppra to 1500 mg twice a day Hold off on Dilantin --No recurrence since admission, tolerating increased dose of Keppra well -- continue increased dose of Keppra 1500mg BID ff up with Neurologist Dr. Feliciano in 2 weeks Head Tremors -- from muscle spasms? Ativan ordered, improved continue to monitor reduce Ambien to 2.5mg HS, then taper slowly at [facility]--> to prevent drowsiness as patient already on increased Keppra --Tremors resolved Enterococcus UTI History of enterococcus, E. coli in the past Urine culture (+) Enterococcusyasmin was on Zosyn, transitioned to Amoxicillin times 10 days total afebrile, no urinary symptoms continue Amoxicillin 500mg TID Incontinence contributing to recurrent UTIs, may need urology consultation as an outpatient ID consulted Dr. Olivera, recommend rotating antibiotics as outpatient, will need outpatient follow-up with Dr. 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 Teja Avila. Discussed case with patient and his son Mr. Teja Avila they are comfortable and agreeable with plan of care Disposition resident of [facility] to [facility] with continued PT and OT ff up with PCP in 1 week ff up with ID [facility] Dr. Olivera in 1-2 weeks ff up with Neurologist Dr. Feliciano in 2 weeks Subjective ff up for breakthrough seizure, uti seen resting in wheelchair comfortable, oriented states she feels better overall and would like to be discharged today denies headache, dizziness, tremors no other symptoms states she is ready and would like to be discharged soon Physical Exam Vital Signs (Past 24 Hours): Last Vital Signs Temp 36.7 C 08/14/18 07:00 Pulse 64 08/14/18 08:00 Resp 18 08/14/18 07:00 BP 111/62 08/14/18 07:00 Pulse Ox 96 08/14/18 07:00 Physical Exam: General- oriented x 2, not in distress, speaks in sentences with no effort or accessory muscle use Eyes- anicteric Neck- no JVD Lungs- clear BS BL, no rales/wheezing Heart- normal rate, regular rhythm; no murmurs Abdomen- normal bowel sounds, nondistended, soft, nontender Extremities- no pretibial edema, no calf tenderness Neuro- alert, oriented x 2; no new gross focal neurologic deficits Skin- warm & dry
--- NOTE | 2018-08-14 10:15 | Discharge Summary ---
Date of Service August 14, 2018 Admission HPI Per Admitting Provider History obtained from patient, family, and records. Limited history from patient secondary to postictal state. 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 Patient confined at [facility] April 2017 for L sided weakness and seizure- like activity attributed to R intracranial hemorrhage attributed to trauma following fall from bed. Patient discharged on Keppra for seizure prophylaxis. Keppra discontinued during subsequent rehab stay as per records. Recent confinement [facility] September 2017 for breakthrough seizures. Keppra restarted on discharge. As per records, patient noted to have focal seizure, head shaking to the left, left arm and leg shaking around dinnertime last night. No recent changes with home AED medication as per records. Patient completed prophylactic Tamiflu cou rse after a sick resident tested for positive flu at the [facility]. Patient denies chest pain, S OB, cough, dysuria, diarrhea symptoms. Patient still seizing after receiving doses of Ativan en route to the ER. Seizure terminated after IV Keppra and IV Fosphenytoin administered. 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 Admission Exam Per Admitting Provider Vital Signs (Past 24 Hours): Last Vital Signs Temp 36.5 C 08/09/18 21:15 Pulse 82 08/10/18 01:00 Resp 23 08/10/18 01:00 BP 158/77 H 08/10/18 01:00 Pulse Ox 92 08/10/18 01:00 Physical Exam: GENERAL: Comfortable, lethargic, no respiratory distress SKIN: Normal color, warm HEENT: [place] palpebral conjunctivae, no ptosis, dry buccal mucosa NECK : Supple, no tenderness CHEST : CTA, no tenderness HEART : RRR, no obvious murmurs ABDOMEN: Some distention, nontender EXTREMITIES : No LE swelling/tenderness, no other conspicuous deformities noted NEUROLOGIC : Lethargic, no facial asymmetry, no other gross focality Principal Diagnosis BREAKTHROUGH SEIZURE, RECURRENT UTI Discharge Exam Vital Signs (Past 24 Hours): Last Vital Signs Temp 36.7 C 08/14/18 07:00 Pulse 64 08/14/18 08:00 Resp 18 08/14/18 07:00 BP 111/62 08/14/18 07:00 Pulse Ox 96 08/14/18 07:00 Physical Exam: General- oriented x 2, not in distress, speaks in sentences with no effort or accessory muscle use Eyes- anicteric Neck- no JVD Lungs- clear BS BL, no rales/wheezing Heart- normal rate, regular rhythm; no murmurs Abdomen- normal bowel sounds, nondistended, soft, nontender Extremities- no pretibial edema, no calf tenderness Neuro- alert, oriented x 2; no new gross focal neurologic deficits Skin- warm & dry Discharge Data Allergies Allergy/AdvReac Type Severity Reaction Status Date / Time atropine Allergy Unknown ON REDDING Verified 08/09/18 22:57 VALLEY LIST citalopram Allergy Unknown ON REDDING Verified 08/09/18 22:57 VALLEY LIST fluoxetine Allergy Unknown ON REDDING Verified 08/09/18 22:57 VALLEY LIST paroxetine Allergy Unknown ON REDDING Verified 08/09/18 22:57 VALLEY LIST sertraline Allergy Unknown ON REDDING Verified 08/09/18 22:57 VALLEY LIST diphenoxylate [From Lomotil] Allergy Unknown Unverified 08/09/18 22:57 Consultations 08/10/18 00:53 ED Decision to Admit Stat 08/10/18 03:04 Consult Neurology Routine 08/12/18 10:32 Consult Infectious Diseases Routine Ordered Studies 08/09/18 21:05 CT head/brain wo con Stat CT head/brain wo con CLINICAL HISTORY: 88 years-old Female with sz. Acute seizure TECHNIQUE: Multiple axial CT images of the head were obtained without contrast. A dose lowering technique was utilized adhering to the principles of ALARA. CT DOSE: 614.27 mGy.cm COMPARISON: CT head 11/03/2017. FINDINGS: Age-related involutional changes. Ventriculomegaly redemonstrated, transverse dimension of the lateral ventricles measuring up to 5.4 cm, previously 5.3 cm. Right ventriculostomy catheter appears unchanged. White matter hypodensities suggestive of chronic microvascular ischemic change. Cerebral vascular calcifications also noted. No acute intracranial hemorrhage, midline shift, territorial ischemia, abnormal extra-axial collections or intracranial mass identified. Areas of encephalomalacia about the right frontal and parietal lobes, unchanged. The calvarium is intact. Mastoid air cells are clear. Mild mucosal thickening about the nasal turbinates and paranasal sinuses. Soft tissues and orbits appear unremarkable. Prior bilateral cataract repair. IMPRESSION: 1. No acute intracranial abnormality. 2. Chronic findings as above. Hospital Course (1) Breakthrough seizure: Breakthrough seizure hx seizure disorder on Keppra hx traumatic intracranial hemorrhage 2016 CT head no acute changes Neurologist Dr. Cheney consulted Recommend to increase Keppra to 1500 mg twice a day from 1000mg twice a day Hold off on Dilantin --No recurrence since admission, tolerating increased dose of Keppra well -- continue increased dose of Keppra 1500mg BID ff up with Neurologist Dr. Feliciano in 2 weeks Head Tremors -- from muscle spasms? Ativan ordered, improved continue to monitor reduce Ambien to 2.5mg HS, then taper slowly at [facility]--> to prevent drowsiness as patient already on increased Keppra -- Tremors resolved Enterococcus UTI -- History of recurrent UTI, enterococcus, E. coli in the past Urine culture (+) Enterococcus, pansensitive ID consulted, was on Zosyn, transitioned to Amoxicillin times 10 days total afebrile, no urinary symptoms continue Amoxicillin 500mg TID x 7 more days to complete 10 days therapy Incontinence contributing to recurrent UTIs, may need urology consultation as an outpatient ID consulted Dr. Olivera, recommend rotating antibiotics as outpatient x 6 weeks course, will need outpatient follow-up with Dr. 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 Teja Avila they are comfortable and agreeable with plan of care Disposition resident of [facility] to [facility] with continued PT and OT ff up with PCP in 1 week ff up with ID [facility] Dr. Olivera in 1-2 weeks ff up with Neurologist Dr. Feliciano in 2 weeks Total Time Total Time Spent Total Time Spent (In Minutes): 35 minutes Discharge Plan Discharge Items Patient Disposition: Home - Self-Care Reason For Visit: BREAKTHROUGH SEIZURE Discharge Diagnosis: BREAKTHROUGH SEIZURE, URINARY TRACT INFECTION Discharge Goals: Diagnostic testing and Therapeutic intervention Activity: Resume your previous activity Activity Comment: CONTINUE PT/OT AT [facility] Non-emergency contact: Primary Care Provider Call non-emergency contact if: you have any medication questions and you have a fever Follow-up/Referrals: Ariadne Zelaya [Physician] - 08/20/18 2:55 pm Diet: Heart Healthy Addtl Provider Instructions: PLEASE FOLLOW UP WITH PRIMARY CARE PHYSICIAN DR. ARIADNE ZELAYA NEXT WEEK OUTL INED ABOVE. (DR. REGALADO HAS NO AVAILABLE SLOTS NEXT WEEK). FOLLOW UP WITH [facility] INFECTIOUS DISEASE SPECIALIST DR. OLIVERA IN 1-2 WEEKS. FOLLOW UP WITH [facility] NEUROLOGIST DR. FELICIANO IN 2 WEEKS. TEL.NO. [phone] Prescriptions: New amoxicillin 500 mg Capsule 500 mg PO TID 7 Days Qty: 21 RF: 0 levetiracetam [Keppra] 500 mg Tablet 1,500 mg PO BID 30 Days Qty: 180 RF: 1 zolpidem 5 mg Tablet 2.5 mg PO HS Qty: 4 RF: 0 Continued acetaminophen [Tylenol] 325 mg Tablet 325 - 650 mg PO Q4 MDD 3 GRAMS/24 HOURS PRN (Reason: Fever Or Pain) RF: 0 loperamide 2 mg Capsule 2 mg PO DIRECTED PRN (Reason: Diarrhea) RF: 0 amoxicillin 500 mg Tablet 2,000 mg PO DIRECTED PRN (Reason: PRIOR TO DENTAL VISITS) RF: 0 hydrocortisone 1 % Cream 1 applic TOPICAL TID PRN (Reason: Itching) RF: 0 cyanocobalamin (vitamin B-12) 1,000 mcg/mL Solution 1,000 mcg IM MONTHLY RF: 0 bismuth subsalicylate [Kaopectate (bismuth subsalicy)] 262 mg/15 mL Suspension 30 ml PO UD MDD 8x/day PRN (Reason: Diarrhea) RF: 0 omeprazole 20 mg Capsule,Delayed Release(Dr/Ec) 20 mg PO DAILY RF: 0 polyethylene glycol 3350 [Miralax] 17 gram/dose Powder 17 g PO DAILY PRN (Reason: Constipation) RF: 0 duloxetine 30 mg Capsule,Delayed Release(Dr/Ec) 30 mg PO DAILY RF: 0 Calcium 600 + D(3) 600 mg calcium- 200 unit Capsule 1 tab PO BID RF: 0 cholecalciferol (vitamin D3) [Vitamin D3] 2,000 unit Capsule 2,000 unit PO DAILY RF: 0 Metamucil 3.4 gram/5.4 gram Powder 1 tbsp PO DAILY PRN (Reason: Constipation) RF: 0 PreserVision AREDS-2 [id number] [id number]-[id number]-mg Capsule 1 tab PO BID RF: 0 cranberry extract [Cranberry Concentrate] 500 mg Capsule 1,500 mg PO DAILY RF: 0 Discontinued hydrocodone-acetaminophen 5-325 mg Tablet 0.5 tab PO Q6H PRN (Reason: Pain) RF: 0 zolpidem [Ambien] 5 mg Tablet 5 mg PO HS PRN (Reason: Sleep) RF: 0 levetiracetam 1,000 mg Tablet 1,000 mg PO BID RF: 0 diphenhydramine-acetaminophen [Pain Reliever PM] 25-500 mg Tablet 1 - 2 tab PO HS PRN (Reason: Pain) RF: 0 Stand-Alone Forms: [facility] Discharge Orders: Discharge Order (Routine); Ordered 08/14/18 Ordered By: Michael Soto Admission Data Admit Date/Time: 08/10/18 06:10 Attending Provider: Michael Soto Admit Provider: Cecil Hale Primary Care Provider: Jefferson Regalado Other Providers: Cecil Hale ; Katelyn Feliciano ; Lorenzo Olivera ; Naomy Silver ; IRB Approved Study,Ting Service: Telemetry Medical
== END 2018-08-14 11:35 | disposition home or self-care (01) | DRG 101 ==
LOC: 2N 20:46 → ED 20:46 → 2N 08-10 02:37